=== PATIENT | male | born 1955 | race Caucasian/White ===

== ENCOUNTER 2024-06-06 16:38 | Inpatient (IN) | payer MEDICARE, OTHER, SELFPAY ==
[2024-06-06] VITALS (25 sets, daily range): BP systolic 20–159; BP diastolic 55–97; BMI 35.9
[2024-06-06] MEDS: ZOFRAN 4 MG IV (11:23)
[2024-06-06] MEDS: SUBLIMAZE 100 MCG IV (11:23)
[2024-06-06 11:34] LABS: Hemoglobin 19.4 g/dL (13.0-18.0); Mean Corpuscular Hgb 32.4 pg (27.0-31.0); Mean Platelet Volume 9.7 fL (7.4-10.4); Nucleated Red Blood Cells % 0 % (-)
--- NOTE | 2024-06-06 11:39 | ED.GENMED ---
History of Present Illness
<Neil Noe PA-C - Last Filed: 06/06/24 13:38>
General
Chief Complaint: Abdominal Pain
Time Seen by Provider: 06/06/24 11:09
History of Present Illness
History of Present Illness:
68-year-old male with history of insulin-dependent diabetes and peptic ulcer disease presents to the emergency department for evaluation of epigastric pain that began 2 days ago, states that the pain was quite minimal for the past 48 hours but
abruptly became worse this morning. On arrival the patient is moaning and noted to be mottled from the periumbilical region down to the legs. He denies any vomiting or melanotic stools. No history of intra-abdominal surgeries. No known history
of aortic vascular disease.
Past History
<Neil Noe PA-C - Last Filed: 06/06/24 13:38>
Past History
ED Past Medical History: None
ED Past Surgical History: Other (Removal of a 'intestinal cyst')
Social History
Tobacco: Smoker
Alcohol: Occasional
Drug: None
Review of Systems
<Neil Noe PA-C - Last Filed: 06/06/24 13:38>
Review of Systems
Allergies reviewed?: Yes
All Other Systems: ROS reviewed and negative except as documented in HPI and ROS
Phy Exam
<Neil Noe PA-C - Last Filed: 06/06/24 13:38>
Physical Exam
Physical Exam:
GEN: Toxic appearing, diffuse lower abdominal/lower extremity mottling
Eyes: PERRLA, EOMs intact, no scleral icterus
HENT: NCAT, oral mucosa moist,
Lungs: CTAB, no wheezes, rales, rhonchi, normal chest wall excursion
Cardiac: Tachycardic, regular
Abdomen: Firm, peritoneal
Neuro: AO x 3
MSK: No gross deformity or ecchymosis. No edema. No digital clubbing
Skin: Abdominal and lower extremity mottling, dorsalis pedis pulses 2+ bilaterally
Psych: Anxious and uncomfortable
Course
<Neil Noe PA-C - Last Filed: 06/06/24 13:38>
Orders/Labs/Results
Orders:
Orders
06/06/24 11:03
Electrocardiogram (*1) Urgent
Reason for Study: Abdominal Pain
06/06/24 11:04
EKG- Treatment ONCE
06/06/24 11:06
Complete Blood Count/With Diff Urgent
Comprehensive Metabolic Panel Urgent
Lipase Urgent
06/06/24 11:19
CT Chest/abd/pelvis Angio W/wo Stat
Comment:
Reason For Exam: Abdominal pain mottled extremis
Cardiac Monitoring- Treatment ONCE
IV Insert/Care/Rem.- Treatment PRN
Fentanyl Citrate/Pf [Sublimaze] 100 mcg .ROUTE .STK-MED ONE
Ondansetron Injectable [Zofran] 4 mg .ROUTE .STK-MED ONE
Pulse Ox/cont/shift [RESP] Stat
Quantity: 1
06/06/24 11:20
Electrocardiogram (*1) Stat
Reason for Study: Other
Other Reason for Exam: GI Bleed
EKG- Treatment ONCE
06/06/24 11:21
Fentanyl Citrate/Pf [Sublimaze] 100 mcg IV NOW STA
Ondansetron Injectable [Zofran] 4 mg IV NOW STA
06/06/24 11:24
Type+Screen Urgent
Lactic Acid Urgent
06/06/24 11:50
Blood Culture Urgent
CEDRIC Source: Blood/Venous
Specimen Description:
Blood Culture Urgent
CEDRIC Source: Blood/Venous
Specimen Description:
06/06/24 11:55
Ampicillin/Sulbactam 3 G [Unasyn] 3 gm 0.9% Sodium Chloride 100 ml [Nss] 100 ml IV NOW
06/06/24 11:57
0.9% Sodium Chloride 1000 ml [Nss] 1,000 ml IV BOLUS
HYDROmorphone [Dilaudid] 1 mg IV NOW STA
06/06/24 12:06
0.9% Sodium Chloride 1000 ml [Nss] 1,750 ml IV BOLUS
06/06/24 12:37
Pantoprazole [Protonix IV] 40 mg IV NOW STA
06/06/24 12:42
HYDROmorphone [Dilaudid] 0.25 mg IV PACU-Q5MPRN PRN
HYDROmorphone [Dilaudid] 0.5 mg IV PACU-Q5MPRN PRN
Meperidine [Demerol] 12.5 mg IV PACU-Q5MPRN PRN
Ondansetron Injectable [Zofran] 4 mg IV PACU-ONCEPRN PRN
Prochlorperazine [Compazine] 5 mg IV PACU-ONCEPRN PRN
Notify MD As Directed
Notify physician if: for SDS patients with known or suspected sleep obstructive sleep apnea, monitor in the
PACU.
Notify MD for any apneic/desaturation episodes
O2 Therapy [RESP] Urgent
Titrate/Wean O2 to maintain O2 sat greater than (%): 92
Special Instructions: -Provide supplemental oxygen to achieve O2 sat of 92% or greater.
-After 15 min, may wean O2 and discontinue if patient is able to maintain O2 sat of 92%
or greater during recovery period.
If patient is a discharge home, without oxygen therapy, notify anestheiologist if
unable to maintain O2 SAT of 92% or greater on room air for MD clearance.
06/06/24 12:45
Normosol (Mult Electrolytes) [Normosol-R] 1,000 ml IV PER PROTOCOL
06/06/24 13:00
HYDROmorphone [Dilaudid] 0.5 mg IV NOW STA
06/06/24 13:28
Bupivacaine Mpf 0.25% [Sensorcaine-Mpf 0.25% Vial] 30 ml .ROUTE .STK-MED ONE
Dexamethasone Pf [Decadron] 10 mg .ROUTE .STK-MED ONE
06/06/24 14:06
Bupivacaine Mpf 0.25% [Sensorcaine-Mpf 0.25% Vial] 30 ml .ROUTE .STK-MED ONE
Dexamethasone Sod Phosphate [Decadron] 20 mg .ROUTE .STK-MED ONE
Fentanyl Citrate/Pf [Sublimaze] 100 mcg .ROUTE .STK-MED ONE
Lidocaine HCl/Pf [Xylocaine-Mpf 1% Vial] 50 mg .ROUTE .STK-MED ONE
Ondansetron Injectable [Zofran] 4 mg .ROUTE .STK-MED ONE
Phenylephrine HCl/0.9% NaCl [Antony-Synephrine] 1,000 mcg .ROUTE .STK-MED ONE
Propofol [Diprivan] 20 ml .ROUTE .STK-MED
Rocuronium [place] [Rocuronium] 50 mg .ROUTE .STK-MED ONE
Succinylcholine Chloride [Succinylcholine] 200 mg .ROUTE .STK-MED ONE
06/06/24 14:11
Anaerobic Culture Routine
CEDRIC Source: Peritoneal Fluid
Specimen Description:
Date Specimen was Collected: 06/06/24
Time Specimen was Collected: 14:13
Wound/Abscess/Other Culture Routine
CEDRIC Source: Abdomen
Specimen Description:
Date Specimen was Collected: 06/06/24
Time Specimen was Collected: 14:13
Comment: Peritoneal fluid
06/06/24 14:46
Sugammadex Sodium [Bridion] 200 mg .ROUTE .STK-MED ONE
06/06/24 Dinner
NPO
Allow oral meds: No
Allow clear liquids: No
NPO with Ice Chips: No
06/06/24 15:08
Phenylephrine HCl/0.9% NaCl [Antony-Synephrine] 1,000 mcg .ROUTE .STK-MED ONE
06/06/24 15:14
Code Status As Directed
Resuscitation Status: Full Code
HYDROmorphone [Dilaudid] 0.5 mg IV Q3HPRN PRN
HYDROmorphone [Dilaudid] 1 mg IV Q3HPRN PRN
Activity As Directed
Activity Level: Out of Bed-Early Mobility
Anti-embolism (JEREMIAH) Hose As Directed
Type: Thigh high
Drains As Directed
Type: Piotr Tobias
Location: right abdomen
Dressing change/site care: cover with drain sponge: change daily
To suction: Yes: bulb
Gastrointestinal Tubes As Directed
Type: [place] sump
To suction?: Yes
Type of suction: Low intermittent
Directions to clamp NG tube: clamp for ambulation <30min
Irrigate tube?: Yes
Irrigant: Tap Water
Frequency: Q4H
Amount in mls: 30
Irrigation Directions: Irrigate Q4H and PRN
Intake/ Output As Directed
Frequency: Per unit guidelines
Vital Signs As Directed
Frequency: Per unit guidelines
06/06/24 15:15
0.9% Sodium Chloride 1000 ml [Nss] 1,000 ml IV 150 mls/hr
06/06/24 15:16
Catheter- Indwelling As Directed
Reason for insertion: Christina-Op Remove POD #2
06/06/24 15:17
Phenylephrine [Antony-Synephrine] 10 mg .ROUTE .STK-MED ONE
06/06/24 15:19
Ondansetron Injectable [Zofran] 4 mg IV Q6HPRN PRN
06/06/24 15:20
Pneumatic Compression Sleeves As Directed
Type: Knee high
DX Deep Vein Thrombosis Video Routine
06/06/24 15:55
Pantoprazole 80 mg/100 ml Nss [Protonix] 80 mg in 100 ml IV NOW
06/06/24 15:56
Consult Hospitalist [HOSPITALIST CONSULT] Routine
Consulting Provider: Maria Isabel Santos
Was physician already notified: Yes
Reason for consult: medical management
Consult Human Resources Admin [Human Resources Admin Consult] Routine
Consulting Provider: Nela Sims
Was physician already notified: Yes
Reason for consult: intensive care management
Consult Surgery [SURGICAL CONSULT] Stat
Consulting Provider: Jass Sanchez
Was physician already notified: Yes
Reason for consult: ED consult for perforated viscous
06/06/24 16:00
Pantoprazole 80 mg/100 ml Nss [Protonix] 80 mg in 100 ml IV Q10H
Piperacillin/Tazo 3.375 Gram [Zosyn] 3.375 gram in 50 ml IV Q6H
06/06/24 16:05
Insulin Human Regular [Novolin R] 100 units .ROUTE .STK-MED ONE
06/06/24 16:19
Dextrose 50%-Water [Dextrose 50% Syringe] 12.5 grams IV PROCEDURE-PRN PRN
Insulin Aspart [NOVOLOG vial] See Protocol SC PROCEDURE- Q2H PRN PRN
Bedside Glucose Monitoring As Directed
Frequency: Q2H
Additional Instructions:: UNTIL PATIENT LEAVES PROCEDURE AREA
06/06/24 16:27
Admit Patient As Directed
Co-Sign Provider:
Level of Care: Inpatient admission
Assign to:: ICU
Physician / Group: maria isabel santos
Diagnosis: Perforated duodenal ulcer, peritonitis
Reason for Hospitalization: Perforated duodenal ulcer, peritonitis
Expected length of stay greater than two midnights?: Yes
ELOS- Estimated Length of Stay in days: 3
I certify the patient meets the requirements for IP care: Yes
06/06/24 16:30
Change Attending Physician As Directed
Change attending physician to: Maria Isabel Santos
06/06/24 16:31
HydrALAZINE [Apresoline] 5 mg IV Q6HPRN PRN
06/06/24 20:00
Pantoprazole [Protonix IV] 40 mg IV BID
06/07/24 06:00
Basic Metabolic Panel IN AM
Complete Blood Count/No Diff IN AM
Complete Blood Count/With Diff IN AM
Comprehensive Metabolic Panel IN AM
06/07/24 08:00
Nicotine [Nicoderm Transdermal] 21 mg TRANSDERM DAILY
Prednisolone Acetate [Pred Forte 1% Eye Drops] 1 drop LEFT EYE DAILY
06/08/24 06:00
Complete Blood Count/With Diff IN AM
Comprehensive Metabolic Panel IN AM
Abnormal Lab Results
06/06/24 06/06/24 06/06/24
11:06 11:24 16:03
WBC 13.2 H 10^3/uL
(4.8-10.8)
Hgb 19.4 H g/dL
(13.0-18.0)
Hct 54.8 H %
(39.0-52.0)
MCH 32.4 H pg
(27.0-31.0)
Abs Immat Gran (auto) 0.1 H 10^3/uL
(0-0.05)
Absolute Neuts (auto) 11.3 H 10^3/uL
(1.4-6.5)
Absolute Lymphs (auto) 0.9 L 10^3/uL
(1.2-3.4)
Absolute Monos (auto) 0.9 H 10^3/uL
(0.1-0.6)
Immature Gran % 0.6 H %
(0-0.5)
Neutrophils % 85.3 H %
(42.2-75.2)
Lymphocytes % 7.1 L %
(20.5-51.1)
Carbon Dioxide 21 L mmol/L
(22-30)
BUN 25 H mg/dl
(9-20)
Glucose 294 H mg/dl
(70-99)
Lactic Acid 3.1 H mmol/L
(0.7-2.0)
ALT 54 H U/L
(0-50)
Alkaline Phosphatase 154 H U/L
(38-126)
POC Glucose 203 H mg/dl
(70-99)
06/06/24 11:06
06/06/24 11:06
Vital Signs
Initial and Last Documented VS:
Initial Vital Signs
Temp Pulse Resp BP Pulse Ox
97.7 F 102 28 146/83 98
06/06/24 11:02 06/06/24 11:02 06/06/24 11:02 06/06/24 11:02 06/06/24 11:02
Last Documented Vital Signs
Temp Pulse Resp BP Pulse Ox
98.7 F 108 16 122/68 98
06/06/24 16:00 06/06/24 16:45 06/06/24 16:45 06/06/24 16:45 06/06/24 16:45
<Aubrey Rodgers MD - Last Filed: 06/06/24 16:52>
Orders/Labs/Results
Orders:
Orders
06/06/24 11:03
Electrocardiogram (*1) Urgent
Reason for Study: Abdominal Pain
06/06/24 11:04
EKG- Treatment ONCE
06/06/24 11:06
Complete Blood Count/With Diff Urgent
Comprehensive Metabolic Panel Urgent
Lipase Urgent
06/06/24 11:19
CT Chest/abd/pelvis Angio W/wo Stat
Comment:
Reason For Exam: Abdominal pain mottled extremis
Cardiac Monitoring- Treatment ONCE
IV Insert/Care/Rem.- Treatment PRN
Fentanyl Citrate/Pf [Sublimaze] 100 mcg .ROUTE .STK-MED ONE
Ondansetron Injectable [Zofran] 4 mg .ROUTE .STK-MED ONE
Pulse Ox/cont/shift [RESP] Stat
Quantity: 1
06/06/24 11:20
Electrocardiogram (*1) Stat
Reason for Study: Other
Other Reason for Exam: GI Bleed
EKG- Treatment ONCE
06/06/24 11:21
Fentanyl Citrate/Pf [Sublimaze] 100 mcg IV NOW STA
Ondansetron Injectable [Zofran] 4 mg IV NOW STA
06/06/24 11:24
Type+Screen Urgent
Lactic Acid Urgent
06/06/24 11:50
Blood Culture Urgent
CEDRIC Source: Blood/Venous
Specimen Description:
Blood Culture Urgent
CEDRIC Source: Blood/Venous
Specimen Description:
06/06/24 11:55
Ampicillin/Sulbactam 3 G [Unasyn] 3 gm 0.9% Sodium Chloride 100 ml [Nss] 100 ml IV NOW
06/06/24 11:57
0.9% Sodium Chloride 1000 ml [Nss] 1,000 ml IV BOLUS
HYDROmorphone [Dilaudid] 1 mg IV NOW STA
06/06/24 12:06
0.9% Sodium Chloride 1000 ml [Nss] 1,750 ml IV BOLUS
06/06/24 12:37
Pantoprazole [Protonix IV] 40 mg IV NOW STA
06/06/24 12:42
HYDROmorphone [Dilaudid] 0.25 mg IV PACU-Q5MPRN PRN
HYDROmorphone [Dilaudid] 0.5 mg IV PACU-Q5MPRN PRN
Meperidine [Demerol] 12.5 mg IV PACU-Q5MPRN PRN
Ondansetron Injectable [Zofran] 4 mg IV PACU-ONCEPRN PRN
Prochlorperazine [Compazine] 5 mg IV PACU-ONCEPRN PRN
Notify MD As Directed
Notify physician if: for SDS patients with known or suspected sleep obstructive sleep apnea, monitor in the
PACU.
Notify MD for any apneic/desaturation episodes
O2 Therapy [RESP] Urgent
Titrate/Wean O2 to maintain O2 sat greater than (%): 92
Special Instructions: -Provide supplemental oxygen to achieve O2 sat of 92% or greater.
-After 15 min, may wean O2 and discontinue if patient is able to maintain O2 sat of 92%
or greater during recovery period.
If patient is a discharge home, without oxygen therapy, notify anestheiologist if
unable to maintain O2 SAT of 92% or greater on room air for MD clearance.
06/06/24 12:45
Normosol (Mult Electrolytes) [Normosol-R] 1,000 ml IV PER PROTOCOL
06/06/24 13:00
HYDROmorphone [Dilaudid] 0.5 mg IV NOW STA
06/06/24 13:28
Bupivacaine Mpf 0.25% [Sensorcaine-Mpf 0.25% Vial] 30 ml .ROUTE .STK-MED ONE
Dexamethasone Pf [Decadron] 10 mg .ROUTE .STK-MED ONE
06/06/24 14:06
Bupivacaine Mpf 0.25% [Sensorcaine-Mpf 0.25% Vial] 30 ml .ROUTE .STK-MED ONE
Dexamethasone Sod Phosphate [Decadron] 20 mg .ROUTE .STK-MED ONE
Fentanyl Citrate/Pf [Sublimaze] 100 mcg .ROUTE .STK-MED ONE
Lidocaine HCl/Pf [Xylocaine-Mpf 1% Vial] 50 mg .ROUTE .STK-MED ONE
Ondansetron Injectable [Zofran] 4 mg .ROUTE .STK-MED ONE
Phenylephrine HCl/0.9% NaCl [Antony-Synephrine] 1,000 mcg .ROUTE .STK-MED ONE
Propofol [Diprivan] 20 ml .ROUTE .STK-MED
Rocuronium [place] [Rocuronium] 50 mg .ROUTE .STK-MED ONE
Succinylcholine Chloride [Succinylcholine] 200 mg .ROUTE .STK-MED ONE
06/06/24 14:11
Anaerobic Culture Routine
CEDRIC Source: Peritoneal Fluid
Specimen Description:
Date Specimen was Collected: 06/06/24
Time Specimen was Collected: 14:13
Wound/Abscess/Other Culture Routine
CEDRIC Source: Abdomen
Specimen Description:
Date Specimen was Collected: 06/06/24
Time Specimen was Collected: 14:13
Comment: Peritoneal fluid
06/06/24 14:46
Sugammadex Sodium [Bridion] 200 mg .ROUTE .STK-MED ONE
06/06/24 Dinner
NPO
Allow oral meds: No
Allow clear liquids: No
NPO with Ice Chips: No
06/06/24 15:08
Phenylephrine HCl/0.9% NaCl [Antony-Synephrine] 1,000 mcg .ROUTE .STK-MED ONE
06/06/24 15:14
Code Status As Directed
Resuscitation Status: Full Code
HYDROmorphone [Dilaudid] 0.5 mg IV Q3HPRN PRN
HYDROmorphone [Dilaudid] 1 mg IV Q3HPRN PRN
Activity As Directed
Activity Level: Out of Bed-Early Mobility
Anti-embolism (JEREMIAH) Hose As Directed
Type: Thigh high
Drains As Directed
Type: Piotr Tobias
Location: right abdomen
Dressing change/site care: cover with drain sponge: change daily
To suction: Yes: bulb
Gastrointestinal Tubes As Directed
Type: [employer] sump
To suction?: Yes
Type of suction: Low intermittent
Directions to clamp NG tube: clamp for ambulation <30min
Irrigate tube?: Yes
Irrigant: Tap Water
Frequency: Q4H
Amount in mls: 30
Irrigation Directions: Irrigate Q4H and PRN
Intake/ Output As Directed
Frequency: Per unit guidelines
Vital Signs As Directed
Frequency: Per unit guidelines
06/06/24 15:15
0.9% Sodium Chloride 1000 ml [Nss] 1,000 ml IV 150 mls/hr
06/06/24 15:16
Catheter- Indwelling As Directed
Reason for insertion: Christina-Op Remove POD #2
06/06/24 15:17
Phenylephrine [Antony-Synephrine] 10 mg .ROUTE .STK-MED ONE
06/06/24 15:19
Ondansetron Injectable [Zofran] 4 mg IV Q6HPRN PRN
06/06/24 15:20
Pneumatic Compression Sleeves As Directed
Type: Knee high
DX Deep Vein Thrombosis Video Routine
06/06/24 15:55
Pantoprazole 80 mg/100 ml Nss [Protonix] 80 mg in 100 ml IV NOW
06/06/24 15:56
Consult Hospitalist [HOSPITALIST CONSULT] Routine
Consulting Provider: Maria Isabel Santos
Was physician already notified: Yes
Reason for consult: medical management
Consult Human Resources Admin [Human Resources Admin Consult] Routine
Consulting Provider: Nela Sims
Was physician already notified: Yes
Reason for consult: intensive care management
Consult Surgery [SURGICAL CONSULT] Stat
Consulting Provider: Jass Sanchez
Was physician already notified: Yes
Reason for consult: ED consult for perforated viscous
06/06/24 16:00
Pantoprazole 80 mg/100 ml Nss [Protonix] 80 mg in 100 ml IV Q10H
Piperacillin/Tazo 3.375 Gram [Zosyn] 3.375 gram in 50 ml IV Q6H
06/06/24 16:05
Insulin Human Regular [Novolin R] 100 units .ROUTE .STK-MED ONE
06/06/24 16:19
Dextrose 50%-Water [Dextrose 50% Syringe] 12.5 grams IV PROCEDURE-PRN PRN
Insulin Aspart [NOVOLOG vial] See Protocol SC PROCEDURE- Q2H PRN PRN
Bedside Glucose Monitoring As Directed
Frequency: Q2H
Additional Instructions:: UNTIL PATIENT LEAVES PROCEDURE AREA
06/06/24 16:27
Admit Patient As Directed
Co-Sign Provider:
Level of Care: Inpatient admission
Assign to:: ICU
Physician / Group: maria isabel santos
Diagnosis: Perforated duodenal ulcer, peritonitis
Reason for Hospitalization: Perforated duodenal ulcer, peritonitis
Expected length of stay greater than two midnights?: Yes
ELOS- Estimated Length of Stay in days: 3
I certify the patient meets the requirements for IP care: Yes
06/06/24 16:30
Change Attending Physician As Directed
Change attending physician to: Maria Isabel Santos
06/06/24 16:31
HydrALAZINE [Apresoline] 5 mg IV Q6HPRN PRN
06/06/24 20:00
Pantoprazole [Protonix IV] 40 mg IV BID
06/07/24 06:00
Basic Metabolic Panel IN AM
Complete Blood Count/No Diff IN AM
Complete Blood Count/With Diff IN AM
Comprehensive Metabolic Panel IN AM
06/07/24 08:00
Nicotine [Nicoderm Transdermal] 21 mg TRANSDERM DAILY
Prednisolone Acetate [Pred Forte 1% Eye Drops] 1 drop LEFT EYE DAILY
06/08/24 06:00
Complete Blood Count/With Diff IN AM
Comprehensive Metabolic Panel IN AM
Abnormal Lab Results
06/06/24 06/06/24 06/06/24
11:06 11:24 16:03
WBC 13.2 H 10^3/uL
(4.8-10.8)
Hgb 19.4 H g/dL
(13.0-18.0)
Hct 54.8 H %
(39.0-52.0)
MCH 32.4 H pg
(27.0-31.0)
Abs Immat Gran (auto) 0.1 H 10^3/uL
(0-0.05)
Absolute Neuts (auto) 11.3 H 10^3/uL
(1.4-6.5)
Absolute Lymphs (auto) 0.9 L 10^3/uL
(1.2-3.4)
Absolute Monos (auto) 0.9 H 10^3/uL
(0.1-0.6)
Immature Gran % 0.6 H %
(0-0.5)
Neutrophils % 85.3 H %
(42.2-75.2)
Lymphocytes % 7.1 L %
(20.5-51.1)
Carbon Dioxide 21 L mmol/L
(22-30)
BUN 25 H mg/dl
(9-20)
Glucose 294 H mg/dl
(70-99)
Lactic Acid 3.1 H mmol/L
(0.7-2.0)
ALT 54 H U/L
(0-50)
Alkaline Phosphatase 154 H U/L
(38-126)
POC Glucose 203 H mg/dl
(70-99)
06/06/24 11:06
06/06/24 11:06
Vital Signs
Initial and Last Documented VS:
Initial Vital Signs
Temp Pulse Resp BP Pulse Ox
97.7 F 102 28 146/83 98
06/06/24 11:02 06/06/24 11:02 06/06/24 11:02 06/06/24 11:02 06/06/24 11:02
Last Documented Vital Signs
Temp Pulse Resp BP Pulse Ox
98.7 F 108 16 122/68 98
06/06/24 16:00 06/06/24 16:45 06/06/24 16:45 06/06/24 16:45 06/06/24 16:45
<Neil Noe PA-C - Last Filed: 06/06/24 13:38>
MDM/Problems Addressed
MDM/Problems Addressed:
Was called to the room to assess this patient by nursing staff due to his unusual appearance of the extremity mottling. Initial diagnostic considerations for aortic vascular emergency/mesenteric ischemia, perforated viscus given his peritoneal
exam. The mottling certainly concerning but he does have symmetric although thready lower extremity pulses. After ultrasound-guided IV access was performed by myself the patient was taken emergently to CT scan for a CT angiogram to evaluate for
same, this did reveal incidental aortic however with no evidence of dissection or hemorrhage symptoms are likely due to perforation. General surgery was consulted urgently the patient be taken for urgent operative intervention. Broad-spectrum IV
antibiotics and aggressive fluid resuscitation initiated in the emergency department.
<Neil Noe PA-C - Last Filed: 06/06/24 13:38>
*Critical Care Note
Total Time (30-74mins, 75-104mins- exclusive of procedures): 60 min
comment:
Critical care time: 60 minutes
Critical care time was exclusive of: Separately billable procedures, treating other patients, and teaching time
Critical care was necessary to treat or prevent imminent or life-threatening deterioration of the following conditions: Perforated viscus/abdominal emergency
Critical care time spent personally by me on the following activities:
[x] Review of old charts
[x] Obtaining history from patient or surrogate
[x] Ordering and review of the laboratory studies
[x] Ordering and review of radiographic studies
[x] Ordering and performing treatments and interventions
[x] Patient patient's response to treatment
[x] Development of treatment plan with patient or surrogate
ED Attending Note
<Neil Noe PA-C - Last Filed: 06/06/24 13:38>
-
Portions of this chart may have been created with voice recognition software.� Occasional wrong word or��sound alike� substitutions may have occurred due to the inherent limitations of voice recognition software.
<Aubrey Rodgers MD - Last Filed: 06/06/24 16:52>
ED Attending Note
Patient seen and examined by attending physician: Yes
I performed the substantive portion of visit, reviewed & personally made and approve the management plan that is documented in note by myself or SALLY.: Yes
ED Attending Note:
68-year-old male presents with severe abdominal pain. Started 2 to 3 days ago. Became severe at 3 AM this morning. Suddenly worse. No history of same. No chest pain or shortness of breath.
Patient with a remote ulcer history. Diabetic.
On exam patient is ill-appearing. Stable blood pressure minimally tachycardic. Clearly mottled most of the abdomen down and including the legs. Femoral pulses intact. Tenderness more in the upper abdomen.
Initial issue was IV access which was obtained by physician operations assistant using ultrasound. Patient was immediately sent to CAT scan CT angio chest abdomen pelvis. Concern for vascular catastrophe or perforated viscus. Fluids labs type and screen
pain management nausea management.
Patient was assisted over to CAT scan. Initial CAT scan showed a concern for an abdominal aneurysm and possible free air. Also some inflammatory stranding. Radiology was contacted immediately. A quick review is a perforated duodenum. Patient
does have a aortic aneurysm however this is stable.
Surgery was contacted immediately made aware of his critical condition. Antibiotics ordered.
Agree with 60 minutes of critical care
Discharge Plan
Departure
Patient Disposition: Admit
Date of Disposition: 06/06/24
Time of Disposition: 12:24
Admit to: IMU
Presentation/result/management discussed w/ accepting MD/DO: GEn Surg
Discharge Problem:
Perforated duodenal ulcer
Interventions
Interventions:
*Risk Screen - Suicide Last Done: 06/06/24 11:02
*General Assessment Last Done: 06/06/24 11:02
*Neglect/Abuse Screening Last Done: 06/06/24 11:02
*ED COVID-19 Vaccine History Last Done: 06/06/24 11:02
*Nursing Disposition Last Done: 06/06/24 13:26
[facility]yjw[facility] Assessment Last Done: 06/06/24 11:17
Discharge Date and Time
Discharge Date/Time: 06/06/24 13:27
[2024-06-06 11:45] LABS: % Basophils 0.3 % (0-2); % Immature Granulocytes 0.6 % (0-0.5); % Lymphocytes 7.1 % (20.5-51.1); % Monocytes 6.7 % (1.7-9.3); % Neutrophils 85.3 % (42.2-75.2); Absolute Immature Granulocytes 0.1 10^3/uL (0-0.05); Absolute Lymphocytes 0.9 10^3/uL (1.2-3.4); Absolute Monocytes 0.9 10^3/uL (0.1-0.6); Absolute Neutrophils 11.3 10^3/uL (1.4-6.5); Hematocrit 54.8 % (39.0-52.0); Mean Corp Hgb Conc. 35.4 g/dL (33.0-37.0); Mean Corpuscular Volume 91.5 fL (80.0-94.0); Platelet Count 256 10^3/uL (130-400); Red Blood Cell Count 5.99 10^6/uL (4.70-6.10); White Blood Cell Count 13.2 10^3/uL (4.8-10.8)
[2024-06-06 11:55] LABS: ALT (SGPT) 54 U/L (0-50); AST (SGOT) 38 U/L (17-59); Albumin 4.7 g/dl (3.5-5.0); Alkaline Phosphatase 154 U/L (38-126); Blood Urea Nitrogen 25 mg/dl (9-20); Calcium 9.6 mg/dl (8.4-10.2); Carbon Dioxide 21 mmol/L (22-30); Chloride 99 mmol/L (98-107); Glucose 294 mg/dl (70-99); Lipase 107 U/L (23-300); Potassium 4.3 mmol/L (3.5-5.1); Sodium 135 mmol/L (135-145); Total Bilirubin 1.2 mg/dl (0.2-1.3); Total Protein 7.4 g/dl (6.3-8.2); eGFR > 60.00
[2024-06-06 11:56] LABS: Lactic Acid 3.1 mmol/L (0.7-2.0)
[2024-06-06] MEDS: DILAUDID 1 MG IV (12:03)
[2024-06-06] MEDS: NSS 1000 IV ×3 (12:05→23:06)
[2024-06-06] MEDS: UNASYN IV (12:18)
[2024-06-06] MEDS: NSS 1750 IV (12:19)
[2024-06-06] MEDS: PROTONIX IV 40 MG IV (13:04)
[2024-06-06] MEDS: DILAUDID 0.5 MG IV ×3 (13:04→23:07)
--- NOTE | 2024-06-06 13:04 | CON.GS ---
Consultation
-
Performing Provider: Laura
Reason for Consultation: Peritonitis
Medical History
-
Chief Complaint: Generalized abdominal pain
History of Present Illness:
Patient is a 68-year-old male presenting to the emergency department secondary to a few day history of worsening upper abdominal pain which is now diffuse.
He has a previous history of a duodenal ulcer diagnosed in 2020 when he was having black stool, weight loss and epigastric abdominal pain. He underwent upper GI endoscopy during hospitalization identifying a 8 mm cratered nonbleeding ulcer in the
duodenal bulb with diffuse duodenitis. He was transfused 2 units of hemoglobin during that hospitalization which she responded appropriately to without further bleeding. He was discharged with recommendation for PPI twice daily.
Past Medical History
Past Medical History: GERD, IDDM and Other (History of duodenal ulcer)
Past Surgical History: Other (Patient and family deny any past abdominal surgical history)
Social History
Tobacco: Smoker
Family History
Family History: Reviewed & Not Pertinent
Allergies / Home Medications
Allergy/AdvReac Type Severity Reaction Status Date / Time
No Known Allergies Allergy Unverified 01/10/21 15:59
�Medication �Instructions �Recorded �Confirmed �Type
multivitamin with folic acid 400 1 tab PO DAILY Supplement 01/10/21 06/06/24 History
mcg tablet (Tab-A-Ebenezer)
omega 2-zlh-nwc-fish oil 300 1 cap PO DAILY Supplement 01/10/21 06/06/24 History
mg-1,000 mg capsule (Fish Oil)
insulin glargine 100 unit/mL (3 20 unit SC HS 06/06/24 06/06/24 History
mL) subcutaneous pen (Basaglar
KwikPen U-100 Insulin)
lisinopril 10 mg tablet 10 mg PO DAILY 06/06/24 06/06/24 History
methylsulfonylmethane 500 mg 500 mg PO DAILY 06/06/24 06/06/24 History
capsule
prednisolone acetate 1 % eye 1 drp LEFT EYE DAILY 06/06/24 06/06/24 History
drops,suspension
Review of Systems
-
Unable to obtain full review of systems at this time due to: Acuity
History Source: Patient and Family
A 10 point review of systems was completed, and was negative except as per HPI.
Physical Exam
Vital Signs
Temp Pulse Resp BP Pulse Ox
97.7 F 100 19 158/97 98
06/06/24 11:02 06/06/24 12:00 06/06/24 12:00 06/06/24 12:00 06/06/24 12:00
06/05/24 06/06/24 06/07/24
06:59 06:59 06:59
Actual Weight 90.4 kg
Lab Results
06/06/24 11:06
06/06/24 11:06
WBC 13.2 10^3/uL (4.8-10.8) H 06/06/24 11:06
Hgb 19.4 g/dL (13.0-18.0) H 06/06/24 11:06
Hct 54.8 % (39.0-52.0) H 06/06/24 11:06
Plt Count 256 10^3/uL (130-400) 06/06/24 11:06
Abs Immat Gran (auto) 0.1 10^3/uL (0-0.05) H 06/06/24 11:06
Neutrophils % 85.3 % (42.2-75.2) H 06/06/24 11:06
Data Reviewed
-
CT Scan: Image Personally Visualized and interpreted, Report Reviewed by me, Discussed with Physician, Discussed with Patient and Discussed with Family
Labs: Labs Reviewed by me, Discussed with Physician and Discussed with Patient
Assessment / Plan
-
Assessment: 68-year-old male presenting with generalized peritonitis and CT imaging highly suggestive of perforated duodenal ulcer particularly in light of his diagnosis of a duodenal ulcer in 2021.
Reviewed with patient and his 2 sons at bedside indications for emergent surgical intervention secondary to peritonitis, exhibiting signs of sepsis and perforated viscus. Reviewed anticipated operative procedure of exploratory laparotomy, repair
presumed perforated duodenal ulcer in detail including potential operative findings and the management. Reviewed benefits of surgery, alternative treatment options, risks such as but not limited to bleeding requiring transfusion, infectious and
wound related complications, iatrogenic injury to surrounding viscera. We discussed the high risk nature of emergency surgery for perforated viscus with the need for postoperative anticipated intensive care unit monitoring and care. Patient may
remain intubated postoperatively. He will likely be having to be managed for sepsis postoperatively which would place him at risk for additional perioperative medical complications/comorbidities.
Any of the patient's or his family members concerns or questions were fully addressed and written informed consent was obtained.
Plan: Patient will be sent for the OR momentarily for surgery
PPI -bolus followed by drip
Broad-spectrum antibiotic coverage -cultures will be obtained intraoperatively
Notified hospitalist and user interface engineer of anticipated ICU admission.
--- NOTE | 2024-06-06 13:20 | CON.INTV ---
Consultation
Consultation Request
Date/Time Consultation Requested: 06/06
Date/Time Consultation Performed: 06/06
Reason for Consultation: Critical care
Medical History
-
History of Present Illness:
History obtained from patient, son at the bedside and reviewing inpatient and outpatient records. 68-year-old male with history of diabetes, upper GI bleed in 2020 with duodenitis and bulbar duodenal ulcer requiring transfusion, now presents with
acute onset abdominal pain on 06/03. He did not seek medical attention. He describes some night sweats and some mild nausea but denies any chest pain, shortness of breath, falls, syncope. Because of worsening symptoms, he brought himself into
[facility] where upon arrival afebrile, pulse 102, breathing at 28, blood pressure 146/83, 98%. Patient was found to have white count 13.2, hemoglobin 19.4, normal creatinine. CT imaging confirmed free air, perforated duodenal ulcer.
Aortic aneurysm stable. Patient was seen by surgery, plans for OR. PPI started, broad-spectrum antibiotics started. Patient was seen by myself in the ED
.
PMH: Diabetes, history of duodenal ulcer with blood loss 2020, GERD/gastritis/duodenitis, history of hepatitis A secondary to food poisoning
Past Medical History
Past Medical History: None (See above)
Past Surgical History: None (See above)
Social History
Tobacco: Smoker ([id number], continues to smoke 1 pack a day)
Alcohol: Occasional
Drug: None
Personal:
Living: With Family
Employment: Employed ([employer])
Family History
Family History: Other (Family history negative for blood clots, lung cancer. There is a family history of colon cancer)
Allergies / Home Medications
Allergies
Allergy/AdvReac Type Severity Reaction Status Date / Time
No Known Allergies Allergy Unverified 01/10/21 15:59
Home Medications
�Medication �Instructions �Recorded �Confirmed �Last Taken �Type
multivitamin with folic acid 400 1 tab PO DAILY Supplement 01/10/21 06/06/24 06/05/24 History
mcg tablet (Tab-A-Ebenezer)
omega 5-jmy-tzc-fish oil 300 1 cap PO DAILY Supplement 01/10/21 06/06/24 06/05/24 History
mg-1,000 mg capsule (Fish Oil)
insulin glargine 100 unit/mL (3 20 unit SC HS 06/06/24 06/06/24 06/05/24 History
mL) subcutaneous pen (Basaglar
KwikPen U-100 Insulin)
lisinopril 10 mg tablet 10 mg PO DAILY 06/06/24 06/06/24 06/05/24 History
methylsulfonylmethane 500 mg 500 mg PO DAILY 06/06/24 06/06/24 06/05/24 History
capsule
prednisolone acetate 1 % eye 1 drp LEFT EYE DAILY 06/06/24 06/06/24 06/05/24 History
drops,suspension
Review of Systems
-
All other systems: Negative unless noted (Patient has lost 50 pounds over the last year according to son)
Vitals / Labs / Diagnostic Testing
Vital Signs
Temp Pulse Resp BP Pulse Ox
97.7 F 100 19 158/97 98
06/06/24 11:02 06/06/24 12:00 06/06/24 12:00 06/06/24 12:00 06/06/24 12:00
Lab Data
06/06/24 11:06
06/06/24 11:06
Diagnostic Testing:
Physical Exam
-
HEENT: Normocephalic, Anicteric and Other (Large neck)
Cardiovascular: S1/S2, Regular Rhythm, Murmur (n), Rub (n), Peripheral Edema (n) and Calf Tenderness (n)
Respiratory: Wheeze (n), Rales (n), Rhonchi (n) and Non-Labored Respirations
GI: Soft, Distended and Tender
Neurology: Awake, Alert and No Motor Deficits
Skin: Other (No skin rash, extremities cool, pulses 1+)
General: Pain (Intermittent abdominal discomfort)
Assessment
-
68-year-old male with history of duodenal ulcer with gastritis requiring transfusion in 2020, presents with acute onset abdominal pain 06/03. He did not seek medical attention. Symptoms progressed, now presenting to [facility] emergency room. Found
to have perforated duodenal ulcer per imaging. Patient plan to go to the OR per surgery
Acute abdominal pain, 06/03
Perforated duodenal ulcer with free air per imaging
Leukocytosis
Polycythemia, hemoglobin 19.4
Elevated lactate
Hyperglycemia
Conditions present prior to admission
5.6 cm distal infrarenal abdominal aortic aneurysm
Hypertension
Diabetes
GERD/history of duodenal ulcer/gastritis
Hospitalized requiring transfusion 2020
History of hepatitis A
Family history of colon cancer
02-xipu-pjhi history of smoking, ongoing
Subpleural emphysema apical predominant per imaging
50 pound weight loss over the past year (per family)
Suspected sleep disordered breathing
Plan/recommendations
At this time, patient remains critically ill
Imaging confirms free air with perforated duodenal ulcer
Leukocytosis noted
History of diabetes noted
Moving forward
IV fluids
Empiric antibiotics
Plan for OR noted. Reviewed with surgery
PPI therapy
Son describes 50 pound weight loss over the last year
Ongoing smoking history
EKG without acute findings. Patient denies any prior cardiac issues
Reviewed with ED staff, primary service, surgery
Reviewed with patient and son at the bedside
We will follow
TCCT 31 min
--- NOTE | 2024-06-06 13:28 | W.SUR.PREOP ---
Pre-Operative Surgical Note
-
I have examined this patient prior to the performance of the scheduled procedure.
The patient's condition is unchanged from the time of the current History and
Physical and the patient is able to undergo the scheduled procedure.
--- NOTE | 2024-06-06 15:57 | W.IMMPOSTOP ---
Addendum entered and electronically signed by Jass Sanchez MD 06/06/24 16:14:
#[id number]
Original Note:
Surgical Immed Post Op Note
-
Primary Surgeon: Laura
Assisting Surgeon: Ashlyn Sidhu PGY 1
Pre-op Diagnosis: Perforated viscus, peritonitis, sepsis
Post-op Diagnosis: Duodenal perforated ulcer with peritonitis, sepsis
Procedure Performed: Exploratory laparotomy, primary repair perforated duodenal ulcer with omental pedicle flap.
Anesthesia Type: GETA +0.25% Marcaine
Specimen / Cultures: None/peritoneal fluid
Estimated Blood Loss: 20 mL
Complications: None immediate
Operative Findings: Large duodenal bulb ulcer with perforation, about 1.5 to 2 cm in diameter. Extensive contamination/leakage into retroperitoneal/extraperitoneal tissues overlying head of pancreas, transverse colon mesentery and Gerota's fascia.
Primary suture closure of duodenal ulcer with full-thickness simple interrupted 2-0 silk sutures along entire length. Omental pedicle flap to buttress repair also secured with 2-0 silk sutures. Extensive mobilization of hepatic flexure,
kocherization of duodenum, mobilization through transverse colon for irrigation and washout of perforation with numerous liters of sterile saline solution.
Drain: 19 Aaron drain placed into retroperitoneal/subhepatic/peripancreatic tissue space adjacent to repair of perforation
Plan: Extubated postoperatively however monitor in ICU for initial postoperative care
bolus PPI with subsequent drip
Zosyn -await intraoperative cultures
NG tube decompression to low intermittent wall suction 72 hours postop (okay to gently flush flush to maintain patency)
DAVID to bulb suction
Updated hospitalist and investigator claims postoperatively via [place] text
Family updated in surgical waiting area postoperatively and walked to the ICU waiting area
[2024-06-06 16:09] LABS: Glucose - Point of Care 203 mg/dl (70-99)
--- NOTE | 2024-06-06 16:30 | HPS.HSE ---
Family Physician
-
Family Physician: Eduardo Tellez
Chief Complaint
-
Abdominal pain
History of Present Illness
68-year-old male with past medical history of insulin-dependent diabetes mellitus, GERD, peptic ulcer, upper GI bleed, duodenitis came to the hospital with upper abdominal pain. CT scan in the ED was consistent with perforated duodenal ulcer with
free air. Patient was then taken to the OR by surgery. Patient had perforated duodenal ulcer with peritonitis. Patient was seen postop. Initially patient was intubated however was able to be extubated postoperatively. Patient at this time
denies any pain. Denies any nausea.
Medical History
Past Medical History
Past Medical History: Reports HTN, IDDM and Other (Duodenitis, peptic ulcer disease)
Past Surgical History: Reports Other (Cyst removal)
Social History
Tobacco: Smoker
Alcohol: Occasional
Family History
Family History: Not pertinent
Allergies / Home Medications
Allergies reflects when Allergies were last updated in [employer].
Home Medications with original date entered in [employer]
Allergy/Medication List:
Allergies
Allergy/AdvReac Type Severity Reaction Status Date / Time
No Known Allergies Allergy Unverified 01/10/21 15:59
Home Medications
multivitamin with folic acid 400 mcg tablet (Tab-A-Ebenezer) 1 tab PO DAILY Supplement 01/10/21
omega 5-pcm-kny-fish oil 300 mg-1,000 mg capsule (Fish Oil) 1 cap PO DAILY Supplement 01/10/21
insulin glargine 100 unit/mL (3 mL) subcutaneous pen (Basaglar KwikPen U-100 Insulin) 20 unit SC HS 06/06/24
lisinopril 10 mg tablet 10 mg PO DAILY 06/06/24
methylsulfonylmethane 500 mg capsule 500 mg PO DAILY 06/06/24
prednisolone acetate 1 % eye drops,suspension 1 drp LEFT EYE DAILY 06/06/24
Review of Systems
-
History Source: Patient
A 12 point ROS was completed and negative except as noted: Yes
Abdomen/GI: Reports Abdominal Pain
Physical Exam
Vital Signs
Vital Signs
Temp Pulse Resp BP Pulse Ox
97.7 F 99 22 159/88 97
06/06/24 11:02 06/06/24 13:15 06/06/24 13:00 06/06/24 13:00 06/06/24 13:15
Physical Exam
General: Well Nourished and No Apparent Distress
HEENT: Anicteric and Moist mucous membranes
Respiratory: Clear; No Wheezes
Cardiac: S1/S2 and Regular Rhythm
Breast: Deferred by me
GI: Soft and Other (OP incisions)
Genito-urinary: Deferred by me
Musculoskeletal: No Edema
Neuro: Awake and Alert
Psych: Calm
Laboratory Results
-
06/06/24 11:06
06/06/24 11:06
Laboratory Results
Lactic Acid 3.1 mmol/L (0.7-2.0) H 06/06/24 11:24
Total Bilirubin 1.2 mg/dl (0.2-1.3) 06/06/24 11:06
AST 38 U/L (17-59) 06/06/24 11:06
ALT 54 U/L (0-50) H 06/06/24 11:06
Alkaline Phosphatase 154 U/L (38-126) H 06/06/24 11:06
Lipase 107 U/L (23-300) 06/06/24 11:06
Data Reviewed
-
Lab Data: Labs Reviewed by me, Discussed with Nurse and Discussed with Patient
Impression/Plan
-
Severe sepsis secondary to perforated duodenal ulcer resulting peritonitis
Blood culture pending
Continue with Zosyn
Status post OR 06/06 with exploratory laparotomy, primary repair perforated duodenal ulcer
NPO per surgery, hold p.o. meds
Fluids
Continue with PPI
Monitor DAVID drain
Monitor in ICU
Pain control
Lactic acidosis
Trend
History of hypertension
Hold lisinopril
Hydralazine as needed
Diabetes mellitus
Since n.p.o., decreased glargine to 10 units, Accu-Cheks
Continue sliding scale
History of smoking
Cessation advised
Nicotine patch
Mild LFT elevation
Monitor
Fatty infiltration of liver
DVT prophylaxis
SCDs, pharmacological prophylaxis when okay with surgery
Full code
I spent a total of 78 minutes with the patient or on the floor. More than 50% of this time involved counseling and coordination of care.
[2024-06-06] MEDS: DILAUDID 0.25 MG IV ×2 (16:44→17:22)
[2024-06-06] MEDS: PROTONIX 100 IV (17:20)
[2024-06-06 18:04] LABS: Glucose - Point of Care 224 mg/dl (70-99)
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
[2024-06-06] MEDS: ZOSYN 50 IV ×2 (18:26→23:06)
[2024-06-06 19:08] LABS: Lactic Acid 1.9 mmol/L (0.7-2.0)
--- NOTE | 2024-06-06 20:00 | PTCARENOTE ---
rec'd patient. oriented x3. SR on monitor, afebrile. IVF and protonix gtt infusing. on 2L NC, denies SOB. remains NPO, NGT to LIS, DAVID drain to bulb sxn in RLQ. midline abdominal incision intact, no drainage noted. townsend in place. PRN dilaudid given
for abdominal pain, see MAR. pt splinting with pillow. family updated at bedside. call pride within reach, care ongoing.
[2024-06-06] MEDS: LANTUS 0.1 UNITS SC (23:07)
[2024-06-06 23:16] LABS: Glucose - Point of Care 253 mg/dl (70-99)
[2024-06-07] VITALS (31 sets, daily range): BP systolic 68–123; BP diastolic 47–82; BMI 34.4
--- NOTE | 2024-06-07 00:30 | PTCARENOTE ---
pt reassessed. CHG bath, townsend care done. PRN dilaudid for abdominal pain, see MAR. pt repositioning self. call pride within reach, care ongoing.
[2024-06-07] MEDS: PROTONIX 100 IV ×3 (00:34→20:19)
[2024-06-07] MEDS: DILAUDID 0.5 MG IV ×3 (03:13→12:59)
[2024-06-07 03:31] LABS: % Basophils 0.2 % (0-2); % Immature Granulocytes 0.3 % (0-0.5); % Lymphocytes 7.6 % (20.5-51.1); % Monocytes 11.7 % (1.7-9.3); % Neutrophils 80.2 % (42.2-75.2); Absolute Lymphocytes 0.8 10^3/uL (1.2-3.4); Absolute Monocytes 1.2 10^3/uL (0.1-0.6); Absolute Neutrophils 8.5 10^3/uL (1.4-6.5); Hematocrit 42.2 % (39.0-52.0); Hemoglobin 15.3 g/dL (13.0-18.0); Mean Corp Hgb Conc. 36.3 g/dL (33.0-37.0); Mean Corpuscular Volume 91.1 fL (80.0-94.0); Mean Platelet Volume 9.4 fL (7.4-10.4); Nucleated Red Blood Cells % 0 % (-); Platelet Count 187 10^3/uL (130-400); Red Blood Cell Count 4.63 10^6/uL (4.70-6.10); Red Cell Dist. Width 12.4 % (11.5-14.5); White Blood Cell Count 10.6 10^3/uL (4.8-10.8)
[2024-06-07 04:00] LABS: ALT (SGPT) 50 U/L (0-50); AST (SGOT) 41 U/L (17-59); Albumin 2.7 g/dl (3.5-5.0); Alkaline Phosphatase 77 U/L (38-126); Blood Urea Nitrogen 22 mg/dl (9-20); Calcium 7.2 mg/dl (8.4-10.2); Carbon Dioxide 19 mmol/L (22-30); Chloride 113 mmol/L (98-107); Estimated Creatinine Clearance 69 ml/min; Glucose 217 mg/dl (70-99); Potassium 4.5 mmol/L (3.5-5.1); Sodium 139 mmol/L (135-145); Total Bilirubin 1.2 mg/dl (0.2-1.3); Total Protein 5.1 g/dl (6.3-8.2); eGFR > 60.00
--- NOTE | 2024-06-07 04:30 | PTCARENOTE ---
AM labs sent. IVF and protonix gtt continue. midline incision remains C/D/I. call pride within reach, care ongoing.
[2024-06-07] MEDS: NSS 1000 IV ×5 (05:03→23:51)
[2024-06-07] MEDS: ZOSYN 50 IV ×3 (05:03→18:16)
[2024-06-07 05:56] LABS: Glucose - Point of Care 196 mg/dl (70-99)
--- NOTE | 2024-06-07 07:06 | W.PN.INTV ---
Today's Communication / Plan
Recommendations
Mechanical DVT prophylaxis
Pain control, incentive spirometry
NG tube, remains n.p.o.
Continue Zosyn therapy
Follow blood sugars
Assessment
-
68-year-old male with history of duodenal ulcer with gastritis requiring transfusion in 2020, presents with acute onset abdominal pain 06/03. He did not seek medical attention. Symptoms progressed, now presenting to [place] emergency room. Found
to have perforated duodenal ulcer per imaging. Patient plan to go to the OR per surgery
Acute abdominal pain, 06/03
Admitted 06/06
Perforated duodenal ulcer with free air per imaging
s/p exploratory laparotomy, primary repair of perforated duodenal ulcer with omental pedicle flap 06/06
Leukocytosis
Polycythemia, hemoglobin 19.4 on admission
Elevated lactate
Hyperglycemia
Conditions present prior to admission
5.6 cm distal infrarenal abdominal aortic aneurysm
Hypertension
Diabetes
GERD/history of duodenal ulcer/gastritis
Hospitalized requiring transfusion 2020
History of hepatitis A
Family history of colon cancer
20-bubp-vsoo history of smoking, ongoing
Subpleural emphysema apical predominant per imaging
50 pound weight loss over the past year (per family)
Suspected sleep disordered breathing
Plan/recommendations
At this time, patient remains critically ill but stable
Extubated postoperatively without difficulty. Pain is a major issue. Hemoglobin stable.
Postoperative EKG with poor R wave progression but no acute findings
Leukocytosis noted
History of diabetes noted
Moving forward
IV fluids
Empiric antibiotics, Zosyn continues
Reviewed postoperative report
PPI therapy will continue
Maintain n.p.o.
Son describes 50 pound weight loss over the last year
Ongoing smoking history
Postoperative EKG unchanged. Patient denies any prior cardiac issues
Patient denies any chest pain
Follow blood sugars. History of diabetes noted
Ranging from 196-253
Presently on postoperative fluids, normal saline
DVT prophylaxis: Mechanical prophylaxis for now. Start pharmacological prophylaxis when okay with surgery
GI prophylaxis: Remains on Protonix drip
Reviewed with primary service, critical care nursing
Reviewed with patient
Subjective Dataa
Subjective Data
Date of Service:
Date of Service: June 07, 2024
Subjective:
Patient is overall feeling well. Denies shortness of breath, chest pain. He does have some abdominal pain. NG tube remains in place. He appears to be in good spirits. Events overnight noted and reviewed
Objective Data
Data Reviewed
Vital Signs / I&O / Oxygen:
Vital Signs
Temp Pulse Resp BP Pulse Ox
98.4 F 88 20 100/64 96
06/07/24 03:06 06/07/24 06:00 06/07/24 06:00 06/07/24 06:00 06/07/24 06:00
Intake and Output
06/06/24 06/07/24 06/08/24
06:59 06:59 06:59
Intake Total 1760 / 1760
Output Total 1840 / 1840
Balance -80 / -80
SaO2 96
Nasal Cannula flow liters per 2
minute
Physical Exam
General: Comfortable
HEENT: Normocephalic and Anicteric
Cardiovascular: S1-S2, Regular Rhythm, Murmur (n), Rub (n) and Peripheral Edema (n)
Respiratory: Wheeze (n), Crackles (n), Rhonchi (n), Stridor (n) and Other (Mild splinting with abdominal pain)
GI: Soft, Non Distended, Tender and Other (DAVID drain)
Neurology: Awake, Alert and No Motor Deficits
Skin: Cyanosis (n), Jaundice (n) and Rash (n)
Labs/Micro/Reports
Lab Data
06/07/24 03:22
06/07/24 03:22
Microbiology
06/06/24 14:11 Abdomen Gram Stain - Preliminary
[2024-06-07] MEDS: DILAUDID 1 MG IV (08:06)
[2024-06-07] MEDS: NICODERM TRANSDERMAL 21 MG TRANSDERM (08:09)
[2024-06-07] MEDS: PRED FORTE 1% EYE DROPS 1 DROP LEFT EYE (08:10)
--- NOTE | 2024-06-07 08:14 | PTCARENOTE ---
the pt was received from previous hiv prevention specialist RN, the pt is resting in stretcher in the lowest position, side rails up x2, call pride within reach, HOB elevated, no s/s of distress, the pt is AAO, able to answer questions appropriately and able to
move all extremities, pupils 3 and brisk, the pt is afebrile, the pt is currently in NSR in the 70-80's, palpable pulses, b/l lower extremity trace edema, no c/o chest pain, b/l JEREMIAH's and SCD's in place, the pt is currently on RA Sp02 95%, RR 16,
Diminished lung sounds, no cough, no c/o SOB, the pt is currently NPO, Right Nare NGT in place to low intermittent suction, bowel sounds hypoactive in all four quadrants, no c/o N/V/D, the pt has an indwelling urinary catheter in place that is
draining clear yellow urine, the pt has a RLQ DAVID drain to bulb suction, midline incision with post operative dressing, no drainage noted, b/l lower extremities have a mottled appearance (the pt states that this is not new), PIV's have positive blood
return and are flushed, there is currently NSS running @ 150cc/hour, and Protonix gtt running at 8mg/hour, will continue to monitor the pt closely
[2024-06-07 09:33] LABS: Glycohemoglobin (HgbA1c) 7.5 % (4.0-5.6)
--- NOTE | 2024-06-07 11:36 | W.PN.GS2 ---
Today's Communication / Plan
-
`
Assessment / Plan
-
Assessment: 68-year-old male POD #1 status post ex lap primary repair perforated giant duodenal ulcer with omental pedicle flap to buttress primary closure; washout large contaminated retroperitoneal/pancreatic perforation site.
AF VSS
WBC 10.6, electrolytes stable.
DAVID with expected quantity and character of drainage
NG tube with bilious output
Operative cultures: Gram-positive cocci on Gram stain, no growth to date
Plan: Postoperative pain control
Maintain n.p.o., NG tube decompression for 72 hours postop (okay for swabs for comfort)
IV fluid hydration
Maintain DAVID
Zosyn
Start Lovenox for VTE prophylaxis
Pantoprazole drip for 72 hours postop then initiated twice daily IV dosing
Subjective Data
-
Date of Service: June 07, 2024
Patient seen and examined.
Sleeping in hospital bed in ICU but easily awoke.
Reports incisional pain and that he got behind and managing it.
Recently administered Dilaudid helping with pain
No nausea
Thirsty
Objective Data
-
Intake and Output
06/06/24 06/07/24/07/25
06:59 06:59 06:59
Intake Total 1760 / 1760 640 / 640
Output Total 1840 / 1840 450 / 450
Balance -80 / -80 190 / 190
Intake:
IV fluids (Total) 1620 / 1620 640 / 640
Normosal 500 / 500
Nss 1,000 ml @ 150 mls/hr IV . 1050 / 1050 600 / 600
[id number] [facility] Rx#:[id number]
Protonix 70 / 70 40 / 40
IV piggybacks 100 / 100
Amount instilled into GI Tube ( 40 / 40
Total)
[place] Sump 40 / 40
Output:
Drain Output (Total) 140 / 140
Right Abdomen Piotr-Tobias 140 / 140
Gastrointestinal tube output ( 100 / 100
Total)
[place] Sump 100 / 100
Urine, Bella 1600 / 1600 450 / 450
Vital Signs
Temp Pulse Resp BP Pulse Ox
98.4 F 89 17 100/66 95
06/07/24 08:03 06/07/24 10:00 06/07/24 10:00 06/07/24 10:00 06/07/24 10:00
Lab Results
06/07/24 03:22
06/07/24 03:22
Calcium 7.2 mg/dl (8.4-10.2) L D 06/07/24 03:22
Total Bilirubin 1.2 mg/dl (0.2-1.3) 06/07/24 03:22
AST 41 U/L (17-59) 06/07/24 03:22
ALT 50 U/L (0-50) 06/07/24 03:22
Alkaline Phosphatase 77 U/L (38-126) 06/07/24 03:22
Total Protein 5.1 g/dl (6.3-8.2) L D 06/07/24 03:22
Albumin 2.7 g/dl (3.5-5.0) L D 06/07/24 03:22
Physical Exam
-
NAD, AAOx3
ABD: Softly distended, incisional tenderness
NG tube with bilious contents
DAVID with dark, brackish fluid as anticipated. Does not appear to be bilious.
[2024-06-07 11:51] LABS: Glucose - Point of Care 177 mg/dl (70-99)
--- NOTE | 2024-06-07 12:02 | PTCARENOTE ---
this RN reached out to Dr. Sanchez and inquired about a new pain medication for the pt due to the pt asking for pain medication every half hour, per Dr. Sanchez an order for a PATIENT OMBUDSPERSON will be put in place
--- NOTE | 2024-06-07 12:07 | CM ---
CM following re: discharge planning.
Reviewed pt's chart, met with pt.
Pt is a 68 year old male, admitted with primary dx of POD #1 status post ex lap primary repair perforated giant duodenal ulcer with omental pedicle flap to buttress primary closure; washout large contaminated retroperitoneal/pancreatic perforation
site. Per Surgery, maintain n.p.o., NG tube decompression for 72 hours postop.
Pt reports he lives with spouse in a rancher style house, has 3 supportive children. 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 No DME, VN or SNF history.
PCP: Eduardo Tellez
Pharmacy: [facility]
D/C plan: uncertain at this time and will depend on pt's progress
[2024-06-07 12:50] LABS: Lipase 49 U/L (23-300)
--- NOTE | 2024-06-07 12:51 | W.PN.HOSP.TC ---
Today's Communication/Plan
-
Monitor vital signs and see plan
Start Lovenox for DVT prophylaxis
Continue with NG tube, pain control
Bowel rest
Monitor in ICU
Assessment / Plan
Assessment / Plan
General: Well Nourished and No Apparent Distress
HEENT: Anicteric and Moist mucous membranes
Respiratory: Clear; No Wheezes
Cardiac: S1/S2 and Regular Rhythm
GI: Soft and Other (OP incisions)
Musculoskeletal: No Edema
Neuro: Awake and Alert
Psych: Calm
Severe sepsis secondary to perforated duodenal ulcer resulting peritonitis
Blood culture NGTD
Continue with Zosyn
Wound culture with gram-positive cocci
Status post OR 06/06 with exploratory laparotomy, primary repair perforated duodenal ulcer
NPO per surgery, hold p.o. meds
Fluids
Continue with PPI
Monitor DAVID drain
Monitor in ICU
Pain control
cw NGT per surgery; awaiting bowel return
Lactic acidosis
resolved
History of hypertension
Hold lisinopril
Hydralazine as needed
Diabetes mellitus
Since n.p.o., cw glargine at lower dose, Accu-Cheks
Continue sliding scale
A1c 7.5
History of smoking
Cessation advised
Nicotine patch
Mild LFT elevation
Monitor
Fatty infiltration of liver
DVT prophylaxis
SCDs, lovenox as ok'ed by surgery
Full code
I spent a total of 52 minutes with the patient or on the floor. More than 50% of this time involved counseling and coordination of care.
Anticipated Discharge: > 48 hours
Subjective/Interval History
-
Date of Service: June 07, 2024
has pain
Objective Data
-
Labs:
Laboratory Results
06/07/24
03:22
WBC 10.6
Hgb 15.3 D
Hct 42.2
Plt Count 187 D
Sodium 139
Potassium 4.5
Chloride 113 H
Carbon Dioxide 19 L
BUN 22 H
Creatinine 1.1
Glucose 217 H
Calcium 7.2 L D
Total Bilirubin 1.2
AST 41
ALT 50
Alkaline Phosphatase 77
Vital Signs:
Vital Signs
Temp Pulse Resp BP Pulse Ox
98.5 F 88 15 105/67 94
06/07/24 12:37 06/07/24 12:37 06/07/24 12:37 06/07/24 12:37 06/07/24 12:37
I&O
06/06/24 06/07/24 06/08/24
06:59 06:59 06:59
Intake Total 1760 / 1760 960 / 960
Output Total 1840 / 1840 600 / 600
Balance -80 / -80 360 / 360
--- NOTE | 2024-06-07 13:08 | PTCARENOTE ---
the pt is resting in stretcher in the lowest position, side rails up x2, call pride within reach, HOB elevated, VS WNL, NSR in the 80's, RA Sp02 98%, no c/o chest pain, no c/o SOB, this RN is awaiting for Dilaudid PROTECTION ANALYST gtt per Dr. Sanchez's orders to
control midline incisional pain, the pts daughter in law and son are currently at the pts bedside, no change from previous assessment, will continue to monitor the pt closely
[2024-06-07] MEDS: DILAUDID PCA 30 IV (13:40)
--- NOTE | 2024-06-07 13:51 | PTCARENOTE ---
LINING SEWER pump set up for the pt, this RN explained the LINING SEWER pump to the pt and the pts and sister, son and daughter in law and explained to them that the only person who should be pushing the button on the LINING SEWER pump is the pt, will continue to monitor
the pt closely
--- NOTE | 2024-06-07 16:55 | PTCARENOTE ---
the pt was assisted x2 by this RN and ICU PCT from lying position to sitting position on the side of the bed, and then the pt was assisted x2 to a standing position and to the chair, the pt is resting in chair, VS WNL, no c/o chest pain, no c/o SOB,
the pt was given pillow to splint abdominal incision while transferring, the pts SUPERVISING APPRAISER pump button is resting in his right hand, no change from previous assessment, the pts son is currently still at the pts bedside, will continue to monitor the pt
closely
--- NOTE | 2024-06-07 17:05 | PTCARENOTE ---
this RN entered the pts room to check on the pt and noticed that the pts son reported blood tinged sputum coming from the pts NGT, the pt also has c/o nauseas and belching, this RN reached out to Dr. Gan, awaiting a response, no other complaints
offered, the pt is currently still resting in chair
[2024-06-07] MEDS: ZOFRAN 4 MG IV (17:11)
--- NOTE | 2024-06-07 17:12 | PTCARENOTE ---
this RN spoke to Dr. Sanchez and per the provider he is not concerned about blood tinged sputum from NGT, per the provider no changes, Zofran IV was administered, the pt is asking to get back in bed, this RN will assist the pt with that
--- NOTE | 2024-06-07 17:27 | PTCARENOTE ---
this RN assisted the pt back into bed with second ICU nurse Leroy, the pt is now resting in stretcher in the lowest position, side rails up x2, call pride within reach, HOB elevated, BOOM SUPERVISOR pump button resting in the pts left hand, VS WNL, DAVID drained
emptied with total of 60cc, the pts son is heading home, will continue to monitor the pt closely
[2024-06-07 17:40] LABS: Glucose - Point of Care 137 mg/dl (70-99)
[2024-06-07] MEDS: LOVENOX 40 MG SC (18:16)
--- NOTE | 2024-06-07 20:30 | PTCARENOTE ---
rec'd patient. assessment as documented. IVF/protonix gtt/dilaudid DE ICER infusing. pt re educated on use of DE ICER for pain mgmt. ice pack and pillow for splinting provided. oriented x3. SR/ST on monitor. SCDs and TEDs in place. placed on 2L NC, c/o SOB
with pain. remains NPO, swabs provided for dry mouth. NGT and RLQ DAVID in place. townsend intact. pt repositioning self. call pride within reach, care ongoing.
[2024-06-07] MEDS: LANTUS 0.12 UNITS SC (21:37)
[2024-06-07 21:38] LABS: Glucose - Point of Care 189 mg/dl (70-99)
[2024-06-07] MEDS: NSS 250 IV (23:21)
[2024-06-07 23:30] LABS: Hemoglobin 10.3 g/dL (13.0-18.0)
--- NOTE | 2024-06-07 23:30 | PTCARENOTE ---
Addendum entered by Yolande Bennett RN 06/08/24 01:19:
correction - ICU INSURANCE VERIFICATION CLERK made surgery aware, not GI.
pt taken down to CT, awaiting results.
Addendum entered by Yolande Bennett RN 06/07/24 23:45:
NGT with brown/maroon drainage, 150ml out since 1899. ICU INSURANCE VERIFICATION CLERK made GI aware. awaiting orders.
Addendum entered by Yolande Bennett RN 06/07/24 23:36:
Hgb dropped 15.3 to 10.3, ICU INSURANCE VERIFICATION CLERK aware.
Original Note:
2315- ICU INSURANCE VERIFICATION CLERK notified of pt c/o 'clamminess', pt visibly diaphoretic. SBP 70-80s, MAP 58-61. temp 97.8. SR/ST on monitor. on 4L NC. also c/o abdominal pain 05/11, reinforced education on dilaudid AIRBRUSH PAINTER. 250ml NS bolus ordered and hung. H&H sent,
awaiting results. care ongoing.
--- NOTE | 2024-06-07 23:53 | W.PN.UPDATE ---
Update Note
Progress Note Update
8932: Notify by bedside nurse that BP running soft (72/50), did a stat HH (10.3 from 15.3) and gave 250cc fluid bolus, IV fluids cont. at 150ml/hr, NGT putting out dark lesley secretions. Afebrile, HR 95 to 105 bpm. Urine output around 50cc/hr. DAVID
output stable. Dr Sanchez updated advised to give one liter of fluid bolus.
23:55 During IV bolus, PIV line infiltrated.
00:20 Increased in NGT tube output over 250cc dark lesley.. Stat a/p angio ordered. Findings: CT show blood products in the Duodenal, no active bleed noted.
[2024-06-08] VITALS (48 sets, daily range): BP systolic 74–147; BP diastolic 24–85; BMI 34.8
[2024-06-08 00:27] LABS: INR 1.88; PT 21.8 Sec (11.4-14.6)
[2024-06-08 00:28] LABS: APTT 42.4 Sec (23.4-35.0)
[2024-06-08 00:34] LABS: Hematocrit 25.9 % (39.0-52.0); Mean Corp Hgb Conc. 34.7 g/dL (33.0-37.0); Mean Corpuscular Hgb 32.8 pg (27.0-31.0); Mean Corpuscular Volume 94.5 fL (80.0-94.0); Mean Platelet Volume 10.1 fL (7.4-10.4); Platelet Count 191 10^3/uL (130-400); Red Blood Cell Count 2.74 10^6/uL (4.70-6.10); Red Cell Dist. Width 12.7 % (11.5-14.5); White Blood Cell Count 10.3 10^3/uL (4.8-10.8)
[2024-06-08] MEDS: ZOSYN 50 IV ×5 (01:09→23:22)
--- NOTE | 2024-06-08 02:10 | PTCARENOTE ---
Addendum entered by Yolande Bennett RN 06/08/24 02:54:
repeat Hgb 9.2, no new orders.
Original Note:
pt continues with soft BPs, SBP in 80s, ICU RESEARCH TEST ENGINE EVALUATOR aware, repeat H&H sent
[2024-06-08 02:11] LABS: Hematocrit 25.6 % (39.0-52.0); Hemoglobin 9.2 g/dL (13.0-18.0)
[2024-06-08 02:22] LABS: Ionized Calcium 1.02 mMOL/L (1.15-1.33)
[2024-06-08 02:26] LABS: Lactic Acid 1.2 mmol/L (0.7-2.0)
[2024-06-08 02:34] LABS: ALT (SGPT) 24 U/L (0-50); AST (SGOT) 20 U/L (17-59); Albumin 1.8 g/dl (3.5-5.0); Alkaline Phosphatase 50 U/L (38-126); Blood Urea Nitrogen 24 mg/dl (9-20); Calcium 6.5 mg/dl (8.4-10.2); Carbon Dioxide 21 mmol/L (22-30); Chloride 117 mmol/L (98-107); Estimated Creatinine Clearance 57 ml/min; Glucose 158 mg/dl (70-99); Potassium 4.2 mmol/L (3.5-5.1); Sodium 139 mmol/L (135-145); Total Bilirubin 1.2 mg/dl (0.2-1.3); Total Protein 3.7 g/dl (6.3-8.2); eGFR 59.84
[2024-06-08] MEDS: CALCIUM CHLORIDE 10% SYRINGE 60 MG IV (02:51)
[2024-06-08 05:27] LABS: % Basophils 0.5 % (0-2); % Eosinophils 0.3 % (0-6); % Immature Granulocytes 0.5 % (0-0.5); % Lymphocytes 12.2 % (20.5-51.1); % Monocytes 11.8 % (1.7-9.3); % Neutrophils 74.7 % (42.2-75.2); Absolute Basophils 0.1 10^3/uL (0-0.2); Absolute Immature Granulocytes 0.1 10^3/uL (0-0.05); Absolute Lymphocytes 1.1 10^3/uL (1.2-3.4); Absolute Monocytes 1.1 10^3/uL (0.1-0.6); Absolute Neutrophils 6.9 10^3/uL (1.4-6.5); Hematocrit 28.4 % (39.0-52.0); Hemoglobin 9.7 g/dL (13.0-18.0); Mean Corp Hgb Conc. 34.2 g/dL (33.0-37.0); Mean Corpuscular Hgb 32.3 pg (27.0-31.0); Mean Corpuscular Volume 94.7 fL (80.0-94.0); Mean Platelet Volume 9.8 fL (7.4-10.4); Nucleated Red Blood Cells % 0 % (-); Platelet Count 188 10^3/uL (130-400); Red Cell Dist. Width 12.6 % (11.5-14.5); White Blood Cell Count 9.2 10^3/uL (4.8-10.8)
--- NOTE | 2024-06-08 05:44 | PTCARENOTE ---
AM labs sent. AM Hgb 9.7. ICU MILL MANAGER aware, SBP remains 80/90s, MAP <65, no new orders. remains SR on monitor, on 4L NC. call pride within reach, reinforced use of SUPERVISOR MODERN LANGUAGES pump for pain mgmt. care ongoing.
[2024-06-08] MEDS: PROTONIX 100 IV ×2 (06:45→17:51)
--- NOTE | 2024-06-08 07:36 | W.PN.INTV ---
Today's Communication / Plan
Recommendations
Follow hemoglobin, transfuse as needed
Continue IV fluids
Replete calcium
PICC line, TPN per surgery
ID evaluation given possible need for broadening coverage, antifungal therapy
Continue Protonix drip
Nebulized therapy
Assessment
-
68-year-old male with history of duodenal ulcer with gastritis requiring transfusion in 2020, presents with acute onset abdominal pain 06/03. He did not seek medical attention. Symptoms progressed, now presenting to [facility] emergency room. Found
to have perforated duodenal ulcer per imaging. Patient plan to go to the OR per surgery
Acute abdominal pain, 06/03
Admitted 06/06
Perforated duodenal ulcer with free air per imaging
s/p exploratory laparotomy, primary repair of perforated duodenal ulcer with omental pedicle flap 06/06
Increased burgundy output overnight 06/07-06/08
Marginal blood pressure
Anemia, secondary to upper GI bleed
Leukocytosis
Polycythemia, hemoglobin 19.4 on admission
Elevated lactate
Hyperglycemia
Conditions present prior to admission
5.6 cm distal infrarenal abdominal aortic aneurysm
Hypertension
Diabetes
GERD/history of duodenal ulcer/gastritis
Hospitalized requiring transfusion 2020
History of hepatitis A
Family history of colon cancer
[id number] history of smoking, ongoing
Subpleural emphysema apical predominant per imaging
50 pound weight loss over the past year (per family)
Suspected sleep disordered breathing
Plan/recommendations
At this time, patient remains critically ill. Marginal blood pressure noted, increased bloody output noted via NG tube overnight
Repeat abdominal imaging did not reveal any evidence of active bleeding. Postsurgical changes noted
Postoperative EKG with poor R wave progression but no acute findings
Leukocytosis noted
History of diabetes noted
Moving forward
IV fluids
Empiric antibiotics, Zosyn continues
Given abdominal viscus perforation, will have infectious disease comment on expanding antibiotic coverage. May require antifungal therapy
PPI therapy will continue
Maintain n.p.o.
NG tube in place
Hypertension noted. Likely underlying sepsis
Repeat hemoglobin later p.m. Would transfuse with any drop although may be dilutional
May require pressors
Son describes 50 pound weight loss over the last year
Ongoing smoking history
Postoperative EKG unchanged. Patient denies any prior cardiac issues
Patient denies any chest pain
Follow blood sugars. History of diabetes noted
Presently on postoperative fluids, normal saline
TPN to be started per discussion with surgery. PICC line will be placed
Once started, will discontinue IV fluids
Diabetic nurse practitioner will be consulted
Incentive spirometry
Wheezing on exam noted. Patient with ongoing smoking
Will start nebulized therapy
Out of bed to chair as able
DVT prophylaxis: Mechanical prophylaxis and pharmacological prophylaxis continue
GI prophylaxis: Remains on Protonix drip
Reviewed with primary service, critical care nursing, nursing, pharmacy, respiratory care, infectious disease
Reviewed with patient
TCCT 35 min
Subjective Dataa
Subjective Data
Date of Service:
Date of Service: June 08, 2024
Subjective:
Patient continues to remain critically ill, marginal blood pressure noted. Denies shortness of breath, does appear to be uncomfortable with NG tube. Dilaudid ELECTROPHYSIOLOGY NURSE PRACTITIONER in place. Patient had episode of burgundy liquid, 800 cc removed from NG tube
overnight.
Objective Data
Data Reviewed
Vital Signs / I&O / Oxygen:
Vital Signs
Temp Pulse Resp BP Pulse Ox
98.3 F 85 21 86/53 97
06/08/24 04:02 06/08/24 06:34 06/08/24 06:34 06/08/24 06:34 06/08/24 06:34
Intake and Output
06/07/24 06/08/24 06/09/24
06:59 06:59 06:59
Intake Total 1760 / 1760 4890 / 4890
Output Total 1840 / 1840 3260 / 3260
Balance -80 / -80 1630 / 1630
SaO2 97
Nasal Cannula flow liters per 4
minute
Physical Exam
General: Comfortable
HEENT: Normocephalic and Anicteric
Cardiovascular: S1-S2, Regular Rhythm, Murmur (n), Rub (n) and Peripheral Edema (n)
Respiratory: Wheeze (Mild scattered), Crackles (n), Rhonchi (n), Stridor (n) and Other (Mild splinting with abdominal pain)
GI: Soft, Non Distended, Tender, NG Tube and Other (DAVID drain, abdominal dressing in place)
Neurology: Awake, Alert and No Motor Deficits
Skin: Cyanosis (n), Jaundice (n) and Rash (n)
Labs/Micro/Reports
Lab Data
06/08/24 05:21
06/08/24 02:04
Laboratory Results
06/08/24
00:12
PT 21.8 H
INR 1.88
APTT 42.4 H
Microbiology
06/06/24 11:50 Blood/Venous Blood Culture - Preliminary
No Growth in 24 hours- Final report to follow
06/06/24 11:50 Blood/Venous Blood Culture - Preliminary
No Growth in 24 hours- Final report to follow
06/06/24 14:11 Peritoneal Fluid Anaerobic Culture - Preliminary
Culture pending. Anaerobic cultures are examined after 3
days incubation. Additional information to follow.
06/06/24 14:11 Abdomen Wound Culture - Preliminary
No growth
06/06/24 14:11 Abdomen Gram Stain - Preliminary
[2024-06-08 07:46] LABS: Glucose - Point of Care 199 mg/dl (70-99)
[2024-06-08] MEDS: NSS 1000 IV ×3 (07:52→21:04)
[2024-06-08] MEDS: NICODERM TRANSDERMAL 21 MG TRANSDERM (07:53)
[2024-06-08] MEDS: PRED FORTE 1% EYE DROPS 1 DROP LEFT EYE (07:55)
[2024-06-08] MEDS: OFIRMEV 100 IV ×2 (07:56→16:15)
[2024-06-08] MEDS: LR 1000 IV (08:20)
[2024-06-08] MEDS: NOVOLOG FLEXPEN-LOW RESISTANCE 1 UNITS SC ×2 (09:16→17:52)
--- NOTE | 2024-06-08 09:17 | W.PN.HOSP.TC ---
Today's Communication/Plan
-
Continue IV fluids
Increase Lantus
Add incentive spirometry
Continue antibiotics
Wait for return of bowel function
TPN being started
Will need increased dose of insulin
Assessment / Plan
Assessment / Plan
CVS: S1-S2 normal
Chest: Decreased breath sounds bilaterally
Abdomen: Surgical wound, DAVID drain, very diminished bowel sounds
Extremities: No edema
RADAR AIR TRAFFIC CONTROLLER: Non focal exam
Repeat CT 06/08/2024-no contrast extravasation or active bleeding. Small amount of hyperattenuating fluid in the duodenum. Mild postop ileus. Small amount of free intraperitoneal air likely postoperative. Small bilateral pleural effusions with
bibasilar subsegmental atelectasis. Abdominal arctic aneurysm 5.7 cm. Multifocal arterial stenosis
#Severe sepsis secondary to perforated duodenal ulcer resulting peritonitis
Status post OR 06/06 with exploratory laparotomy, primary repair perforated duodenal ulcer with omental pedicle flap 06/06
H/O GERD/history of duodenal ulcer/gastritis
Blood culture NGTD
Repeat CT reviewed by me
Continue with Zosyn until cultures are back
OR with gram-positive cocci
NPO per surgery, hold p.o. meds
IV Fluids
Continue with PPI
Monitor DAVID drain
Monitor in ICU
Pain control
cw NGT per surgery; awaiting bowel return
ID consult noted
TPN being initiated
#Lactic acidosis
resolved
#Anemia- Due to acute post op blood loss-Check Iron studies
Polycythemia with hemoglobin 19.4 on admission
#History of hypertension
Hold lisinopril
Hydralazine as needed
#Diabetes mellitus
Since n.p.o., cw glargine at lower dose, Accu-Cheks
Increase Lantus to 15 U
Continue sliding scale
A1c 7.5
If patient is getting TPN we may need to increase the dose of Lantus again.
#History of smoking
Cessation advised
Nicotine patch
#Hypocalcemia-Check Vit D and replace calcium
#Abdominal aortic aneurysm, measuring 5.7 cm in greatest orthogonal dimension.
#PAD-Multifocal arterial stenoses within both common iliac, external iliac, and common femoral arteries.
HO when stable
#Mild LFT elevation-Monitor
#50 pound weight loss over the past year -Needs OP work up
#Hepatic Steatosis
#Hypoalbuminemia
#Diverticulosis
#History of hepatitis A
#2.3 mm noncalcified nodule in the anterolateral inferior right upper lobe-OP follow up
#Nutrition- TPN being started
#DVT prophylaxis-Lovenox
#Full code
D/W ICU team
Still critically ill
Time spent over 50 min
Anticipated Discharge: > 48 hours
Subjective/Interval History
-
Date of Service: June 08, 2024
Objective Data
-
Labs:
Laboratory Results
06/07/24 06/08/24 06/08/24
23:25 00:12 02:04
WBC 10.3
Hgb 10.3 L D 9.0 L 9.2 L
Hct 29.0 L 25.9 L 25.6 L
Plt Count 191
PT 21.8 H
INR 1.88
APTT 42.4 H
Sodium 139
Potassium 4.2
Chloride 117 H
Carbon Dioxide 21 L
BUN 24 H
Creatinine 1.3
Glucose 158 H
Calcium 6.5 L*
Total Bilirubin 1.2
AST 20
ALT 24
Alkaline Phosphatase 50
06/08/24 06/08/24
05:21 11:00
WBC 9.2
Hgb 9.7 L Pending
Hct 28.4 L
Plt Count 188
PT
INR
APTT
Sodium
Potassium
Chloride
Carbon Dioxide
BUN
Creatinine
Glucose
Calcium
Total Bilirubin
AST
ALT
Alkaline Phosphatase
Vital Signs:
Vital Signs
Temp Pulse Resp BP Pulse Ox
98.5 F 85 16 86/53 97
06/08/24 07:53 06/08/24 06:34 06/08/24 08:00 06/08/24 06:34 06/08/24 06:34
I&O
06/07/24 06/08/24 06/09/24
06:59 06:59 06:59
Intake Total 1760 / 1760 4890 / 4890 1610 / 1610
Output Total 1840 / 1840 3260 / 3260 155 / 155
Balance -80 / -80 1630 / 1630 1455 / 1455
--- NOTE | 2024-06-08 09:21 | W.PN.GS2 ---
Today's Communication / Plan
-
c/w NGT
Initiate TPN
Assessment / Plan
-
Assessment: 68-year-old male POD #3 status post ex lap primary repair perforated giant duodenal ulcer with omental pedicle flap to buttress primary closure; washout large contaminated retroperitoneal/pancreatic perforation site.
Afebrile. Hypotension noted: receiving fluid bolus at time of evaluation
No leukocytosis, electrolytes stable.
Acute anemia present, drop yesterday pm but now stabilized; hemodilution contributing as patient was dehydrated on presentation and now s/p volume resuscitation. Equilibrating post op. Minimal old blood from NGT.
CT imaging with blood products in duodenum, otherwise no acute concerning findings. No abscess noted. AAA stable.
DAVID with expected quantity and character of drainage
NG tube with bilious/blood tinged output
Operative cultures: Gram-positive cocci on Gram stain, no growth to date
Plan: Postoperative pain control with PERFORMANCE SPECIALIST/Ofirmev
Maintain n.p.o., continue NG tube decompression (okay for swabs for comfort), await bowel recovery
IV fluid hydration
Maintain DAVID
Continue Zosyn
Start Lovenox for VTE prophylaxis
Will continue Pantoprazole drip, will change to twice daily IV dosing once h/h stable post op
Anticipate prolonged NPO. Would benefit from TPN, will consult scrum project manager for recommendations
check nutritional labs
trend h/h, transfuse as needed. Check CTA if rapid decline in h/h
VTE ppx with SCD's, hold chemical ppx given GIB
Subjective Data
-
Date of Service: June 08, 2024
Patient seen and examined at bedside with Dr. Kelley. Denies n/v. Pain persists but no worse, better control with PERFORMANCE SPECIALIST. C/O dry mouth. Missing his morning coffee.
Objective Data
-
Intake and Output
06/07/24 06/08/24 06/09/24
06:59 06:59 06:59
Intake Total 1760 / 1760 4890 / 4890 1610 / 1610
Output Total 1840 / 1840 3260 / 3260 155 / 155
Balance -80 / -80 1630 / 1630 1455 / 1455
Intake:
IV fluids (Total) 1620 / 1620 3840 / 3840 1480 / 1480
LR 1000 / 1000
Normosal 500 / 500
Nss 1,000 ml @ 150 mls/hr IV . 1050 / 1050 3600 / 3600 450 / 450
[id number] [facility] Rx#:[id number]
Protonix 70 / 70 240 / 240 30 / 30
IV piggybacks 100 / 100 1050 / 1050 100 / 100
Amount instilled into GI Tube ( 40 / 40 30 / 30
Total)
[place] 40 / 40 30 / 30
Output:
Drain Output (Total) 140 / 140 160 / 160 30 / 30
Right Abdomen Piotr-Tobias 140 / 140 160 / 160 30 / 30
Gastrointestinal tube output ( 100 / 100 950 / 950
Total)
[place] 100 / 100 950 / 950
Urine, Bella 1600 / 1600 2150 / 2150 125 / 125
Vital Signs
Temp Pulse Resp BP Pulse Ox
98.5 F 85 16 86/53 97
06/08/24 07:53 06/08/24 06:34 06/08/24 08:00 06/08/24 06:34 06/08/24 06:34
Lab Results
06/08/24 02:04
Calcium 6.5 mg/dl (8.4-10.2) L* 06/08/24 02:04
Total Bilirubin 1.2 mg/dl (0.2-1.3) 06/08/24 02:04
AST 20 U/L (17-59) 06/08/24 02:04
ALT 24 U/L (0-50) 06/08/24 02:04
Alkaline Phosphatase 50 U/L (38-126) 06/08/24 02:04
Total Protein 3.7 g/dl (6.3-8.2) L D 06/08/24 02:04
Albumin 1.8 g/dl (3.5-5.0) L 06/08/24 02:04
Physical Exam
-
NAD, AAOx3
ABD: Softly distended, generalized tenderness
NG tube with bilious, blood tinged contents
Incision with clean staple line, no erythema.
DAVID with SSF, nonbilious.
[2024-06-08 09:26] LABS: Glucose - Point of Care 157 mg/dl (70-99)
--- NOTE | 2024-06-08 09:48 | CON.ID ---
Consultation
-
Date/Time Consultation Requested: June 08, [id number]
Date/Time Consultation Performed: June 08, 2024 0950
Requesting Provider: Dr. Nela Sims
Performing Provider: Dr. Mary Batista
Reason for Consultation: perforated viscus
Chief Complaint / Past History
Chief Complaint
Abdominal pain
History of Present Illness
60-year-old male with history diabetes mellitus, upper GI bleed in 2020 from duodenal ulcer who presented to the hospital on June 06 complaining of severe abdominal pain. Initially the pain was located on the upper abdomen for few days then and
traveled to the rest of the abdomen. No fevers. No diarrhea. In the ER CAT scan showed perforated duodenum. He was taken to the OR emergently s/p exploratory laparotomy, primary repair perforated giant duodenal ulcer with omental pedicle flap;
peritonitis noted. Postop he had hypotension. Repeat CAT scan showed no contrast extravasation. Today he feels very tired. Pain is controlled.
Past History
Additional Past Medical History:
Duodenal ulcer
DM
HTN
GERD
Abdominal aortic aneurysm 5.7 cm
Allergy History:
No Known Allergies Allergy (Unverified 01/10/21 15:59)
Medications Reviewed: Yes
Current Antibiotics:
Zosyn d3
Social History
Tobacco: Smoker
Alcohol: Occasional
Drug: None
Family History
Family History: Not Pertinent
Review of Systems
Vital Signs
Temp Pulse Resp BP Pulse Ox
98.5 F 85 16 86/53 97
06/08/24 07:53 06/08/24 06:34 06/08/24 08:00 06/08/24 06:34 06/08/24 06:34
Physical Exam
Physical Exam
Constitutional: Acutely Ill
Eyes: No Conjunctival Hemorrhage and Sclera Anicteric
Cardiovascular: Regular Rate and S1/S2
Pulmonary: Clear (anteriorly)
Gastrointestinal: Soft, Decreased Bowel Sounds and Other (DAVID drain with small amt dark blood. )
Genito-Urinary: Bella and Clear Urine
Extremities: Negative Edema
Lab / Diagnostic Study Results
06/08/24 02:04
Abs Immat Gran (auto) 0.1 10^3/uL (0-0.05) H 06/08/24 05:21
Absolute Neuts (auto) 6.9 10^3/uL (1.4-6.5) H 06/08/24 05:21
Absolute Lymphs (auto) 1.1 10^3/uL (1.2-3.4) L 06/08/24 05:21
Absolute Monos (auto) 1.1 10^3/uL (0.1-0.6) H 06/08/24 05:21
Absolute Basos (auto) 0.1 10^3/uL (0-0.2) 06/08/24 05:21
Immature Gran % 0.5 % (0-0.5) 06/08/24 05:21
Neutrophils % 74.7 % (42.2-75.2) 06/08/24 05:21
Lymphocytes % 12.2 % (20.5-51.1) L 06/08/24 05:21
Monocytes % 11.8 % (1.7-9.3) H 06/08/24 05:21
Eosinophils % 0.3 % (0-6) 06/08/24 05:21
Basophils % 0.5 % (0-2) 06/08/24 05:21
PT 21.8 Sec (11.4-14.6) H 06/08/24 00:12
INR 1.88 06/08/24 00:12
Lactic Acid 1.2 mmol/L (0.7-2.0) 06/08/24 02:04
Microbiology Results
Micro:
06/06/24 14:11 Wound Culture - Preliminary
Abdomen No growth
Gram Stain - Preliminary
06/06/24 11:50 Blood Culture - Preliminary
Blood/Venous No Growth in 24 hours- Final report to follow
06/06/24 11:50 Blood Culture - Preliminary
Blood/Venous No Growth in 24 hours- Final report to follow
06/06/24 14:11 Anaerobic Culture - Preliminary
Peritoneal Fluid Culture pending. Anaerobic cultures are examined after 3
days incubation. Additional information to follow.
06/08/24 CT a/p: 1. No foci of contrast extravasation to suggest active gastrointestinal hemorrhage at the time of imaging.
2.Small amount of hyperattenuating fluid within the duodenum, which may represent blood products.
3. Suggestion of mild postoperative ileus.
4. Small amount of free intraperitoneal air, likely postoperative.
5. Small bilateral pleural effusions, with likely bibasilar subsegmental atelectasis.
6. Abdominal aortic aneurysm, measuring 5.7 cm in greatest orthogonal dimension.
7. Multifocal arterial stenoses within both common iliac, external iliac, and common femoral arteries. If there is clinical suspicion of significant peripheral arterial disease, consider ankle-brachial indices.
06/06/24 CTA C/A/P: Diffuse duodenitis. Duodenal perforation. No focal collection or abscess. Discussed with Dr. Rodgers at 11:48 AM on 06/06/2024, and reviewed with Dr. Sanchez. Mid to distal infrarenal abdominal aortic fusiform aneurysm without
secondary complications. No evidence to suggest impending rupture. No dissection.
Assessment / Plan
# Perforated fiant duodenal ulcer with peritonitis
- 06/06 s/p ex-lap, primary repair, perforated duodenal ulcer with omental pedicle flap.
- OR gram stain: moderate GPC, cx neg to date; Anerobic cx pending
- Continue Zosyn (d3)
# Post-op ileus
# Tobacco use disorder
# DM
# AAA
--- NOTE | 2024-06-08 10:07 | PTCARENOTE ---
after repositioning pt he had a Low BP, spoke to cocoa milling machine operator and LR bolus was given. BP improved post LR bolus.
[2024-06-08 10:28] LABS: Iron < 20 ug/dl (49-181); Total Iron Binding Capacity 159 ug/dl (261-462)
[2024-06-08 10:39] LABS: Prealbumin (Transthyretin) 6.5 mg/dl (17.6-36.0)
[2024-06-08 10:40] LABS: Magnesium 1.9 mg/dl (1.6-2.3); Phosphorus 3.4 mg/dl (2.5-4.5); Triglycerides 116 mg/dl (10-149)
[2024-06-08 11:24] LABS: Vitamin B12 861 pg/ml (239-931)
[2024-06-08] MEDS: NOVOLOG FLEXPEN-LOW RESISTANCE SC (11:56)
[2024-06-08 11:59] LABS: Glucose - Point of Care 135 mg/dl (70-99)
--- NOTE | 2024-06-08 12:19 | PTCARENOTE ---
systems reviewed. Right PICC placement confirmed. Pain managed on regimen. called given update via telephone. IS provided pt encouraged to use hourly. NGT irrigated per order and output decreased. Otherwise see chart.
--- NOTE | 2024-06-08 15:32 | CM ---
CM following re: discharge planning.
Reviewed pt's chart, met with pt.
Pt is a POD #3 status post ex lap primary repair perforated giant duodenal ulcer with omental pedicle flap to buttress primary closure. Per Rounds meeting, Maintain n.p.o., continue NG tube decompression, maintain DAVID, continue supportive care.
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
D/C plan: home with anticipated no needs. Family to transport at discharge.
CM will follow with discharge plan updates as hospitalization progresses
--- NOTE | 2024-06-08 16:30 | PTCARENOTE ---
systems reviewed, PRBC completed, no changes
[2024-06-08] MEDS: DUONEB 3 ML INH ×2 (17:02→20:37)
[2024-06-08 17:36] LABS: Glucose - Point of Care 155 mg/dl (70-99)
[2024-06-08] MEDS: LOVENOX 40 MG SC (17:49)
--- NOTE | 2024-06-08 18:32 | PTCARENOTE ---
pt assisted out of bed, assistance mostly needed for lines tolerated getting OOB to chair well.
--- NOTE | 2024-06-08 21:00 | PTCARENOTE ---
rec'd patient. assessment as documented. pt assisted out of chair back to bed with x2 nurse assist, used urinal at bedside. oriented x3, SR on monitor. IVF and protonix gtts continue. SCDs and TEDs on. reinforced education on EXTRACT MIXER pump for pain mgmt.
on 4L NC, dyspnea with exertion noted. NGT and DAVID drain in place. TPN initiated through R PICC. pt repositioning self. call pride within reach, care ongoing.
[2024-06-08] MEDS: Parenteral Nutrition, Central 1030 IV (21:04)
[2024-06-08] MEDS: LANTUS SC (21:04)
[2024-06-08] MEDS: LANTUS 0.15 UNITS SC (22:04)
[2024-06-08 22:47] LABS: Glucose - Point of Care 203 mg/dl (70-99)
[2024-06-08] MEDS: NOVOLOG FLEXPEN-MODERATE RESISTANCE 3 UNITS SC (23:24)
[2024-06-09] VITALS (28 sets, daily range): BP systolic 66–151; BP diastolic 48–100; BMI 35.5
--- NOTE | 2024-06-09 00:50 | PTCARENOTE ---
pt with multiple episodes of incontinence/urgency episodes. brief placed. all linens replaced. pt educated to use call pride with urge to urinate, urinal at bedside. otherwise assessment unchanged. care ongoing.
[2024-06-09] MEDS: PROTONIX 100 IV ×3 (03:15→23:33)
[2024-06-09 03:29] LABS: Mean Corpuscular Hgb 32.7 pg (27.0-31.0); Mean Corpuscular Volume 93.4 fL (80.0-94.0); Platelet Count 163 10^3/uL (130-400); Red Blood Cell Count 2.11 10^6/uL (4.70-6.10); Red Cell Dist. Width 13.2 % (11.5-14.5); White Blood Cell Count 7.3 10^3/uL (4.8-10.8)
[2024-06-09 03:49] LABS: Hematocrit 19.7 % (39.0-52.0); Hemoglobin 6.9 g/dL (13.0-18.0)
[2024-06-09 04:08] LABS: ALT (SGPT) 19 U/L (0-50); AST (SGOT) 20 U/L (17-59); Albumin 1.8 g/dl (3.5-5.0); Alkaline Phosphatase 51 U/L (38-126); Blood Urea Nitrogen 29 mg/dl (9-20); Calcium 7.3 mg/dl (8.4-10.2); Carbon Dioxide 22 mmol/L (22-30); Chloride 120 mmol/L (98-107); Estimated Creatinine Clearance 83 ml/min; Glucose 175 mg/dl (70-99); Phosphorus 1.4 mg/dl (2.5-4.5); Sodium 142 mmol/L (135-145); Total Bilirubin 0.5 mg/dl (0.2-1.3); Total Protein 3.6 g/dl (6.3-8.2); eGFR > 60.00
--- NOTE | 2024-06-09 04:09 | PTCARENOTE ---
AM labs sent. Hgb 6.9, ICU LIBRARY CLERK aware, 1u PRBC ordered. pt repositioning self. reinforced DIGITIZER pump. call pride within reach, care ongoing.
[2024-06-09] MEDS: CALCIUM GLUCONATE 130 MG IV (04:29)
[2024-06-09] MEDS: NOVOLOG FLEXPEN-MODERATE RESISTANCE 3 UNITS SC ×2 (06:04→13:31)
[2024-06-09] MEDS: ZOSYN 50 IV (06:05)
[2024-06-09] MEDS: POTASSIUM PHOSPHATE 259.0909 MEQ IV ×2 (06:05→20:41)
[2024-06-09 06:08] LABS: Glucose - Point of Care 203 mg/dl (70-99)
--- NOTE | 2024-06-09 06:40 | PTCARENOTE ---
1u PRBC transfused through R PICC, documented on pink sheet, copy placed in chart
--- NOTE | 2024-06-09 07:08 | W.PN.INTV ---
Addendum entered and electronically signed by Edith Winter DO 06/09/24 13:23:
Transfer to IMU placed, we will sign off upon transfer
Please call with questions
Original Note:
Today's Communication / Plan
Recommendations
Doing well, not on pressors/hemodynamically stable last 72 hours
Continue further postop care per surgery, NPO/NGT continued
PT/OT
Abx per ID
Pain control
Can likely transfer to IMU if ok with care team
Assessment
-
68-year-old male with history of duodenal ulcer with gastritis requiring transfusion in 2020, presents with acute onset abdominal pain 06/03. He did not seek medical attention. Symptoms progressed, now presenting to [place] emergency room. Found
to have perforated duodenal ulcer per imaging. Patient plan to go to the OR per surgery
Acute abdominal pain, 06/03
Admitted 06/06
Perforated duodenal ulcer with free air per imaging
s/p exploratory laparotomy, primary repair of perforated duodenal ulcer with omental pedicle flap 06/06
Increased burgundy output overnight 06/07-06/08
Marginal blood pressure
Anemia, secondary to upper GI bleed
Leukocytosis
Polycythemia, hemoglobin 19.4 on admission
Elevated lactate
Hyperglycemia
Conditions present prior to admission
5.6 cm distal infrarenal abdominal aortic aneurysm
Hypertension
Diabetes
GERD/history of duodenal ulcer/gastritis
Hospitalized requiring transfusion 2020
History of hepatitis A
Family history of colon cancer
[id number] history of smoking, ongoing
Subpleural emphysema apical predominant per imaging
50 pound weight loss over the past year (per family)
Suspected sleep disordered breathing
Plan
At this time, patient remains stable off pressors
Repeat abdominal imaging did not reveal any evidence of active bleeding. Postsurgical changes noted
Postoperative EKG with poor R wave progression but no acute findings
Leukocytosis noted
History of diabetes noted
Moving forward
IV fluids
Empiric antibiotics, Zosyn continues
PPI therapy will continue
Maintain n.p.o.
NG tube in place
Surgery following
Hypertension noted. Likely underlying sepsis
Repeat hemoglobin as indicated
Son describes 50 pound weight loss over the last year
Ongoing smoking history
Postoperative EKG unchanged. Patient denies any prior cardiac issues
Patient denies any chest pain
Follow blood sugars. History of diabetes noted
Presently on postoperative fluids, normal saline
TPN to be started per discussion with surgery. PICC line will be placed
Once started, will discontinue IV fluids
Diabetic nurse practitioner will be consulted
Incentive spirometry
Wheezing on exam noted. Patient with ongoing smoking
Will start nebulized therapy
Out of bed to chair as able
DVT prophylaxis: Mechanical prophylaxis and pharmacological prophylaxis continue
GI prophylaxis: Remains on Protonix drip
Reviewed with primary service, critical care nursing, nursing, pharmacy, respiratory care, infectious disease
Reviewed with patient
Diagnostic Data
CXR 06/08/24- Satisfactory right PICC. Small bilateral pleural effusions with associated bibasilar probable atelectasis.
CT AP 06/08/24- 1. No foci of contrast extravasation to suggest active gastrointestinal hemorrhage at the time of imaging.
2. Small amount of hyperattenuating fluid within the duodenum, which may represent blood products.
3. Suggestion of mild postoperative ileus.
4. Small amount of free intraperitoneal air, likely postoperative.
5. Small bilateral pleural effusions, with likely bibasilar subsegmental atelectasis.
6. Abdominal aortic aneurysm, measuring 5.7 cm in greatest orthogonal dimension.
7. Multifocal arterial stenoses within both common iliac, external iliac, and common femoral arteries. If there is clinical suspicion of significant peripheral arterial disease, consider ankle-brachial indices.
CT CAP 06/06/24- Diffuse duodenitis. Duodenal perforation. No focal collection or abscess. Discussed with Dr. Rodgers at 11:48 AM on 06/06/2024, and reviewed with Dr. Sanchez.
Mid to distal infrarenal abdominal aortic fusiform aneurysm without secondary complications. No evidence to suggest impending rupture. No dissection.
Fatty infiltration of liver. Bilateral renal cysts. No obstructive uropathy.
Mild diverticulosis without acute diverticulitis. Esophageal wall thickening. Correlate clinically with symptoms of esophagitis.
Mild emphysema. Calcified granuloma in the right lower lobe.
2.3 mm noncalcified nodule in the anterolateral inferior right upper lobe. Consider follow-up in one year if the patient is at increased risk.
-----
Critical Care time 31 mins -- The patient is admitted for acute critical illness for the treatment of vital organ failure and/or prevention of further life-threatening conditions. Total care includes time spent in review of history, physical exam,
medications, hemodynamic/ventilator parameters, laboratory data, imaging and discussion with house staff, pharmacy, respiratory therapy, plastics patternmaker, and nursing.
Subjective Dataa
Subjective Data
Date of Service:
Date of Service: June 09, 2024
Chief Complaint: Director Career Follow Up
Subjective:
no events ON, remains NPO wtih NGT
has pain in back, leg spasm complaints
remains hemo stable off pressors
Objective Data
Data Reviewed
Vital Signs / I&O / Oxygen:
Vital Signs
Temp Pulse Resp BP Pulse Ox
98.0 F 81 18 139/61 94
06/09/24 03:39 06/09/24 07:00 06/09/24 07:00 06/09/24 07:00 06/09/24 05:30
Intake and Output
06/08/24 06/09/24 06/10/24
06:59 06:59 06:59
Intake Total 4890 / 4890 6127 / 6127
Output Total 3260 / 3260 4200 / 4200
Balance 1630 / 1630 1927 / 1927
SaO2 94
Nasal Cannula flow liters per 4
minute
Physical Exam
General: Comfortable
HEENT: Normocephalic, Anicteric and Moist Mucous Membranes
Cardiovascular: S1-S2, Regular Rhythm, Murmur (n), Rub (n) and Peripheral Edema (n)
Respiratory: Wheeze (Mild scattered), Crackles (n), Rhonchi (n), Stridor (n) and Other (Mild splinting with abdominal pain)
GI: Soft, Non Distended, Tender, NG Tube and Other (DAVID drain, abdominal dressing in place)
Neurology: Awake, Alert, Oriented, AO x 3 and No Motor Deficits
Skin: Cyanosis (n), Jaundice (n) and Rash (n)
Labs/Micro/Reports
Lab Data
06/09/24 03:21
06/09/24 03:21
Microbiology
06/06/24 11:50 Blood/Venous Blood Culture - Preliminary
No Growth in 48 hours- Final report to follow
06/06/24 11:50 Blood/Venous Blood Culture - Preliminary
No Growth in 48 hours- Final report to follow
06/06/24 14:11 Abdomen Wound Culture - Preliminary
No growth
06/06/24 14:11 Abdomen Gram Stain - Preliminary
06/06/24 14:11 Peritoneal Fluid Anaerobic Culture - Preliminary
Culture pending. Anaerobic cultures are examined after 3
days incubation. Additional information to follow.
--- NOTE | 2024-06-09 07:26 | W.PN.GS2 ---
Today's Communication / Plan
-
`
Assessment / Plan
-
Assessment: 68-year-old male POD #3 status post ex lap primary repair perforated giant duodenal ulcer with omental pedicle flap to buttress primary closure; washout large contaminated retroperitoneal/pancreatic perforation site.
AFVSS
Acute anemia present, drop; hemodilution is most significant contributer as patient was dehydrated on presentation and now s/p volume resuscitation - no clinical signs of active blood loss
- 1 unit 06/08; 1 unit 06/09 early AM
-NGT non bloody gastric contents
-DAVID SSF without significant blood either with expected quantity and character of drainage
-CT angio 06/08 negative for bleed
Operative cultures: Gram-positive cocci on Gram stain, no growth to date
Plan: Postoperative pain control with DRIVER LICENSE TECHNICIAN/Ofirmev
transfuse an additional unit this AM (for total now of 3 units post op)
Maintain n.p.o., continue NG tube decompression (okay for ice chips today slowly), await bowel recovery
Renewed TPN without changes + 1/2 NSS at 40mL for DRIVER LICENSE TECHNICIAN
Maintain DAVID
Continue Zosyn
Lovenox for VTE prophylaxis
Pantoprazole drip x 72 hr post op, will change to twice daily IV dosing 7/10 AM
Subjective Data
-
Date of Service: June 09, 2024
pt seen and examined
states using DRIVER LICENSE TECHNICIAN less often
post op pain present but controlled, mainly in incision and RUQ
no nausea
thirst
no flatus/BMs
voiding since townsend out
Objective Data
-
Intake and Output
06/08/24 06/09/24 06/10/24
06:59 06:59 06:59
Intake Total 4890 / 4890 6127 / 6127
Output Total 3260 / 3260 4200 / 4200
Balance 1630 / 1630 192 / 1927
Intake:
IV fluids (Total) 3840 / 3840 4680 / 4680
LR 1000 / 1000
Nss 1,000 ml @ 150 mls/hr IV . 3600 / 3600 3450 / 3450
[id number] [facility] Rx#:[id number]
Protonix 240 / 240 230 / 230
IV piggybacks 1050 / 1050 630 / 630
TPN/PPN 387 / 387
Amount instilled into GI Tube ( 180 / 180
Total)
Fenton Sump 180 / 180
Blood Product Amount Infused ( 250 / 250
mL)
Packed Rbc Leukoreduced Unit 250 / 250
[id number]
Output:
Drain Output (Total) 160 / 160 175 / 175
Right Abdomen Piotr-Tobias 160 / 160 175 / 175
Gastrointestinal tube output ( 950 / 950 100 / 100
Total)
Fenton Sump 950 / 950 100 / 100
Urine, Townsend 2150 / 2150 1625 / 1625
Urine, Voided 2300 / 2300
Other:
How many times incontinent 1
MODERATE amount urine
Vital Signs
Temp Pulse Resp BP Pulse Ox
98.0 F 81 18 139/61 94
06/09/24 03:39 06/09/24 07:00 06/09/24 07:00 06/09/24 07:00 06/09/24 05:30
Lab Results
06/09/24 03:21
06/09/24 03:21
Calcium 7.3 mg/dl (8.4-10.2) L 06/09/24 03:21
Phosphorus 1.4 mg/dl (2.5-4.5) L 06/09/24 03:21
Magnesium 2.0 mg/dl (1.6-2.3) 06/09/24 03:21
Total Bilirubin 0.5 mg/dl (0.2-1.3) 06/09/24 03:21
AST 20 U/L (17-59) 06/09/24 03:21
ALT 19 U/L (0-50) 06/09/24 03:21
Alkaline Phosphatase 51 U/L (38-126) 06/09/24 03:21
Total Protein 3.6 g/dl (6.3-8.2) L 06/09/24 03:21
Albumin 1.8 g/dl (3.5-5.0) L 06/09/24 03:21
Physical Exam
-
NAD AAOx3
ABD: soft, TTP with voluntary guarding localized to incision and RUQ
NGT with gastric contents - not bloody
DAVID with lightening SSF - not bloody, not bilious
midline incision with clips, no erythema, no drainage, no open wounds
[2024-06-09] MEDS: 0.45%NACL 1000 IV (07:35)
[2024-06-09] MEDS: NICODERM TRANSDERMAL 21 MG TRANSDERM (07:36)
[2024-06-09] MEDS: OFIRMEV 100 IV (07:37)
[2024-06-09] MEDS: DUONEB 3 ML INH ×2 (07:54→12:14)
--- NOTE | 2024-06-09 11:22 | W.PN.ID1 ---
Date of Service
Date of Service: June 09, 2024
Today's Communication
Narrow Zosyn to Unasyn
Assessment / Plan
# Perforated giant duodenal ulcer with peritonitis
- 7 s/p ex-lap, primary repair, perforated duodenal ulcer with omental pedicle flap.
- OR gram stain: moderate GPC, cx neg to date; Anaerobic cx pending
- Narrow Zosyn to Unasyn (d4 abx)
# Post-op ileus
# Tobacco use disorder
# DM
# AAA
#Additional Past Medical History:
Duodenal ulcer
DM
HTN
GERD
Abdominal aortic aneurysm 5.7 cm
Chief Complaint
-: Other (Perforated viscus)
Subjective / Review of Systems
Abdominal pain better controlled.
Vital Signs / Physical Exam
Vital Signs
Vital Signs
Temp Pulse Resp BP Pulse Ox
99.1 F 90 21 109/60 91
06/09/24 07:52 06/09/24 08:00 06/09/24 08:00 06/09/24 08:00 06/09/24 08:50
Physical Exam
Constitutional: No Acute Distress
Cardiovascular: Regular Rate and S1/S2
Pulmonary: Other (decreased BS at bases)
Gastrointestinal: Soft, Distended and Decreased Bowel Sounds
Extremities: Edema
Neurological: Other (drowsy)
Lines: PICC
Objective Data
Lab Data
Lab Results
06/09/24 03:21
06/09/24 03:21
PT 21.8 Sec (11.4-14.6) H 06/08/24 00:12
INR 1.88 06/08/24 00:12
APTT 42.4 Sec (23.4-35.0) H 06/08/24 00:12
Estimated Creat Clear 83 ml/min 06/09/24 03:21
Lactic Acid 1.2 mmol/L (0.7-2.0) 06/08/24 02:04
Total Bilirubin 0.5 mg/dl (0.2-1.3) 06/09/24 03:21
AST 20 U/L (17-59) 06/09/24 03:21
ALT 19 U/L (0-50) 06/09/24 03:21
Alkaline Phosphatase 51 U/L (38-126) 06/09/24 03:21
Most recent labs reviewed.
Micro Results:
06/06/24 14:11 Wound Culture - Preliminary
Abdomen No growth
Gram Stain - Preliminary
06/06/24 11:50 Blood Culture - Preliminary
Blood/Venous No Growth in 48 hours- Final report to follow
06/06/24 11:50 Blood Culture - Preliminary
Blood/Venous No Growth in 48 hours- Final report to follow
06/06/24 14:11 Anaerobic Culture - Preliminary
Peritoneal Fluid Culture pending. Anaerobic cultures are examined after 3
days incubation. Additional information to follow.
06/08/24 CT a/p: 1. No foci of contrast extravasation to suggest active gastrointestinal hemorrhage at the time of imaging.
2.Small amount of hyperattenuating fluid within the duodenum, which may represent blood products.
3. Suggestion of mild postoperative ileus.
4. Small amount of free intraperitoneal air, likely postoperative.
5. Small bilateral pleural effusions, with likely bibasilar subsegmental atelectasis.
6. Abdominal aortic aneurysm, measuring 5.7 cm in greatest orthogonal dimension.
7. Multifocal arterial stenoses within both common iliac, external iliac, and common femoral arteries. If there is clinical suspicion of significant peripheral arterial disease, consider ankle-brachial indices.
06/06/24 CTA C/A/P: Diffuse duodenitis. Duodenal perforation. No focal collection or abscess. Discussed with Dr. Rodgers at 11:48 AM on 06/06/2024, and reviewed with Dr. Sanchez. Mid to distal infrarenal abdominal aortic fusiform aneurysm without
secondary complications. No evidence to suggest impending rupture. No dissection.
[2024-06-09] MEDS: UNASYN IV ×2 (11:32→17:36)
[2024-06-09 11:49] LABS: Glucose - Point of Care 231 mg/dl (70-99)
--- NOTE | 2024-06-09 12:02 | PTCARENOTE ---
systems reviewed. Pt with less wheezing since oob this am, has been voiding t/o shift clear yellow urine. NGT output now lt green bilious. Pt had small loose burgundy colored stool, hypoactive bs. Denies nausea. Tolerating ice chips and mouth
swabs. Needs encouragement to stay out of bed, but pt agreeable. TPN continues, tabulating machine mechanic continues pt reports pain 4/10 prior to using tabulating machine mechanic. Appears in nad. Otherwise please see flowsheet.
--- NOTE | 2024-06-09 12:13 | PTCARENOTE ---
prbc infusing as ordered.
--- NOTE | 2024-06-09 12:42 | W.PN.HOSP.TC ---
Today's Communication/Plan
-
Monitor vital signs see plan
Transfuse PRBC
TPN per surgery
On SUPERVISORY CIVIL ENGINEER pump
Increase Lantus
Monitor electrolytes
Assessment / Plan
Assessment / Plan
CVS: S1-S2 normal
Chest: Decreased breath sounds bilaterally
Abdomen: Surgical wound, DAVID drain, very diminished bowel sounds
Extremities: No edema
MEDIA PRODUCER: Non focal exam
Repeat CT 06/08/2024-no contrast extravasation or active bleeding. Small amount of hyperattenuating fluid in the duodenum. Mild postop ileus. Small amount of free intraperitoneal air likely postoperative. Small bilateral pleural effusions with
bibasilar subsegmental atelectasis. Abdominal arctic aneurysm 5.7 cm. Multifocal arterial stenosis
#Severe sepsis secondary to perforated duodenal ulcer resulting peritonitis
Status post OR 06/06 with exploratory laparotomy, primary repair perforated duodenal ulcer with omental pedicle flap 06/06
H/O GERD/history of duodenal ulcer/gastritis
Blood culture NGTD
CT angio 06/08 negative for bleed
ID following, antibiotics changed to Unasyn. Continue to monitor culture
OR with gram-positive cocci
NPO per surgery, hold p.o. meds
Continue with PPI
Monitor DAVID drain
Monitor in ICU
Pain control
cw NGT per surgery; awaiting bowel return
TPN being initiated by surgery, currently on SUPERVISORY CIVIL ENGINEER pump managed by surgery
#Lactic acidosis
resolved
#Anemia- Due to acute post op blood loss
2 unit PRBC 06/09, hemoglobin 6.9 today
Continue to monitor hemoglobin
#History of hypertension
Hold lisinopril
Hydralazine as needed
#Diabetes mellitus
Since n.p.o., cw glargine at lower dose, Accu-Cheks
Increase Lantus to 18 U
Continue sliding scale
A1c 7.5
Hypophosphatemia
Replete
#History of smoking
Cessation advised
Nicotine patch
#Hypocalcemia-Check Vit D and replace calcium
#Abdominal aortic aneurysm, measuring 5.7 cm in greatest orthogonal dimension.
#PAD-Multifocal arterial stenoses within both common iliac, external iliac, and common femoral arteries.
HO when stable
#Mild LFT elevation-Monitor
#50 pound weight loss over the past year -Needs OP work up
#Hepatic Steatosis
#Hypoalbuminemia
#Diverticulosis
#History of hepatitis A
#2.3 mm noncalcified nodule in the anterolateral inferior right upper lobe-OP follow up
#Nutrition- TPN being started
#DVT prophylaxis-Lovenox
#Full code
I spent a total of 53 minutes with the patient or on the floor. More than 50% of this time involved counseling and coordination of care.
Anticipated Discharge: > 48 hours
Subjective/Interval History
-
Date of Service: June 09, 2024
Has some pain
Objective Data
-
Labs:
Laboratory Results
06/09/24
03:21
WBC 7.3
Hgb 6.9 L*
Hct 19.7 L*
Plt Count 163
Sodium 142
Potassium 4.0
Chloride 120 H
Carbon Dioxide 22
BUN 29 H
Creatinine 0.9
Glucose 175 H
Calcium 7.3 L
Total Bilirubin 0.5
AST 20
ALT 19
Alkaline Phosphatase 51
Vital Signs:
Vital Signs
Temp Pulse Resp BP Pulse Ox
98.2 F 87 16 133/67 91
06/09/24 12:14 06/09/24 12:30 06/09/24 12:30 06/09/24 12:30 06/09/24 10:00
I&O
06/08/24 06/09/24 06/10/24
06:59 06:59 06:59
Intake Total 4890 / 4890 6127 / 6220 639 / 639
Output Total 3260 / 3260 4200 / 4475 575 / 575
Balance 1630 / 1630 1927 / 1745 64 / 64
[2024-06-09] MEDS: NOVOLOG FLEXPEN 3 UNITS SC ×3 (13:31→23:36)
[2024-06-09] MEDS: PRED FORTE 1% EYE DROPS 1 DROP LEFT EYE (13:32)
[2024-06-09] MEDS: DILAUDID PCA 30 IV (15:13)
--- NOTE | 2024-06-09 16:20 | CM ---
Chart reviewed will follow with patient progress.
Plan; To follow with patient progress
[2024-06-09 17:09] LABS: Glucose - Point of Care 170 mg/dl (70-99)
[2024-06-09] MEDS: LOVENOX 40 MG SC (17:35)
[2024-06-09] MEDS: NOVOLOG FLEXPEN-MODERATE RESISTANCE 1 UNITS SC (17:35)
--- NOTE | 2024-06-09 18:40 | PTCARENOTE ---
pt called for bedpan, passed moderate amount burgundy gelatinous stool. Jass DOWELL made aware, VSS, repeat labs drawn and sent.
[2024-06-09 18:42] LABS: Hemoglobin 9.8 g/dL (13.0-18.0)
[2024-06-09 18:56] LABS: Blood Urea Nitrogen 23 mg/dl (9-20); Calcium 8.1 mg/dl (8.4-10.2); Carbon Dioxide 21 mmol/L (22-30); Chloride 119 mmol/L (98-107); Estimated Creatinine Clearance 95 ml/min; Glucose 172 mg/dl (70-99); Magnesium 1.9 mg/dl (1.6-2.3); Potassium 3.7 mmol/L (3.5-5.1); Sodium 145 mmol/L (135-145); eGFR > 60.00
--- NOTE | 2024-06-09 20:00 | PTCARENOTE ---
rec`d pt at 1900. AAOx3, can be anxious at times. ST on monitor. CREDIT SPECIALIST pump. RT PICC flushed and patent w/ TPN. left FA and Left hand Ivs. frequent pvcs. k phos ordered and repleted. scds and teds in place. inspir wheeze and coarse lung sounds. non
productive cough. 6L NC POX 92%. pt uses bedpan. gelatinous, burgundy BM at change of shift, small amount. rt nare NGT to LIWS draining brown. pt uses urinal, clear yellow urine. frequent urination. midline abdomen incision w/ robi, open to air.
rt DAVID draining minimal sersang. pt eats ice chips. call pride in reach. safe environment maintained.
[2024-06-09] MEDS: Parenteral Nutrition, Central 1050 IV (20:17)
[2024-06-09 21:57] LABS: Glucose - Point of Care 247 mg/dl (70-99)
[2024-06-09] MEDS: LANTUS 0.2 UNITS SC (22:06)
[2024-06-09 23:27] LABS: Glucose - Point of Care 276 mg/dl (70-99)
[2024-06-09] MEDS: NOVOLOG FLEXPEN-MODERATE RESISTANCE 5 UNITS SC (23:36)
--- NOTE | 2024-06-09 23:42 | W.PN.UPDATE ---
Update Note
Progress Note Update
Reported by the nursing staff, that the patient had bloody liquid stool, by reviewing the chart patient had total 3 bowel movements with burgundy color and gelatinous since noon. Patient now is hypotensive with bp 92/54, hr 108, SPO2 93% on 6 L of
O2. Bowel sound hypoactive on abdominal exam.
-New orders of stat h&h, one time bolus of 500 cc NSS, one unit of blood ordered.
-Hgb level dropped down from 9.8 to 7.6. will add h&h q 6hrs
- Dr. Loera/ surgical concaver contacted and updated, no new recommendation at this time.
-Case reviewed with the attending physician and will transfer the patient to ICU level.
[2024-06-09 23:43] LABS: Hemoglobin 7.6 g/dL (13.0-18.0)
[2024-06-10] VITALS (82 sets, daily range): BP systolic 71–150; BP diastolic 39–128; BMI 35.2
[2024-06-10] MEDS: NSS 500 IV (01:06)
[2024-06-10] MEDS: UNASYN IV ×4 (01:06→18:18)
--- NOTE | 2024-06-10 01:21 | PTCARENOTE ---
pt had 2 very large BMs. burgundy liquid stool. rectal trumpet placed. hgb and BP drop. Brody DOWELL aware. DR. Loera aware. no recommendations from him. pt transferred from IMU to ICU status. NS bolus given and awaiting type and screen to begin
blood transfusion per Brody DOWELL. condom cath placed for frequent urination.
--- NOTE | 2024-06-10 04:21 | W.PN.UPDATE ---
Addendum entered and electronically signed by DELMER Sellers 06/10/24 05:39:
Patient continue drop in HGB to 6.8. Maintain ICU status. Ordering two units of blood.
Original Note:
Update Note
Progress Note Update
Patient responded appropriately to fluid bolus and blood. Transferring patient back to IMU status.
[2024-06-10 05:24] LABS: % Basophils 0.4 % (0-2); % Eosinophils 0.7 % (0-6); % Immature Granulocytes 3.7 % (0-0.5); % Lymphocytes 11.5 % (20.5-51.1); % Monocytes 6.5 % (1.7-9.3); % Neutrophils 77.2 % (42.2-75.2); Absolute Eosinophils 0.1 10^3/uL (0-0.7); Absolute Immature Granulocytes 0.4 10^3/uL (0-0.05); Absolute Lymphocytes 1.3 10^3/uL (1.2-3.4); Absolute Monocytes 0.7 10^3/uL (0.1-0.6); Absolute Neutrophils 8.4 10^3/uL (1.4-6.5); Mean Corp Hgb Conc. 35.3 g/dL (33.0-37.0); Mean Corpuscular Hgb 32.2 pg (27.0-31.0); Mean Corpuscular Volume 91.2 fL (80.0-94.0); Mean Platelet Volume 10.2 fL (7.4-10.4); Nucleated Red Blood Cells % 0.3 % (-); Platelet Count 186 10^3/uL (130-400); Red Blood Cell Count 2.05 10^6/uL (4.70-6.10); White Blood Cell Count 10.9 10^3/uL (4.8-10.8)
[2024-06-10 05:34] LABS: Hematocrit 18.7 % (39.0-52.0); Hemoglobin 6.6 g/dL (13.0-18.0)
[2024-06-10 05:43] LABS: ALT (SGPT) 24 U/L (0-50); AST (SGOT) 40 U/L (17-59); Albumin 1.5 g/dl (3.5-5.0); Alkaline Phosphatase 117 U/L (38-126); Blood Urea Nitrogen 28 mg/dl (9-20); Calcium 7.3 mg/dl (8.4-10.2); Carbon Dioxide 21 mmol/L (22-30); Chloride 117 mmol/L (98-107); Estimated Creatinine Clearance 84 ml/min; Glucose 435 mg/dl (70-99); Phosphorus 4.7 mg/dl (2.5-4.5); Potassium 5.7 mmol/L (3.5-5.1); Sodium 141 mmol/L (135-145); Total Bilirubin 0.6 mg/dl (0.2-1.3); eGFR > 60.00
--- NOTE | 2024-06-10 06:01 | W.PN.UPDATE ---
Update Note
Progress Note Update
Repeating morning BMP, Glucose read 435 but finger stick was 280.
[2024-06-10 06:09] LABS: Glucose - Point of Care 280 mg/dl (70-99)
[2024-06-10] MEDS: NOVOLOG FLEXPEN 3 UNITS SC (06:18)
[2024-06-10] MEDS: NOVOLOG FLEXPEN-MODERATE RESISTANCE 5 UNITS SC (06:18)
--- NOTE | 2024-06-10 06:26 | PTCARENOTE ---
hgb dropped to 6.6. 2 more units ordered. labs redone to recheck. RADIO TELEVISION TECHNICAL DIRECTOR aware.
[2024-06-10 06:33] LABS: Hematocrit 18.2 % (39.0-52.0); Hemoglobin 6.6 g/dL (13.0-18.0)
[2024-06-10] MEDS: CALCIUM GLUCONATE 130 MG IV (06:41)
[2024-06-10 06:45] LABS: Blood Urea Nitrogen 29 mg/dl (9-20); Calcium 7.2 mg/dl (8.4-10.2); Carbon Dioxide 22 mmol/L (22-30); Chloride 120 mmol/L (98-107); Estimated Creatinine Clearance 94 ml/min; Glucose 222 mg/dl (70-99); Potassium 4.4 mmol/L (3.5-5.1); Sodium 143 mmol/L (135-145); eGFR > 60.00
--- NOTE | 2024-06-10 07:14 | W.PN.INTV ---
Today's Communication / Plan
Recommendations
Bleed noted overnight, readmitted to ICU
Now receiving transfusions, follow serial H&Hs
CT AP with no overt signs of bleeding, can continue observation, surgery following
BS elevated due to advancement of TPN, will add insulin gtt
Check proBNP, may need lasix if ongoing transfusions are required
Assessment
-
68-year-old male with history of duodenal ulcer with gastritis requiring transfusion in 2020, presents with acute onset abdominal pain 06/03. He did not seek medical attention. Symptoms progressed, now presenting to [place] emergency room. Found
to have perforated duodenal ulcer per imaging. Patient plan to go to the OR per surgery
Acute abdominal pain, 06/03
Admitted 06/06
Perforated duodenal ulcer with free air per imaging
s/p exploratory laparotomy, primary repair of perforated duodenal ulcer with omental pedicle flap 06/06
Acute blood loss anemia from GIB unclear cause
BRBPR
Marginal blood pressure
Leukocytosis
Polycythemia, hemoglobin 19.4 on admission
Elevated lactate
Hyperglycemia
Conditions present prior to admission
5.6 cm distal infrarenal abdominal aortic aneurysm
Hypertension
Diabetes
GERD/history of duodenal ulcer/gastritis
Hospitalized requiring transfusion 2020
History of hepatitis A
Family history of colon cancer
[id number] history of smoking, ongoing
Subpleural emphysema apical predominant per imaging
50 pound weight loss over the past year (per family)
Suspected sleep disordered breathing
Plan
At this time, patient remains stable off pressors
Hb drop noted, receiving transfusions/H&H serially followed
Repeat abdominal imaging did not reveal any evidence of active bleeding --> CT AP today showing no bleed
Postsurgical changes noted
Postoperative EKG with poor R wave progression but no acute findings
Leukocytosis noted
History of diabetes noted
Moving forward
IV fluids
Empiric antibiotics, Zosyn continues
PPI therapy will continue
Maintain n.p.o.
NG tube in place
Surgery following
Hypertension noted. Likely underlying sepsis
Recheck proBNP
May need lasix if elevated from blood products
Postoperative EKG unchanged. Patient denies any prior cardiac issues
Patient denies any chest pain
Son describes 50 pound weight loss over the last year
Ongoing smoking history
No known lung disease
Incentive spirometry
PRN nebs
Out of bed to chair as able
Follow blood sugars. History of diabetes noted
Presently on postoperative fluids, normal saline
TPN to be started per discussion with surgery. PICC line will be placed
BS are still elevated with advancement of TPN
Will start insulin protocol
DVT prophylaxis: Mechanical prophylaxis and pharmacological prophylaxis continue
GI prophylaxis: Remains on Protonix drip
Reviewed with primary service, critical care nursing, nursing, pharmacy, respiratory care, infectious disease
Reviewed with patient
Diagnostic Data
CXR 06/08/24- Satisfactory right PICC. Small bilateral pleural effusions with associated bibasilar probable atelectasis.
CT AP 06/08/24- 1. No foci of contrast extravasation to suggest active gastrointestinal hemorrhage at the time of imaging.
2. Small amount of hyperattenuating fluid within the duodenum, which may represent blood products.
3. Suggestion of mild postoperative ileus.
4. Small amount of free intraperitoneal air, likely postoperative.
5. Small bilateral pleural effusions, with likely bibasilar subsegmental atelectasis.
6. Abdominal aortic aneurysm, measuring 5.7 cm in greatest orthogonal dimension.
7. Multifocal arterial stenoses within both common iliac, external iliac, and common femoral arteries. If there is clinical suspicion of significant peripheral arterial disease, consider ankle-brachial indices.
CT CAP 06/06/24- Diffuse duodenitis. Duodenal perforation. No focal collection or abscess. Discussed with Dr. Rodgers at 11:48 AM on 06/06/2024, and reviewed with Dr. Sanchez.
Mid to distal infrarenal abdominal aortic fusiform aneurysm without secondary complications. No evidence to suggest impending rupture. No dissection.
Fatty infiltration of liver. Bilateral renal cysts. No obstructive uropathy.
Mild diverticulosis without acute diverticulitis. Esophageal wall thickening. Correlate clinically with symptoms of esophagitis.
Mild emphysema. Calcified granuloma in the right lower lobe.
2.3 mm noncalcified nodule in the anterolateral inferior right upper lobe. Consider follow-up in one year if the patient is at increased risk.
-----
Critical Care time 35 mins -- The patient is admitted for acute critical illness for the treatment of vital organ failure and/or prevention of further life-threatening conditions. Total care includes time spent in review of history, physical exam,
medications, hemodynamic/ventilator parameters, laboratory data, imaging and discussion with house staff, pharmacy, respiratory therapy, drapery operator, and nursing.
Subjective Dataa
Subjective Data
Date of Service:
Date of Service: June 10, 2024
Chief Complaint: Turfgrass Technician Follow Up
Subjective:
Bleeding noted overnight, transfused
Re-admitted back to ICU
Hemodynamically stable, not on pressors
Objective Data
Data Reviewed
Vital Signs / I&O / Oxygen:
Vital Signs
Temp Pulse Resp BP Pulse Ox
97.8 F 103 18 92/71 97
06/10/24 06:29 06/10/24 06:29 06/10/24 06:29 06/10/24 06:29 06/10/24 06:29
Intake and Output
06/09/24 06/10/24 06/11/24
06:59 06:59 06:59
Intake Total 6127 / 6220 3863 / 3957 94 / 94
Output Total 4200 / 4475 3110 / 3950 840 / 840
Balance 1926 753 / 7 -746 / -746
SaO2 97
Nasal Cannula flow liters per 4
minute
Physical Exam
General: Comfortable
HEENT: Normocephalic, Anicteric and Moist Mucous Membranes
Cardiovascular: S1-S2, Regular Rhythm, Murmur (n), Rub (n) and Peripheral Edema (n)
Respiratory: Wheeze (Mild scattered), Crackles (n), Rhonchi (n), Stridor (n) and Other (Mild splinting with abdominal pain)
GI: Soft, Non Distended, Tender, NG Tube and Other (DAVID drain, abdominal dressing in place)
Neurology: Awake, Alert, Oriented, AO x 3 and No Motor Deficits
Skin: Cyanosis (n), Jaundice (n) and Rash (n)
Labs/Micro/Reports
Lab Data
06/10/24 06:08
06/10/24 06:08
Microbiology
06/06/24 14:11 Peritoneal Fluid Anaerobic Culture - Preliminary
NO ANAEROBES ISOLATED
06/06/24 11:50 Blood/Venous Blood Culture - Preliminary
No Growth in 72 hours- Final report to follow
06/06/24 11:50 Blood/Venous Blood Culture - Preliminary
No Growth in 72 hours- Final report to follow
06/06/24 14:11 Abdomen Wound Culture - Preliminary
No growth
06/06/24 14:11 Abdomen Gram Stain - Preliminary
--- NOTE | 2024-06-10 07:41 | W.PN.GS2 ---
Today's Communication / Plan
-
`
Assessment / Plan
-
Assessment: 68-year-old male POD #4 status post ex lap primary repair perforated giant duodenal ulcer with omental pedicle flap to buttress primary closure; washout large contaminated retroperitoneal/pancreatic perforation site.
AFVSS
Acute blood loss anemia
-maroon/bloody stools started yesterday PM and has continued
- hgb drop 9.8 to 6.6 this AM
- NGT bilious and non-bloody outputs
- DAVID with light SSF
- rectal tube appearance of blood more c/w lower GI source potentially - possible mucosal/sloughing from colon in setting of prior post op hypotension/mobilization hepatic flexure during surgery leading to transient colonic ischemia - no
peritonitis on exam, AF
Operative cultures: Gram-positive cocci on Gram stain, no growth to date
Plan: obtain CT a/p angio - GI bleed protocol
discontinued PROCESS STEWARD as not utilizing regularly
transfuse 2 units this AM (for total now of 3 units post op)
Maintain n.p.o., continue NG tube decompression (okay for ice chips today slowly), await bowel recovery
Renewed TPN
Maintain DAVID
Continue Zosyn
Lovenox for VTE prophylaxis
Pantoprazole drip x 72 hr post op, will change to twice daily IV dosing if CT angio negative for UGI source
Subjective Data
-
Date of Service: June 10, 2024
pt seen and examined
d/w nursing
pt upset about overnight events/incontinent bloody stools
thirsty
abdominal pains improving from initially post op
Objective Data
-
Intake and Output
06/09/24 06/10/24 06/11/24
06:59 06:59 06:59
Intake Total 9372 / 6220 3863 / 7287 94 / 94
Output Total 4200 / 4475 3110 / 3950 840 / 840
Balance 1927 / 1745 753 / 7 -746 / -746
Intake:
IV fluids (Total) 4680 / 4730 1160 / 1210 50 / 50
0.45%NaCl 1,000 ml @ 40 mls/hr 880 / 920 40 / 40
IV .Q24H ENRIQUE Rx#:[id number]
LR 1000 / 1000
Nss 1,000 ml @ 150 mls/hr IV . 3450 / 3490 40 / 40
Q6H40M ENRIQUE Rx#:[id number]
Protonix 230 / 240 240 / 250 10 / 10
IV piggybacks 630 / 630 1080 / 1080
TPN/PPN 387 / 430 1043 / 1087 44 / 44
Amount instilled into GI Tube ( 180 / 180 80 / 80
Total)
Christine Sump 180 / 180 80 / 80
Blood Product Amount Infused ( 250 / 250 500 / 500
mL)
Packed Rbc Leukoreduced Unit 0 / 0
[id number]
Packed Rbc Leukoreduced Unit 250 / 250
[id number]
Packed Rbc Leukoreduced Unit 250 / 250
[id number]
Packed Rbc Leukoreduced Unit 250 / 250
[id number]
Output:
Drain Output (Total) 175 / 175 85 / 125 40 / 40
Right Abdomen Piotr-Tobias 175 / 175 85 / 125 40 / 40
Gastrointestinal tube output ( 100 / 100 350 / 350
Total)
Christine Sump 100 / 100 350 / 350
Urine, Bella 1625 / 1625
Urine, Voided 2300 / 2575 2675 / 3475 800 / 800
Other:
How many times incontinent 1
MODERATE amount urine
Number of unmeasured liquid
stools
Rectum 2
Vital Signs
Temp Pulse Resp BP Pulse Ox
97.7 F 103 18 92/71 97
0710/24 07:32 06/10/24 06:29 06/10/24 06:29 06/10/24 06:29 06/10/24 06:29
Lab Results
06/10/24 06:08
06/10/24 06:08
Calcium 7.2 mg/dl (8.4-10.2) L 06/10/24 06:08
Phosphorus 4.7 mg/dl (2.5-4.5) H 06/10/24 05:01
Magnesium 2.0 mg/dl (1.6-2.3) 06/10/24 05:01
Total Bilirubin 0.6 mg/dl (0.2-1.3) 06/10/24 05:01
AST 40 U/L (17-59) 06/10/24 05:01
ALT 24 U/L (0-50) 06/10/24 05:01
Alkaline Phosphatase 117 U/L (38-126) 06/10/24 05:01
Total Protein 3.0 g/dl (6.3-8.2) L 06/10/24 05:01
Albumin 1.5 g/dl (3.5-5.0) L 06/10/24 05:01
Physical Exam
-
NAD AAOx3
ABD: softly distended. TTP mainly in RUQ and incisional; no guarding
DAVID light SSF
NGT bilious - nonbloody
[2024-06-10] MEDS: PRED FORTE 1% EYE DROPS 1 DROP LEFT EYE (09:15)
[2024-06-10] MEDS: NICODERM TRANSDERMAL 21 MG TRANSDERM (09:15)
--- NOTE | 2024-06-10 09:27 | W.PN.ID1 ---
Date of Service
Date of Service: June 10, 2024
Today's Communication
Continue antibiotics per
Assessment / Plan
# Perforated giant duodenal ulcer with peritonitis
- 7/6 s/p ex-lap, primary repair, perforated duodenal ulcer with omental pedicle flap.
- OR gram stain: moderate GPC, cx neg to date; Anaerobic cx pending
- Continue with Unasyn (d#5 abx)
# Post-op ileus
# Anemia (acute blood loss) with maroon/bloody stools.
# Tobacco use disorder
# DM
# AAA
#Additional Past Medical History:
Duodenal ulcer
DM
HTN
GERD
Abdominal aortic aneurysm 5.7 cm
Chief Complaint
-: Other (Perforated viscus)
Subjective / Review of Systems
Patient seen and examined.
Review of Systems: No Fever and No Chills
Vital Signs / Physical Exam
Vital Signs
Vital Signs
Temp Pulse Resp BP Pulse Ox
98.4 F 102 22 106/61 95
06/10/24 08:09 06/10/24 08:30 06/10/24 08:30 06/10/24 08:15 06/10/24 08:31
Physical Exam
Constitutional: No Acute Distress
Head: Other
Cardiovascular: Regular Rate and S1/S2; Negative S3/S4
Pulmonary: Other (decreased BS at bases)
Gastrointestinal: Soft, Distended and Decreased Bowel Sounds
Extremities: Edema
Neurological: Other (drowsy)
Lines: PICC
Objective Data
Lab Data
Lab Results
06/10/24 06:08
06/10/24 06:08
PT 21.8 Sec (11.4-14.6) H 06/08/24 00:12
INR 1.88 06/08/24 00:12
APTT 42.4 Sec (23.4-35.0) H 06/08/24 00:12
Estimated Creat Clear 94 ml/min 06/10/24 06:08
Lactic Acid 1.2 mmol/L (0.7-2.0) 06/08/24 02:04
Total Bilirubin 0.6 mg/dl (0.2-1.3) 06/10/24 05:01
AST 40 U/L (17-59) 06/10/24 05:01
ALT 24 U/L (0-50) 06/10/24 05:01
Alkaline Phosphatase 117 U/L (38-126) 06/10/24 05:01
Most recent labs reviewed.
Micro Results:
06/06/24 14:11 Anaerobic Culture - Preliminary
Peritoneal Fluid NO ANAEROBES ISOLATED
06/06/24 11:50 Blood Culture - Preliminary
Blood/Venous No Growth in 72 hours- Final report to follow
06/06/24 11:50 Blood Culture - Preliminary
Blood/Venous No Growth in 72 hours- Final report to follow
06/06/24 14:11 Wound Culture - Preliminary
Abdomen No growth
Gram Stain - Preliminary
06/08/24 CT a/p: 1. No foci of contrast extravasation to suggest active gastrointestinal hemorrhage at the time of imaging.
2.Small amount of hyperattenuating fluid within the duodenum, which may represent blood products.
3. Suggestion of mild postoperative ileus.
4. Small amount of free intraperitoneal air, likely postoperative.
5. Small bilateral pleural effusions, with likely bibasilar subsegmental atelectasis.
6. Abdominal aortic aneurysm, measuring 5.7 cm in greatest orthogonal dimension.
7. Multifocal arterial stenoses within both common iliac, external iliac, and common femoral arteries. If there is clinical suspicion of significant peripheral arterial disease, consider ankle-brachial indices.
06/06/24 CTA C/A/P: Diffuse duodenitis. Duodenal perforation. No focal collection or abscess. Discussed with Dr. Rodgers at 11:48 AM on 06/06/2024, and reviewed with Dr. Sanchez. Mid to distal infrarenal abdominal aortic fusiform aneurysm without
secondary complications. No evidence to suggest impending rupture. No dissection.
--- NOTE | 2024-06-10 10:06 | PN.CDI ---
CDI
- -
CDI:
Physician Documentation Request
Admit Date: 06/06/24 16:38
Dear Doctor Tom,
Patient admitted for sepsis.
06/09 Hospitalist PN: 'Severe sepsis secondary to perforated duodenal ulcer resulting peritonitis'
The purpose of this query is not to question medical judgement, but to ensure the accuracy of the conditions reported for your patient.
In your note, please clarify the patient's infectious status:
Sepsis
- Systemic manifestations of infection, with 2 or more SIRS criteria which include:
- Fever >100.4 degrees F or hypothermia < 96.8 degrees F
- Leukocytosis - WBC > 12,000 or leukopenia - WBC < 4,000 or > 10% bands
- Tachycardia > 90 beats per minute
- Tachypnea - RR > 20 breaths per minute or PaCO2 , 32mmHg
Source: Merck Manual 2013
- Indicate the known or suspected organism
- Indicate the known or suspected underlying infection, such as UTI, pneumonia or cellulitis
- Indicate if a suspected bacterial infection of unknown source
- Indicate if associated with an implanted device such as a F/C, PICC line, orthopedic hardware, etc.
Severe Sepsis
- Sepsis with associated acute organ dysfunction, such as renal or respiratory failure
- Documentation should indicate the association between the sepsis and the organ dysfunction
Other
Use of terms such as suspected, likely, concern for, or probable (associated with a specific diagnosis that is being evaluated, monitored, or treated as if it exists) are acceptable and can be coded in the inpatient setting, when documented at the
time of discharge.
Thank you,
Angela Carreno RN, BSN
CDI Specialist
Available via [employer] text
Please use your independent medical judgment in providing your response.
[2024-06-10] MEDS: 0.45%NACL IV (11:05)
[2024-06-10 11:11] LABS: NT-proBNP 462 pg/ml
[2024-06-10] MEDS: NOVOLIN R INSULIN INFUSION 100 IV (11:28)
[2024-06-10] MEDS: NOVOLIN R 4 UNITS IV (11:29)
[2024-06-10 11:31] LABS: Glucose - Point of Care 220 mg/dl (70-99)
[2024-06-10] MEDS: DILAUDID 0.5 MG IV ×3 (11:42→21:44)
[2024-06-10] MEDS: PROTONIX 100 IV ×2 (11:44→21:10)
--- NOTE | 2024-06-10 11:57 | PTCARENOTE ---
Unit of PRBC infusing. Pt sleeping on and off throughout day. INPATIENT AUDITOR dilaudid d/c'd this am. Has only received 1 prn dose of Dilaudid in last 4 hrs. Insulin gtt started per order. TPN and protonix gtt continue. Good urine output per condom cath.
Little to no output via rectal trumpet since pt received at 0700. NGT draining clear brown. All other assessments unchanged.
[2024-06-10 12:53] LABS: Glucose - Point of Care 135 mg/dl (70-99)
--- NOTE | 2024-06-10 13:31 | PN.DE.MGMTRT ---
Insulin Management
- -
06/10/2024 Diabetes Management Consult
Patient admitted 06/06 with abdominal pain, perforated viscus, perforated duod. ulcer. PMH type 2 diabetes, peptic ulcer. Prior to admission was taking basaglar 20 units hs, no other diabetes medications. A1C 7.5%cr .8 eGFR >60. Patient normally
sees Kevin Laws PA-C and Dr. Desai for diabetes management.
POD 4 s/p exploratory lap and repair of perforated ulcer/viscus.
Patient is awake, alert and oriented in bed, family at bedside. He currently is NPO has an NG tube and is receiving TPN. He was placed on glycemic protocol ~ 10AM. Will follow for readiness to transition to subcutaneous insulin.
Patient has barbara CGM.
I spoke with patients nurse regarding diabetes management.
Diabetes History
- -
Type of Diabetes: 2 requiring insulin
Pre-Admission Diabetes Regimen
06/09/24 06/10/24 06/10/24
18:36 05:01 06:08
Creatinine 0.8 0.9 0.8
Lab Results
Hemoglobin A1c 7.5 % (4.0-5.6) H 06/07/24 03:22
Insulin Pump Settings
IP Diabetes Regimen
06/09/24 06/09/24 06/09/24
16:58 18:36 21:46
Glucose 172 H
POC Glucose 170 H 247 H
06/09/24 06/10/24 06/10/24
23:15 05:01 05:58
Glucose 435 H
POC Glucose 276 H 280 H
06/10/24 06/10/24 06/10/24
06:08 11:10 12:42
Glucose 222 H
POC Glucose 220 H 135 H
Patient Education
--- NOTE | 2024-06-10 14:18 | W.PN.HOSP.TC ---
Today's Communication/Plan
-
Monitor vital signs and see plan
CT without any acute bleeding
Continue to monitor with blood transfusion
TPN per surgery
Repeat hemoglobin later today
Assessment / Plan
Assessment / Plan
CVS: S1-S2 normal
Chest: Decreased breath sounds bilaterally
Abdomen: Surgical wound, DAVID drain, very diminished bowel sounds
Rectal tube with BRBPR
Extremities: No edema
MARINE SURVEYOR: Non focal exam
Repeat CT 06/08/2024-no contrast extravasation or active bleeding. Small amount of hyperattenuating fluid in the duodenum. Mild postop ileus. Small amount of free intraperitoneal air likely postoperative. Small bilateral pleural effusions with
bibasilar subsegmental atelectasis. Abdominal arctic aneurysm 5.7 cm. Multifocal arterial stenosis
#Sepsis secondary to perforated duodenal ulcer resulting peritonitis
Status post OR 06/06 with exploratory laparotomy, primary repair perforated duodenal ulcer with omental pedicle flap 06/06
H/O GERD/history of duodenal ulcer/gastritis
Blood culture NGTD
CT angio 06/08 negative for bleed
ID following, antibiotics changed to Unasyn. Continue to monitor culture
OR with gram-positive cocci
NPO per surgery, hold p.o. meds
Continue with PPI
Monitor DAVID drain
Monitor in ICU
Pain control
cw NGT per surgery; awaiting bowel return
TPN being initiated by surgery, currently on THEATER TEACHER pump managed by surgery; DC THEATER TEACHER, and control with IV pushes given hypotension
#Lactic acidosis
resolved
#Anemia- Due to acute blood loss anemia
Bright red blood per rectum overnight 06/10
2 unit PRBC 06/09, 3 units 06/10; hemoglobin 6.6 today; monitor. CTA 06/10 without any acute GI bleeding
Continue to monitor hemoglobin with blood transfusion
#History of hypertension
Hold lisinopril
Hydralazine as needed
#Diabetes mellitus
Since n.p.o., cw glargine at lower dose, Accu-Cheks
Now on insulin drip
Diabetes SEO STRATEGIST following
Continue sliding scale
A1c 7.5
Hypophosphatemia
Replete
#History of smoking
Cessation advised
Nicotine patch
#Hypocalcemia-Check Vit D and replace calcium
#Abdominal aortic aneurysm, measuring 5.7 cm in greatest orthogonal dimension.
#PAD-Multifocal arterial stenoses within both common iliac, external iliac, and common femoral arteries.
HO when stable
#Mild LFT elevation-Monitor
#50 pound weight loss over the past year -Needs OP work up
#Hepatic Steatosis
#Hypoalbuminemia
#Diverticulosis
#History of hepatitis A
#2.3 mm noncalcified nodule in the anterolateral inferior right upper lobe-OP follow up
#Nutrition- TPN being started
#DVT prophylaxis-Lovenox
#Full code
I spent a total of 54 minutes with the patient or on the floor. More than 50% of this time involved counseling and coordination of care.
Anticipated Discharge: > 48 hours
Subjective/Interval History
-
Date of Service: June 10, 2024
hgb low again today
Objective Data
-
Labs:
Laboratory Results
06/10/24 06/10/24
05:01 06:08
WBC 10.9 H
Hgb 6.6 L* 6.6 L*
Hct 18.7 L* 18.2 L*
Plt Count 186
Sodium 141 143
Potassium 5.7 H D 4.4
Chloride 117 H 120 H
Carbon Dioxide 21 L 22
BUN 28 H 29 H
Creatinine 0.9 0.8
Glucose 435 H 222 H
Calcium 7.3 L 7.2 L
Total Bilirubin 0.6
AST 40
ALT 24
Alkaline Phosphatase 117
Vital Signs:
Vital Signs
Temp Pulse Resp BP Pulse Ox
98.6 F 86 15 116/72 93
06/10/24 12:57 06/10/24 12:57 06/10/24 12:57 06/10/24 12:57 06/10/24 12:53
I&O
06/09/24 06/10/24 06/11/24
06:59 06:59 06:59
Intake Total 6127 / 6220 3863 / 3957 1384 / 1384
Output Total 4200 / 4475 3110 / 3950 1800 / 1800
Balance 1927 / 1745 753 / 7 -416 / -416
[2024-06-10 14:31] LABS: Glucose - Point of Care 140 mg/dl (70-99)
--- NOTE | 2024-06-10 14:39 | CM ---
CM following re: discharge planning.
Reviewed pt's chart, met with pt.
Pt is a POD #4 status post ex lap primary repair perforated giant duodenal ulcer with omental pedicle flap to buttress primary closure. Per Rounds meeting, Maintain n.p.o., continue NG tube decompression, maintain DAVID, Renewed TPN , continue
supportive care.
Pt lives with spouse in a rancher style house, has 3 supportive children and independent in all areas [place].
D/C plan: home with anticipated no needs. Family to transport at discharge.
CM will follow with discharge plan updates as hospitalization progresses
[2024-06-10 14:50] LABS: Hematocrit 25.1 % (39.0-52.0); Hemoglobin 9.1 g/dL (13.0-18.0)
[2024-06-10 15:35] LABS: Glucose - Point of Care 161 mg/dl (70-99)
--- NOTE | 2024-06-10 17:11 | PTCARENOTE ---
Medium burgundy stool x1 this shift. RT d/c'd.
Pt sleeping on and off throughout the day. Fidgeting frequently in bed. Reports general malaise. Refused to get OOB today.
PRN Dilaudid given x2 this shift for reported abdominal pain along the incision.
DAVID output 20ml serosanguineous drainage.
Moist cough. Lungs diminished.
All other assessments unchanged.
[2024-06-10 17:35] LABS: Glucose - Point of Care 155 mg/dl (70-99)
[2024-06-10 19:51] LABS: Glucose - Point of Care 179 mg/dl (70-99)
--- NOTE | 2024-06-10 20:00 | PTCARENOTE ---
rec`d pt at 1900. AAOx3, can be anxious at times. SR on monitor. RT PICC flushed and patent w/ TPN and insulin gtt. left FA Iv. scds. inspir wheeze and coarse lung sounds. productive cough. 2L NC POX 94%. rt nare NGT to LIWS draining clear green.
condom cath. midline abdomen incision w/ robi, open to air. pt applies ice pack for discomfort. rt DAVID draining minimal sersang. pt eats ice chips. call pride in reach. safe environment maintained.
[2024-06-10 20:47] LABS: Glucose - Point of Care 153 mg/dl (70-99)
[2024-06-10] MEDS: Parenteral Nutrition, Central 1050 IV (20:51)
[2024-06-10 22:26] LABS: Glucose - Point of Care 113 mg/dl (70-99)
[2024-06-10 23:28] LABS: Glucose - Point of Care 140 mg/dl (70-99)
[2024-06-11] VITALS (31 sets, daily range): BP systolic 91–135; BP diastolic 43–80; PULSE 90–91; O2SAT 93; BMI 34.7
--- NOTE | 2024-06-11 | PTCARENOTE ---
pt reassessed. no changes in pt assessment. glycemic protocol continued.
[2024-06-11] MEDS: DILAUDID 1 MG IV (00:02)
[2024-06-11 00:30] LABS: Glucose - Point of Care 141 mg/dl (70-99)
[2024-06-11] MEDS: UNASYN IV ×4 (00:42→18:45)
[2024-06-11 02:15] LABS: Glucose - Point of Care 136 mg/dl (70-99)
[2024-06-11] MEDS: NOVOLIN R INSULIN INFUSION 100 IV (03:54)
[2024-06-11 04:41] LABS: Glucose - Point of Care 140 mg/dl (70-99)
[2024-06-11 04:47] LABS: % Basophils 0.5 % (0-2); % Eosinophils 2.5 % (0-6); % Immature Granulocytes 5.7 % (0-0.5); % Lymphocytes 14.2 % (20.5-51.1); % Monocytes 7.7 % (1.7-9.3); % Neutrophils 69.4 % (42.2-75.2); Absolute Basophils 0.1 10^3/uL (0-0.2); Absolute Eosinophils 0.3 10^3/uL (0-0.7); Absolute Immature Granulocytes 0.8 10^3/uL (0-0.05); Absolute Lymphocytes 1.9 10^3/uL (1.2-3.4); Absolute Neutrophils 9.1 10^3/uL (1.4-6.5); Hematocrit 23.3 % (39.0-52.0); Hemoglobin 8.3 g/dL (13.0-18.0); Mean Corp Hgb Conc. 35.6 g/dL (33.0-37.0); Mean Corpuscular Hgb 31.2 pg (27.0-31.0); Mean Corpuscular Volume 87.6 fL (80.0-94.0); Mean Platelet Volume 10.3 fL (7.4-10.4); Nucleated Red Blood Cells % 0.7 % (-); Platelet Count 201 10^3/uL (130-400); Red Blood Cell Count 2.66 10^6/uL (4.70-6.10); Red Cell Dist. Width 15.2 % (11.5-14.5); White Blood Cell Count 13.1 10^3/uL (4.8-10.8)
[2024-06-11] MEDS: DILAUDID 0.5 MG IV ×5 (05:20→21:45)
[2024-06-11 05:27] LABS: ALT (SGPT) 38 U/L (0-50); AST (SGOT) 53 U/L (17-59); Alkaline Phosphatase 135 U/L (38-126); Blood Urea Nitrogen 26 mg/dl (9-20); Calcium 8.2 mg/dl (8.4-10.2); Carbon Dioxide 27 mmol/L (22-30); Chloride 119 mmol/L (98-107); Estimated Creatinine Clearance 84 ml/min; Glucose 113 mg/dl (70-99); Phosphorus 3.5 mg/dl (2.5-4.5); Sodium 146 mmol/L (135-145); Total Bilirubin 0.3 mg/dl (0.2-1.3); Total Protein 3.9 g/dl (6.3-8.2); eGFR > 60.00
[2024-06-11] MEDS: PROTONIX 100 IV (05:30)
--- NOTE | 2024-06-11 05:30 | PTCARENOTE ---
pt kicked condom cath off. bed saturated 2x w/ urine. full bedbath given.
[2024-06-11 05:50] LABS: Glucose - Point of Care 104 mg/dl (70-99)
[2024-06-11 06:48] LABS: Glucose - Point of Care 122 mg/dl (70-99)
--- NOTE | 2024-06-11 07:14 | W.PN.INTV ---
Today's Communication / Plan
Recommendations
Advance diet per surgery, can hopefully stop TPN if tolerating
Will be able to wean insulin gtt following discontinuation
Continue to monitor BMs, H&Hs
Abx for complete course
PT/OT, pain control
Can likely transfer back to IMU when off insulin gtt
Assessment
-
68-year-old male with history of duodenal ulcer with gastritis requiring transfusion in 2020, presents with acute onset abdominal pain 06/03. He did not seek medical attention. Symptoms progressed, now presenting to [facility] emergency room. Found
to have perforated duodenal ulcer per imaging. Patient plan to go to the OR per surgery
Acute abdominal pain, 06/03
Admitted 06/06
Perforated duodenal ulcer with free air per imaging
s/p exploratory laparotomy, primary repair of perforated duodenal ulcer with omental pedicle flap 06/06
Acute blood loss anemia from GIB unclear cause
BRBPR
Marginal blood pressure
Leukocytosis
Polycythemia, hemoglobin 19.4 on admission
Elevated lactate
Hyperglycemia
Conditions present prior to admission
5.6 cm distal infrarenal abdominal aortic aneurysm
Hypertension
Diabetes
GERD/history of duodenal ulcer/gastritis
Hospitalized requiring transfusion 2020
History of hepatitis A
Family history of colon cancer
[id number] history of smoking, ongoing
Subpleural emphysema apical predominant per imaging
50 pound weight loss over the past year (per family)
Suspected sleep disordered breathing
Plan
At this time, patient remains stable off pressors
Hb drop noted, receiving transfusions/H&H serially followed
Repeat abdominal imaging did not reveal any evidence of active bleeding --> CT AP today showing no bleed
Postsurgical changes noted
Postoperative EKG with poor R wave progression but no acute findings
Leukocytosis noted
History of diabetes noted
Empiric antibiotics, Zosyn continues
PPI therapy will continue
Maintain n.p.o.--diet advancement per team
Can likely stop TPN
Stop NG tube
Surgery following
Hypertension noted. Likely underlying sepsis
proBNP 462
May need lasix if elevated from blood products
Postoperative EKG unchanged. Patient denies any prior cardiac issues
Patient denies any chest pain
1-2 PPD smoker for >50 years
No known lung disease in past, does have emphysema noted in record
Add nebs PRN
Repeat CXR as he was wheezing this AM
Incentive spirometry
PRN nebs
Out of bed to chair as able
Follow blood sugars. History of diabetes noted
Presently on postoperative fluids, normal saline
TPN to be started per discussion with surgery. PICC line will be placed
BS are still elevated with advancement of TPN
Will start insulin protocol--wean today when off TPN
DVT prophylaxis: Mechanical prophylaxis and pharmacological prophylaxis continue
GI prophylaxis: Remains on Protonix drip
Reviewed with primary service, critical care nursing, nursing, pharmacy, respiratory care, infectious disease
Reviewed with patient
Diagnostic Data
CXR 06/08/24- Satisfactory right PICC. Small bilateral pleural effusions with associated bibasilar probable atelectasis.
CT AP 06/08/24- 1. No foci of contrast extravasation to suggest active gastrointestinal hemorrhage at the time of imaging.
2. Small amount of hyperattenuating fluid within the duodenum, which may represent blood products.
3. Suggestion of mild postoperative ileus.
4. Small amount of free intraperitoneal air, likely postoperative.
5. Small bilateral pleural effusions, with likely bibasilar subsegmental atelectasis.
6. Abdominal aortic aneurysm, measuring 5.7 cm in greatest orthogonal dimension.
7. Multifocal arterial stenoses within both common iliac, external iliac, and common femoral arteries. If there is clinical suspicion of significant peripheral arterial disease, consider ankle-brachial indices.
CT CAP 06/06/24- Diffuse duodenitis. Duodenal perforation. No focal collection or abscess. Discussed with Dr. Rodgers at 11:48 AM on 06/06/2024, and reviewed with Dr. Sanchez.
Mid to distal infrarenal abdominal aortic fusiform aneurysm without secondary complications. No evidence to suggest impending rupture. No dissection.
Fatty infiltration of liver. Bilateral renal cysts. No obstructive uropathy.
Mild diverticulosis without acute diverticulitis. Esophageal wall thickening. Correlate clinically with symptoms of esophagitis.
Mild emphysema. Calcified granuloma in the right lower lobe.
2.3 mm noncalcified nodule in the anterolateral inferior right upper lobe. Consider follow-up in one year if the patient is at increased risk.
-----
Critical Care time 35 mins -- The patient is admitted for acute critical illness for the treatment of vital organ failure and/or prevention of further life-threatening conditions. Total care includes time spent in review of history, physical exam,
medications, hemodynamic/ventilator parameters, laboratory data, imaging and discussion with house staff, pharmacy, respiratory therapy, public health specialist, and nursing.
Subjective Dataa
Subjective Data
Date of Service:
Date of Service: June 11, 2024
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
Subjective:
no acute events ON, remains on insulin gtt
bloody BMs ongoing, but improving in amount
Objective Data
Data Reviewed
Vital Signs / I&O / Oxygen:
Vital Signs
Temp Pulse Resp BP Pulse Ox
99.1 F 90 20 110/56 96
06/11/24 04:00 06/11/24 05:04 06/11/24 05:04 06/11/24 05:04 06/11/24 05:04
Intake and Output
06/10/24 06/11/24 06/12/24
06:59 06:59 06:59
Intake Total 3863 / 3957 2712.4 / 2712.4
Output Total 3110 / 3950 3680 / 3680
Balance 753 / 7 -967.6 / -967.6
SaO2 96
Nasal Cannula flow liters per 2
minute
Physical Exam
General: Comfortable
HEENT: Normocephalic, Anicteric and Moist Mucous Membranes
Cardiovascular: S1-S2, Regular Rhythm, Murmur (n), Rub (n) and Peripheral Edema (n)
Respiratory: Wheeze (Mild scattered), Crackles (n), Rhonchi (n), Stridor (n) and Other (Mild splinting with abdominal pain)
GI: Soft, Non Distended, Tender, NG Tube and Other (DAVID drain, abdominal dressing in place)
Neurology: Awake, Alert, Oriented, AO x 3 and No Motor Deficits
Skin: Cyanosis (n), Jaundice (n) and Rash (n)
Labs/Micro/Reports
Lab Data
06/11/24 04:19
Microbiology
06/06/24 11:50 Blood/Venous Blood Culture - Preliminary
No Growth in 4 days- Final report to follow
06/06/24 11:50 Blood/Venous Blood Culture - Preliminary
No Growth in 4 days- Final report to follow
06/06/24 14:11 Peritoneal Fluid Anaerobic Culture - Preliminary
NO ANAEROBES ISOLATED
06/06/24 14:11 Abdomen Wound Culture - Preliminary
No growth
06/06/24 14:11 Abdomen Gram Stain - Preliminary
[2024-06-11 07:43] LABS: Glucose - Point of Care 120 mg/dl (70-99)
[2024-06-11] MEDS: NICODERM TRANSDERMAL 21 MG TRANSDERM (07:48)
[2024-06-11] MEDS: PRED FORTE 1% EYE DROPS 1 DROP LEFT EYE (07:48)
--- NOTE | 2024-06-11 08:06 | PTCARENOTE ---
report received, assessments per worklist. patient drowsy, lethargic. limited willingness to participate in plan of care. monitor nsr, sinus tach. right picc patent, glycemic per work list. lungs with coarse breath sounds, expiratory wheezing. moist
non productive cough. encouraged use of acapella, I/S. patient with hypersensitivity to touch and stimuli. abdomen soft, hyperactive bowel sounds. ngt irrigated per orders. condom cath in place. yellow urine. generalized anasarca. call pride in reach
[2024-06-11 08:45] LABS: Glucose - Point of Care 120 mg/dl (70-99)
--- NOTE | 2024-06-11 08:51 | PN.DE.MGMTRT ---
Insulin Management
- -
06/11/2024 Diabetes Management Consult Follow up
Patient admitted 06/06 with abdominal pain, perforated viscus, perforated duod. ulcer. PMH type 2 diabetes, peptic ulcer. Prior to admission was taking basaglar 20 units hs, no other diabetes medications. A1C 7.5% cr .8 eGFR >60. Patient normally
sees Kevin Laws PA-C and Dr. Desai for diabetes management.
POD 5 s/p exploratory lap and repair of perforated ulcer/viscus.
Patient is awake, alert and oriented in bed. He currently is NPO has an NG tube and is receiving TPN. He was placed on glycemic protocol 06/10, glucose range 113 to 155 requiring up to 5 units of insulin per hour. Discussed with ICU team TPN to be
stopped when this bag completed and diet to be started. Will start HS lantus 20 units @ 8PM tonight, drip off at 10pm. 06/12 lantus 20 units @ HS. Moderate corrective insulin to start AC tomorrow.
Patient has barbara CGM.
I spoke with patients nurse regarding diabetes management.
Diabetes History
- -
Type of Diabetes: 2 requiring insulin
Pre-Admission Diabetes Regimen
06/11/24
04:19
Creatinine 0.9
Lab Results
Hemoglobin A1c 7.5 % (4.0-5.6) H 06/07/24 03:22
Insulin Pump Settings
IP Diabetes Regimen
06/10/24 06/10/24 06/10/24
11:10 12:42 14:20
Glucose
POC Glucose 220 H 135 H 140 H
06/10/24 06/10/24 06/10/24
15:23 17:24 19:38
Glucose
POC Glucose 161 H 155 H 179 H
06/10/24 06/10/24 06/10/24
20:35 22:15 23:17
Glucose
POC Glucose 153 H 113 H 140 H
06/11/24 06/11/24 06/11/24
00:18 02:03 04:19
Glucose 113 H
POC Glucose 141 H 136 H
06/11/24 06/11/24 06/11/24
04:29 05:39 06:36
Glucose
POC Glucose 140 H 104 H 122 H
06/11/24 06/11/24
07:32 08:34
Glucose
POC Glucose 120 H 120 H
Patient Education
--- NOTE | 2024-06-11 08:57 | PTCARENOTE ---
patient had very large loose burgundy stool. c/o incisional pain, anxious. see MAR
--- NOTE | 2024-06-11 10:21 | W.PN.GS2 ---
Today's Communication / Plan
-
`
Assessment / Plan
-
Assessment: 68-year-old male POD #5 status post ex lap primary repair perforated giant duodenal ulcer with omental pedicle flap to buttress primary closure; washout large contaminated retroperitoneal/pancreatic perforation site.
AFVSS
Acute blood loss anemia
- maroon/bloody stools improving
- hgb drop 9.8 to 6.6 -> 2 units yesterday up to 9.1, now 8,3
- NGT bilious and non-bloody outputs
- DAVID with light SSF
followup CT angio 06/10 again negative for localizing source of GIB - ? upper from ulcer/repair site
Operative cultures: Gram-positive cocci on Gram stain, no growth; blood cx negative
Plan: d/c NGT okay for clear liquid diet
stop TPN as starting PO intake and difficulty controlling glucose with TPN
follow H&H and transfuse as needed
Maintain DAVID
ABx: unasyn - ID following
Lovenox for VTE prophylaxis -> on hold d/t GIB
PPI BID - okay to stop gtt
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
Subjective Data
-
Date of Service: June 11, 2024
pt seen and examined
denies significant abdominal pain
BMs now black not burgundy or bright red blood
Objective Data
-
Intake and Output
06/10/24 06/11/24 06/12/24
06:59 06:59 06:59
Intake Total 3863 / 3957 2712.4 / 2771.4 207 / 207
Output Total 3110 / 3950 3680 / 3680 900 / 900
Balance 753 / 7 -967.6 / -908.6 -693 / -693
Intake:
IV fluids (Total) 1160 / 1210 340.4 / 355.4 45 / 45
0.45%NaCl 1,000 ml @ 40 mls/hr 880 / 920 80 / 80
IV .Q24H ENRIQUE Rx#:[id number]
Insulin 60.4 / 65.4 15 / 15
Nss 1,000 ml @ 150 mls/hr IV . 40 / 40
Q6H40M ENRIQUE Rx#:[id number]
Protonix 240 / 250 200 / 210 30 / 30
IV piggybacks 1080 / 1080 250 / 250
TPN/PPN 1043 / 1087 1092 / 1136 132 / 132
Amount instilled into GI Tube ( 80 / 80 530 / 530 30 / 30
Total)
Maiden Sump 80 / 80 530 / 530 30 / 30
Blood Product Amount Infused ( 500 / 500 500 / 500
mL)
Packed Rbc Leukoreduced Unit 0 / 0 250 / 250
[id number]
Packed Rbc Leukoreduced Unit 250 / 250
[id number]
Packed Rbc Leukoreduced Unit 250 / 250
[id number]
Packed Rbc Leukoreduced Unit 250 / 250
[id number]
Output:
Liquid stool amount 150 / 150
Rectum 150 / 150
Drain Output (Total) 85 / 125 80 / 80
Right Abdomen Piotr-Tobias 85 / 125 80 / 80
Gastrointestinal tube output ( 350 / 350 400 / 400
Total)
Maiden Sump 350 / 350 400 / 400
Urine, Voided 2675 / 3475 3200 / 3200 750 / 750
Other:
How many times incontinent 2
SATURATED amount urine
Number of unmeasured liquid
stools
Rectum 2
Vital Signs
Temp Pulse Resp BP Pulse Ox
98.4 F 94 28 132/66 93
06/11/24 08:13 06/11/24 09:00 06/11/24 09:00 06/11/24 09:00 06/11/24 09:00
Lab Results
06/11/24 04:19
Calcium 8.2 mg/dl (8.4-10.2) L 06/11/24 04:19
Phosphorus 3.5 mg/dl (2.5-4.5) 06/11/24 04:19
Magnesium 2.0 mg/dl (1.6-2.3) 06/11/24 04:19
Total Bilirubin 0.3 mg/dl (0.2-1.3) 06/11/24 04:19
AST 53 U/L (17-59) 06/11/24 04:19
ALT 38 U/L (0-50) 06/11/24 04:19
Alkaline Phosphatase 135 U/L (38-126) H 06/11/24 04:19
Total Protein 3.9 g/dl (6.3-8.2) L D 06/11/24 04:19
Albumin 2.0 g/dl (3.5-5.0) L 06/11/24 04:19
Physical Exam
-
NAD AAOx3
ABD: soft, ND, nontender
incision with glue dressing
DAVID with light SSF, nonpurulent, non bilious
[2024-06-11 10:43] LABS: Glucose - Point of Care 103 mg/dl (70-99)
--- NOTE | 2024-06-11 10:53 | PTCARENOTE ---
patient had another large dark burgundy liquid stool. 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 protonix gtt d/c. ngt removed by Dr Sanchez. cxr taken. oob to chair with assist of PT/OT. call pride in reach
[2024-06-11] MEDS: NOVOLOG FLEXPEN 4 UNITS SC ×2 (11:17→17:39)
[2024-06-11] MEDS: NSS (PRESERVATIVE FREE) 10 ML IV ×2 (11:23→20:30)
[2024-06-11] MEDS: PROTONIX IV 40 MG IV ×2 (11:23→20:29)
--- NOTE | 2024-06-11 11:54 | PTCARENOTE ---
reassessed. no changes. tolerated clear liquid lunch. medicated with dilaudid per prn order. remains oob, call pride in reach
[2024-06-11] MEDS: DUONEB 3 ML INH ×2 (12:12→23:45)
--- NOTE | 2024-06-11 12:14 | W.PN.HOSP.TC ---
Today's Communication/Plan
-
monitor vitals
see plan
weam o2 as tolerated
CXR
cw abx per ID
Monitor leukocytosis
TPN per surgery; if able to be started on PO then can stop TPN but will defer to surgery
monitor sodium
monitor hgb
Assessment / Plan
Assessment / Plan
General: NGT; no acute distress
Chest: Decreased breath sounds bilaterally
Abdomen: Surgical wound, DAVID drain, very diminished bowel sounds
Extremities: No edema
ASSURANCE ASSISTANT: Non focal exam
Psych: Calm
Repeat CT 06/08/2024-no contrast extravasation or active bleeding. Small amount of hyperattenuating fluid in the duodenum. Mild postop ileus. Small amount of free intraperitoneal air likely postoperative. Small bilateral pleural effusions with
bibasilar subsegmental atelectasis. Abdominal arctic aneurysm 5.7 cm. Multifocal arterial stenosis
#Sepsis secondary to perforated duodenal ulcer resulting peritonitis
Status post OR 06/06 with exploratory laparotomy, primary repair perforated duodenal ulcer with omental pedicle flap 06/06
H/O GERD/history of duodenal ulcer/gastritis
Blood culture NGTD
CT angio 06/08 negative for bleed
ID following, antibiotics changed to Unasyn. Continue to monitor culture
OR with gram-positive cocci
NPO per surgery, hold p.o. meds
Continue with PPI
Monitor DAVID drain
NG tube with bilious send on bloody, on TPN per surgery.if started on PO then can stop TPN especially since requiring insulin gtt for his sugars.
In ICU
Pain control
NGT per surgery
#Lactic acidosis
resolved
Acute hypoxic respiratory insufficiency
Chest x-ray pending
Monitor
#Anemia- Due to acute blood loss anemia
Bright red blood per rectum overnight 06/10
2 unit PRBC 06/09, 3 units 06/10; hemoglobin 6.6 7/10; monitor. CTA 06/10 without any acute GI bleeding. now no more bleeding episodes; hemoglobin 8.3. Continue to monitor
Continue to monitor hemoglobin with blood transfusion
Mild hyponatremia
Monitor, should be able to improve once started on p.o.
#History of hypertension
Hold lisinopril
Hydralazine as needed
#Diabetes mellitus
Since n.p.o., cw glargine at lower dose, Accu-Cheks
Now on insulin drip
Diabetes HOSPITAL CLEANER following
Continue sliding scale
A1c 7.5
Hypophosphatemia
Replete
#History of smoking
Cessation advised
Nicotine patch
#Hypocalcemia-Check Vit D and replace calcium
#Abdominal aortic aneurysm, measuring 5.7 cm in greatest orthogonal dimension.
#PAD-Multifocal arterial stenoses within both common iliac, external iliac, and common femoral arteries.
HO when stable
#Mild LFT elevation-Monitor
#50 pound weight loss over the past year -Needs OP work up
#Hepatic Steatosis
#Hypoalbuminemia
#Diverticulosis
#History of hepatitis A
#2.3 mm noncalcified nodule in the anterolateral inferior right upper lobe-OP follow up
#Nutrition- TPN being started
#DVT prophylaxis-Lovenox
#Full code
I spent a total of 52 minutes with the patient or on the floor. More than 50% of this time involved counseling and coordination of care.
Anticipated Discharge: > 48 hours
Subjective/Interval History
-
Date of Service: June 11, 2024
has some pain
Objective Data
-
Labs:
Laboratory Results
06/11/24
04:19
WBC 13.1 H
Hgb 8.3 L
Hct 23.3 L
Plt Count 201
Sodium 146 H
Potassium 4.0
Chloride 119 H
Carbon Dioxide 27
BUN 26 H
Creatinine 0.9
Glucose 113 H
Calcium 8.2 L
Total Bilirubin 0.3
AST 53
ALT 38
Alkaline Phosphatase 135 H
Vital Signs:
Vital Signs
Temp Pulse Resp BP Pulse Ox
98.4 F 92 20 108/63 93
06/11/24 08:13 06/11/24 11:00 06/11/24 11:00 06/11/24 11:00 06/11/24 11:52
I&O
06/10/24 06/11/24 06/12/24
06:59 06:59 06:59
Intake Total 3863 / 3957 2712.4 / 2771.4 1132.4 / 1132.4
Output Total 3110 / 3950 3680 / 3680 1150 / 1150
Balance 753 / 7 -967.6 / -908.6 -17.6 / -17.6
[2024-06-11 12:48] LABS: Glucose - Point of Care 134 mg/dl (70-99)
[2024-06-11 13:03] LABS: Hematocrit 22.1 % (39.0-52.0); Hemoglobin 7.7 g/dL (13.0-18.0)
--- NOTE | 2024-06-11 13:20 | PTCARENOTE ---
Took over care of pt from NANNETTE Ribera. Pt OOB in chair with TPN and Insulin gtt infusing. One small burgundy stool on bedpan.
--- NOTE | 2024-06-11 13:36 | W.PN.ID1 ---
Date of Service
Date of Service: June 11, 2024
Today's Communication
Continue antibiotics. Trend white count.
Assessment / Plan
# Perforated giant duodenal ulcer with peritonitis
- 06/06 s/p ex-lap, primary repair, perforated duodenal ulcer with omental pedicle flap.
- OR gram stain: moderate GPC, cx neg to date; Anaerobic cx - NG
- Continue with Unasyn (d#6 abx)
# leukosytosis
- trending up past 48h
- May require further imaging if trend persists.
# Post-op ileus
- NG removed. Diet being advanced.
# Anemia (acute blood loss) with maroon/bloody stools.
# Tobacco use disorder
# DM
# AAA
#Additional Past Medical History:
Duodenal ulcer
DM
HTN
GERD
Abdominal aortic aneurysm 5.7 cm
Chief Complaint
-: Other (Perforated viscus)
Subjective / Review of Systems
Patient seen and examined. NG tube has been removed. Diet advancing. Denies pain
Review of Systems: No Fever and No Chills
Vital Signs / Physical Exam
Vital Signs
Vital Signs
Temp Pulse Resp BP Pulse Ox
97.4 F 99 18 112/58 93
06/11/24 12:19 06/11/24 13:00 06/11/24 13:00 06/11/24 13:00 06/11/24 13:00
Physical Exam
Constitutional: No Acute Distress, Comfortable, Non-toxic and Other (Sitting up in chair.)
Head: Other
Eyes: Sclera Anicteric
Cardiovascular: Regular Rate and S1/S2; Negative S3/S4
Pulmonary: Other (decreased BS at bases)
Gastrointestinal: Soft, Distended and Decreased Bowel Sounds
Extremities: Edema
Neurological: Awake, Alert, Oriented and Other (drowsy)
Psychological: Calm
Lines: PICC
Objective Data
Lab Data
Lab Results
06/11/24 12:46
06/11/24 04:19
PT 21.8 Sec (11.4-14.6) H 06/08/24 00:12
INR 1.88 06/08/24 00:12
APTT 42.4 Sec (23.4-35.0) H 06/08/24 00:12
Estimated Creat Clear 84 ml/min 06/11/24 04:19
Lactic Acid 1.2 mmol/L (0.7-2.0) 06/08/24 02:04
Total Bilirubin 0.3 mg/dl (0.2-1.3) 06/11/24 04:19
AST 53 U/L (17-59) 06/11/24 04:19
ALT 38 U/L (0-50) 06/11/24 04:19
Alkaline Phosphatase 135 U/L (38-126) H 06/11/24 04:19
Most recent labs reviewed.
Micro Results:
06/06/24 11:50 Blood Culture - Final
Blood/Venous No Growth - Final Report
06/06/24 11:50 Blood Culture - Final
Blood/Venous No Growth - Final Report
06/06/24 14:11 Wound Culture - Final
Abdomen No growth
Gram Stain - Final
06/06/24 14:11 Anaerobic Culture - Final
Peritoneal Fluid NO ANAEROBES ISOLATED
06/08/24 CT a/p: 1. No foci of contrast extravasation to suggest active gastrointestinal hemorrhage at the time of imaging.
2.Small amount of hyperattenuating fluid within the duodenum, which may represent blood products.
3. Suggestion of mild postoperative ileus.
4. Small amount of free intraperitoneal air, likely postoperative.
5. Small bilateral pleural effusions, with likely bibasilar subsegmental atelectasis.
6. Abdominal aortic aneurysm, measuring 5.7 cm in greatest orthogonal dimension.
7. Multifocal arterial stenoses within both common iliac, external iliac, and common femoral arteries. If there is clinical suspicion of significant peripheral arterial disease, consider ankle-brachial indices.
06/06/24 CTA C/A/P: Diffuse duodenitis. Duodenal perforation. No focal collection or abscess. Discussed with Dr. Rodgers at 11:48 AM on 06/06/2024, and reviewed with Dr. Sanchez. Mid to distal infrarenal abdominal aortic fusiform aneurysm without
secondary complications. No evidence to suggest impending rupture. No dissection.
[2024-06-11 14:41] LABS: Glucose - Point of Care 113 mg/dl (70-99)
--- NOTE | 2024-06-11 15:12 | CM ---
CM following re: discharge planning.
Reviewed pt's chart, met with pt.
Pt is a POD #5 status post ex lap primary repair perforated giant duodenal ulcer with omental pedicle flap to buttress primary closure. Per Rounds meeting, Maintain n.p.o., continue NG tube decompression, maintain DAVID, Renewed TPN , continue
supportive care.
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
PT and OT evaluations noted - SNF vs home PT recommended. CM discussed it with the pt and pt preferred home PT and [facility] is chosen.
A referral to [facility] made.
D/C plan: home with [facility] and family support. Family to transport at discharge.
CM will follow with discharge plan updates as hospitalization progresses
[2024-06-11 17:01] LABS: Glucose - Point of Care 108 mg/dl (70-99)
[2024-06-11 18:58] LABS: Glucose - Point of Care 190 mg/dl (70-99)
--- NOTE | 2024-06-11 19:14 | PTCARENOTE ---
two medium to large burgundy stools. Pt ambulates to bathroom with 1 assist and walker.
[2024-06-11 20:17] LABS: Hematocrit 19.9 % (39.0-52.0); Hemoglobin 6.9 g/dL (13.0-18.0)
[2024-06-11 20:22] LABS: Glucose - Point of Care 148 mg/dl (70-99)
[2024-06-11 20:28] LABS: Blood Urea Nitrogen 26 mg/dl (9-20); Calcium 8.1 mg/dl (8.4-10.2); Carbon Dioxide 24 mmol/L (22-30); Chloride 113 mmol/L (98-107); Estimated Creatinine Clearance 75 ml/min; Glucose 121 mg/dl (70-99); Potassium 3.6 mmol/L (3.5-5.1); Sodium 143 mmol/L (135-145); eGFR > 60.00
[2024-06-11] MEDS: LANTUS 0.2 UNITS SC (20:29)
--- NOTE | 2024-06-11 20:30 | PTCARENOTE ---
rec`d pt at 1900. AAOx3, drowsy and anxious at times. ST w/ several PVCs on monitor. labs checked. hgb low. 1 unit ordered. RT PICC flushed and patent w/ TPN and insulin gtt. left FA Iv. scds. coarse lung sounds. productive cough. 2L NC POX 94%. pt
uses urinal-frequently. midline abdomen incision w/ robi, open to air. c/d/i. no redness. round, obese belly. soft. pt applies ice pack for discomfort. rt DAVID draining minimal sersang. pt advanced to clears. starting to have appetite. call
pride in reach. safe environment maintained.
--- NOTE | 2024-06-11 22:29 | PTCARENOTE ---
insulin gtt and tpn off per MD order. 1 unit of blood transfusing. pt back to SR on monitor.
[2024-06-12] VITALS (17 sets, daily range): BP systolic 96–148; BP diastolic 49–96; PULSE 84–85; O2SAT 95–96; BMI 34.8
[2024-06-12] MEDS: UNASYN IV ×4 (01:00→17:38)
[2024-06-12 04:00] LABS: % Basophils 0.5 % (0-2); % Eosinophils 1.8 % (0-6); % Immature Granulocytes 8.1 % (0-0.5); % Lymphocytes 15.7 % (20.5-51.1); % Monocytes 10.7 % (1.7-9.3); % Neutrophils 63.2 % (42.2-75.2); Absolute Basophils 0.1 10^3/uL (0-0.2); Absolute Eosinophils 0.2 10^3/uL (0-0.7); Absolute Immature Granulocytes 0.9 10^3/uL (0-0.05); Absolute Lymphocytes 1.8 10^3/uL (1.2-3.4); Absolute Monocytes 1.2 10^3/uL (0.1-0.6); Hematocrit 22.3 % (39.0-52.0); Hemoglobin 7.7 g/dL (13.0-18.0); Mean Corp Hgb Conc. 34.5 g/dL (33.0-37.0); Mean Corpuscular Hgb 31.2 pg (27.0-31.0); Mean Corpuscular Volume 90.3 fL (80.0-94.0); Mean Platelet Volume 10.4 fL (7.4-10.4); Nucleated Red Blood Cells % 0.4 % (-); Platelet Count 185 10^3/uL (130-400); Red Blood Cell Count 2.47 10^6/uL (4.70-6.10); White Blood Cell Count 11.1 10^3/uL (4.8-10.8)
--- NOTE | 2024-06-12 04:00 | PTCARENOTE ---
rectal trumpet placed for liquid stool.
[2024-06-12 04:12] LABS: INR 1.26; PT 15.9 Sec (11.4-14.6)
[2024-06-12 04:13] LABS: APTT 33.8 Sec (23.4-35.0)
[2024-06-12 04:15] LABS: ALT (SGPT) 49 U/L (0-50); AST (SGOT) 69 U/L (17-59); Albumin 2.1 g/dl (3.5-5.0); Alkaline Phosphatase 246 U/L (38-126); Blood Urea Nitrogen 22 mg/dl (9-20); Calcium 7.7 mg/dl (8.4-10.2); Carbon Dioxide 25 mmol/L (22-30); Chloride 113 mmol/L (98-107); Estimated Creatinine Clearance 83 ml/min; Glucose 158 mg/dl (70-99); Potassium 3.6 mmol/L (3.5-5.1); Sodium 142 mmol/L (135-145); Total Bilirubin 0.6 mg/dl (0.2-1.3); Total Protein 4.1 g/dl (6.3-8.2); eGFR > 60.00
[2024-06-12] MEDS: DILAUDID 0.5 MG IV (05:14)
--- NOTE | 2024-06-12 07:16 | W.PN.INTV ---
Today's Communication / Plan
Recommendations
Doing well, tolerating diet advancement
Off TPN
Abx continued
Nebs PRN, encourage PT/OT
Can transfer to tele, we will sign off upon transfer
Assessment
-
68-year-old male with history of duodenal ulcer with gastritis requiring transfusion in 2020, presents with acute onset abdominal pain 06/03. He did not seek medical attention. Symptoms progressed, now presenting to [facility] emergency room. Found
to have perforated duodenal ulcer per imaging. Patient plan to go to the OR per surgery
Acute abdominal pain, 06/03
Admitted 06/06
Perforated duodenal ulcer with free air per imaging
s/p exploratory laparotomy, primary repair of perforated duodenal ulcer with omental pedicle flap 06/06
Acute blood loss anemia from GIB unclear cause
BRBPR
Marginal blood pressure
Leukocytosis
Polycythemia, hemoglobin 19.4 on admission
Elevated lactate
Hyperglycemia
Conditions present prior to admission
5.6 cm distal infrarenal abdominal aortic aneurysm
Hypertension
Diabetes
GERD/history of duodenal ulcer/gastritis
Hospitalized requiring transfusion 2020
History of hepatitis A
Family history of colon cancer
[id number] history of smoking, ongoing
Subpleural emphysema apical predominant per imaging
50 pound weight loss over the past year (per family)
Suspected sleep disordered breathing
Plan
At this time, patient remains stable off pressors
Hb drop noted, receiving transfusions/H&H serially followed--resolved
Repeat abdominal imaging did not reveal any evidence of active bleeding --> CT AP showing no bleed
BMs are normalizing
Follow H&H as needed
Postsurgical changes noted
Postoperative EKG with poor R wave progression but no acute findings
Leukocytosis noted
History of diabetes noted
Empiric antibiotics, Zosyn continues
PPI therapy will continue
Diet advancement, on clears
Off TPN
Hypertension noted. Likely underlying sepsis
proBNP 462
May need lasix if elevated from blood products
Postoperative EKG unchanged. Patient denies any prior cardiac issues
Patient denies any chest pain
1-2 PPD smoker for >50 years
No known lung disease in past, does have emphysema noted in record
Continue nebs PRN
Repeat CXR as he was wheezing this AM--diffuse interstitial pattern likely representing volume
Can trial diuresis if needed, UO slows
Incentive spirometry
Out of bed to chair as able
Follow blood sugars. History of diabetes noted
Presently on postoperative fluids, normal saline
TPN to be started per discussion with surgery. PICC line will be placed
BS are still elevated with advancement of TPN
Will start insulin protocol--wean today when off TPN
DVT prophylaxis: Mechanical prophylaxis and pharmacological prophylaxis continue
GI prophylaxis: Remains on Protonix drip
Reviewed with primary service, critical care nursing, nursing, pharmacy, respiratory care, infectious disease
Reviewed with patient
Diagnostic Data
CXR 06/08/24- Satisfactory right PICC. Small bilateral pleural effusions with associated bibasilar probable atelectasis.
CT AP 06/08/24- 1. No foci of contrast extravasation to suggest active gastrointestinal hemorrhage at the time of imaging.
2. Small amount of hyperattenuating fluid within the duodenum, which may represent blood products.
3. Suggestion of mild postoperative ileus.
4. Small amount of free intraperitoneal air, likely postoperative.
5. Small bilateral pleural effusions, with likely bibasilar subsegmental atelectasis.
6. Abdominal aortic aneurysm, measuring 5.7 cm in greatest orthogonal dimension.
7. Multifocal arterial stenoses within both common iliac, external iliac, and common femoral arteries. If there is clinical suspicion of significant peripheral arterial disease, consider ankle-brachial indices.
CT CAP 06/06/24- Diffuse duodenitis. Duodenal perforation. No focal collection or abscess. Discussed with Dr. Rodgers at 11:48 AM on 06/06/2024, and reviewed with Dr. Sanchez.
Mid to distal infrarenal abdominal aortic fusiform aneurysm without secondary complications. No evidence to suggest impending rupture. No dissection.
Fatty infiltration of liver. Bilateral renal cysts. No obstructive uropathy.
Mild diverticulosis without acute diverticulitis. Esophageal wall thickening. Correlate clinically with symptoms of esophagitis.
Mild emphysema. Calcified granuloma in the right lower lobe.
2.3 mm noncalcified nodule in the anterolateral inferior right upper lobe. Consider follow-up in one year if the patient is at increased risk.
-----
Critical Care time 35 mins -- The patient is admitted for acute critical illness for the treatment of vital organ failure and/or prevention of further life-threatening conditions. Total care includes time spent in review of history, physical exam,
medications, hemodynamic/ventilator parameters, laboratory data, imaging and discussion with house staff, pharmacy, respiratory therapy, head screen worker, and nursing.
Subjective Dataa
Subjective Data
Date of Service:
Date of Service: June 12, 2024
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
Subjective:
no acute events ON, remains off pressors
bleeding has improved, hb stable
BMs are normalizing
on clear diet
Objective Data
Data Reviewed
Vital Signs / I&O / Oxygen:
Vital Signs
Temp Pulse Resp BP Pulse Ox
99.3 F 85 22 109/66 94
06/12/24 03:03 06/12/24 05:00 06/12/24 05:00 06/12/24 05:00 06/12/24 05:00
Intake and Output
06/11/24 06/12/24 06/13/24
06:59 06:59 06:59
Intake Total 2712.4 / 2771.4 2432.8 / 2432.8
Output Total 3680 / 3680 2485 / 2485
Balance -967.6 / -908.6 -52.2 / -52.2
SaO2 94
Nasal Cannula flow liters per 2
minute
Physical Exam
General: Comfortable
HEENT: Normocephalic, Anicteric and Moist Mucous Membranes
Cardiovascular: S1-S2, Regular Rhythm, Murmur (n), Rub (n) and Peripheral Edema (n)
Respiratory: Wheeze (Mild scattered), Crackles (n), Rhonchi (n), Stridor (n) and Other (Mild splinting with abdominal pain)
GI: Soft, Non Distended, Tender and Other (abdominal dressing in place)
Neurology: Awake, Alert, Oriented, AO x 3 and No Motor Deficits
Skin: Cyanosis (n), Jaundice (n) and Rash (n)
Labs/Micro/Reports
Lab Data
06/12/24 03:46
06/12/24 03:46
Laboratory Results
06/12/24
03:46
PT 15.9 H
INR 1.26
APTT 33.8
Microbiology
06/06/24 11:50 Blood/Venous Blood Culture - Final
No Growth - Final Report
06/06/24 11:50 Blood/Venous Blood Culture - Final
No Growth - Final Report
06/06/24 14:11 Abdomen Wound Culture - Final
No growth
06/06/24 14:11 Abdomen Gram Stain - Final
06/06/24 14:11 Peritoneal Fluid Anaerobic Culture - Final
NO ANAEROBES ISOLATED
[2024-06-12] MEDS: NOVOLOG FLEXPEN-MODERATE RESISTANCE 1 UNITS SC ×2 (07:48→11:39)
[2024-06-12] MEDS: NOVOLOG FLEXPEN SC ×2 (07:48→11:39)
--- NOTE | 2024-06-12 08:00 | PN.DE.MGMTRT ---
Insulin Management
- -
06/12/2024: Diabetes Management Follow up
Patient admitted 06/06 with abdominal pain, perforated viscus, perforated duodenal ulcer-->exploratory lap and repair of perforated ulcer/viscus.
PMH: PUD, T2DM, was taking Basaglar 20 units hs only INSPECTOR GLASS OR MIRROR, no other diabetes medications. A1C 7.5% Cr 0.8 eGFR >60. Patient normally sees Kevin Laws PA-C and Dr. Desai for diabetes management and uses a CGM- [place] for glucose monitoring at home.
Patient is awake, alert and oriented, resting in bed, offers no complaints, able to discuss diabetes management
POD# 6 s/p exploratory lap and repair of perforated ulcer/viscus.
Transitioned off glycemic protocol to HS Lantus yesterday. He is now on clear liquid diet and off TPN.
Glucose stable without Excursions, fasting 158 this AM
Will start low dose Glucotrol 2.5mg BID, discussed with pt and he was agreeable.
Cont Lantus 20 units @ HS and low corrective with meals
Pt uses a CGM- [place] for glucose monitoring at home.
Diabetes History
- -
Type of Diabetes: 2 requiring insulin
Pre-Admission Diabetes Regimen
06/11/24 06/12/24
20:01 03:46
Creatinine 1.0 0.9
Lab Results
Hemoglobin A1c 7.5 % (4.0-5.6) H 06/07/24 03:22
Insulin Pump Settings
IP Diabetes Regimen
06/11/24 06/11/24 06/11/24
08:34 10:33 12:37
Glucose
POC Glucose 120 H 103 H 134 H
06/11/24 06/11/24 06/11/24
14:30 16:50 18:46
Glucose
POC Glucose 113 H 108 H 190 H
07/11/24 07/11/24 07/12/24
20:01 20:09 03:46
Glucose 121 H 158 H
POC Glucose 148 H
Patient Education
[2024-06-12 08:02] LABS: Glucose - Point of Care 166 mg/dl (70-99)
[2024-06-12] MEDS: NSS (PRESERVATIVE FREE) 10 ML IV ×2 (08:48→19:49)
[2024-06-12] MEDS: GLUCOTROL 2.5 MG PO ×2 (08:48→17:38)
[2024-06-12] MEDS: PROTONIX IV 40 MG IV ×2 (08:48→19:49)
[2024-06-12] MEDS: NICODERM TRANSDERMAL 21 MG TRANSDERM (08:48)
[2024-06-12] MEDS: PRED FORTE 1% EYE DROPS 1 DROP LEFT EYE (08:49)
--- NOTE | 2024-06-12 09:45 | W.PN.GS2 ---
Addendum entered and electronically signed by Benson Talavera MD 06/12/24 11:09:
Patient seen and examined.
No major complaints. Denies worsening abdominal pain. No nausea or vomiting. Difficult to discern if having any dizziness or lightheadedness. No bright red bloody bowel movements.
Gen: NAD
Abd: soft, mild distension, NT, incision c/d/i - no erythema, ecchymosis or drainage, robi with well approximated skin, DAVID with light SSF, nonpurulent, non bilious
Rectal: tube with melanotic liquid stools
Patient is a 68-year-old male POD #6 status post ex lap primary repair perforated giant duodenal ulcer with omental pedicle flap to buttress primary closure; washout large contaminated retroperitoneal/pancreatic perforation site.
AFVSS
Acute blood loss anemia
Hgb dropped to 6.9 yesterday pm now 7.7 s/p one unit of pRBC's (7 total this hospitalization)
Clinically stable. Drifts in Hb either equilibration or continued mild ooze. Followup CT angio 06/10 again negative for localizing source of GIB - ? upper from ulcer/repair site. Continue medical management, trial TXA.
- Tolerating CLD
- Trial of 1 g TXA
- Continue DAVID
- ID onboard, continue Unasyn
- Can consider bleeding scan if continued issues over the weekend
Original Note:
Today's Communication / Plan
-
follow h/h
clear liquids
Assessment / Plan
-
Assessment: 68-year-old male POD #6 status post ex lap primary repair perforated giant duodenal ulcer with omental pedicle flap to buttress primary closure; washout large contaminated retroperitoneal/pancreatic perforation site.
AFVSS
Acute blood loss anemia
- rectal tube in place with dark/coffee ground color to stools
- hgb dropped to 6.9 yesterday pm now 7.7 s/p one unit of pRBC's (7 total this hospitalization)
- tolerating CLD
- DAVID with light SSF
followup CT angio 06/10 again negative for localizing source of GIB - ? upper from ulcer/repair site
Operative cultures: Gram-positive cocci on Gram stain, no growth; blood cx negative
Plan: Continue clear liquids as tolerated
tentatively to continue TPN, discussed glucose control with hospitalist
follow H&H and transfuse as needed
Maintain DAVID
ABx: unasyn - ID following
Lovenox for VTE prophylaxis -> on hold d/t GIB
PPI BID - okay to stop gtt
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
Subjective Data
-
Date of Service: June 12, 2024
Patient seen and examined at bedside with Dr. Talavera. Denies n/v. Tolerating clears. Liquid stools prompting placement of rectal tube. Notes he is quite eager to be out of the hospital.
Objective Data
-
Intake and Output
06/11/24 06/12/24 06/13/24
06:59 06:59 06:59
Intake Total 2712.4 / 2771.4 2432.8 / 2432.8
Output Total 3680 / 3680 2485 / 2485
Balance -967.6 / -908.6 -52.2 / -52.2
Intake:
Oral fluids 1340 / 1340
IV fluids (Total) 340.4 / 355.4 96.8 / 96.8
0.45%NaCl 1,000 ml @ 40 mls/hr 80 / 80
IV .Q24H ENRIQUE Rx#:[id number]
Insulin 60.4 / 65.4 56.8 / 56.8
Protonix 200 / 210 40 / 40
IV piggybacks 250 / 250 100 / 100
TPN/PPN 1092 / 1136 616 / 616
Amount instilled into GI Tube ( 530 / 530 30 / 30
Total)
Ashe Sump 530 / 530 30 / 30
Blood Product Amount Infused ( 500 / 500 250 / 250
mL)
Packed Rbc Leukoreduced Unit 250 / 250
[id number]
Packed Rbc Leukoreduced Unit 250 / 250
[id number]
Packed Rbc Leukoreduced Unit 250 / 250
[id number]
Output:
Liquid stool amount 150 / 150
Rectum 150 / 150
Drain Output (Total) 80 / 80 35 / 35
Right Abdomen Piotr-Tobias 80 / 80 35 / 35
Gastrointestinal tube output ( 400 / 400
Total)
Ashe Sump 400 / 400
Urine, Voided 3200 / 3200 2300 / 2300
Other:
Number of approximated MODERATE 1
amounts of urine
How many times incontinent 2
SATURATED amount urine
Number of unmeasured liquid
stools
Rectum 2
Vital Signs
Temp Pulse Resp BP Pulse Ox
98.4 F 81 28 124/66 92
06/12/24 07:27 06/12/24 08:00 06/12/24 08:00 06/12/24 08:00 06/12/24 08:16
Lab Results
06/12/24 03:46
06/12/24 03:46
Calcium 7.7 mg/dl (8.4-10.2) L 06/12/24 03:46
Phosphorus 3.5 mg/dl (2.5-4.5) 06/11/24 04:19
Magnesium 2.0 mg/dl (1.6-2.3) 06/11/24 04:19
Total Bilirubin 0.6 mg/dl (0.2-1.3) 06/12/24 03:46
AST 69 U/L (17-59) H 06/12/24 03:46
ALT 49 U/L (0-50) 06/12/24 03:46
Alkaline Phosphatase 246 U/L (38-126) H 06/12/24 03:46
Total Protein 4.1 g/dl (6.3-8.2) L 06/12/24 03:46
Albumin 2.1 g/dl (3.5-5.0) L 06/12/24 03:46
Physical Exam
-
NAD AAOx3
ABD: soft, obese, mild distention, nontender
incision with intact staple line
DAVID with light SSF, nonpurulent, non bilious
[2024-06-12 11:49] LABS: Glucose - Point of Care 173 mg/dl (70-99)
--- NOTE | 2024-06-12 11:54 | W.PN.ID1 ---
Date of Service
Date of Service: June 12, 2024
Today's Communication
Continue Unasyn for now
Assessment / Plan
# Perforated giant duodenal ulcer with peritonitis
- 7/6 s/p ex-lap, primary repair, perforated duodenal ulcer with omental pedicle flap.
- OR gram stain: moderate GPC, cx neg to date; Anaerobic cx - NG
- Continue with Unasyn (d#7 abx)
# leukocytosis
- trending down
# Post-op ileus
- Diet being advanced.
# Anemia (acute blood loss) with maroon/bloody stools.
# Tobacco use disorder
# DM
# AAA
#Additional Past Medical History:
Duodenal ulcer
DM
HTN
GERD
Abdominal aortic aneurysm 5.7 cm
Chief Complaint
-: Other (Perforated viscus)
Subjective / Review of Systems
Tolerated liquid diet.
Vital Signs / Physical Exam
Vital Signs
Vital Signs
Temp Pulse Resp BP Pulse Ox
98.4 F 86 22 122/49 92
06/12/24 07:27 06/12/24 10:00 06/12/24 10:00 06/12/24 10:00 06/12/24 08:16
Physical Exam
Constitutional: No Acute Distress
Cardiovascular: Regular Rate and S1/S2
Pulmonary: Clear (anteriorly)
Gastrointestinal: Soft, Non Tender, Decreased Bowel Sounds and Other (DAVID drain serous output. FMS: dark brown loose stool)
Neurological: AO x 3
Objective Data
Lab Data
Lab Results
06/12/24 03:46
06/12/24 03:46
PT 15.9 Sec (11.4-14.6) H 06/12/24 03:46
INR 1.26 06/12/24 03:46
APTT 33.8 Sec (23.4-35.0) 06/12/24 03:46
Estimated Creat Clear 83 ml/min 06/12/24 03:46
Lactic Acid 1.2 mmol/L (0.7-2.0) 06/08/24 02:04
Total Bilirubin 0.6 mg/dl (0.2-1.3) 06/12/24 03:46
AST 69 U/L (17-59) H 06/12/24 03:46
ALT 49 U/L (0-50) 06/12/24 03:46
Alkaline Phosphatase 246 U/L (38-126) H 06/12/24 03:46
Most recent labs reviewed.
Micro Results:
06/06/24 11:50 Blood Culture - Final
Blood/Venous No Growth - Final Report
06/06/24 11:50 Blood Culture - Final
Blood/Venous No Growth - Final Report
06/06/24 14:11 Wound Culture - Final
Abdomen No growth
Gram Stain - Final
06/06/24 14:11 Anaerobic Culture - Final
Peritoneal Fluid NO ANAEROBES ISOLATED
06/10/24 CT a/P: No findings to suggest active colonic bleeding.
Small bilateral simple renal cysts as well as additional subcentimeter low-attenuation renal lesions too small to characterize. Single 1.2 cm slightly high attenuation left renal cyst without postcontrast enhancement, likely representing a
hyperdense cyst.
Dilation of the intestinal tract limited without oral contrast without gross findings to suggest accompanying inflammatory changes.
06/08/24 CT a/p: 1. No foci of contrast extravasation to suggest active gastrointestinal hemorrhage at the time of imaging.
2.Small amount of hyperattenuating fluid within the duodenum, which may represent blood products.
3. Suggestion of mild postoperative ileus.
4. Small amount of free intraperitoneal air, likely postoperative.
5. Small bilateral pleural effusions, with likely bibasilar subsegmental atelectasis.
6. Abdominal aortic aneurysm, measuring 5.7 cm in greatest orthogonal dimension.
7. Multifocal arterial stenoses within both common iliac, external iliac, and common femoral arteries. If there is clinical suspicion of significant peripheral arterial disease, consider ankle-brachial indices.
06/06/24 CTA C/A/P: Diffuse duodenitis. Duodenal perforation. No focal collection or abscess. Discussed with Dr. Rodgers at 11:48 AM on 06/06/2024, and reviewed with Dr. Sanchez. Mid to distal infrarenal abdominal aortic fusiform aneurysm without
secondary complications. No evidence to suggest impending rupture. No dissection.
Care Review
Plan reviewed with: Physician (Dr. Fernandez)
[2024-06-12] MEDS: TRANEXAMIC ACID 100 IV (12:06)
[2024-06-12] MEDS: TYLENOL 650 MG PO ×2 (12:09→19:55)
--- NOTE | 2024-06-12 13:34 | CM ---
CM following re: discharge planning.
Reviewed pt's chart, met with pt.
Pt is a POD #6 status post ex lap primary repair perforated giant duodenal ulcer with omental pedicle flap to buttress primary closure. Per Surgery, pt clinically stable, continue supportive care.
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 PT and OT recommends SNF vs home PT and pt preferred home PT
A referral to [facility] made yesterday.
D/C plan: home with [facility] and family support. Family to transport at discharge.
CM will follow with discharge plan updates as hospitalization progresses
--- NOTE | 2024-06-12 15:41 | W.PN.HOSP.TC ---
Today's Communication/Plan
-
Antibiotics per
Clear liquid diet
Monitor hemoglobin.
Increase activity.
IV PPI.
Adjust insulin/oral hypoglycemic regimen.
Transfer out of ICU
Assessment / Plan
Assessment / Plan
Impression:
Presented with severe abdominal pain.
Perforated duodenal ulcer with pneumoperitoneum
� Status post exploratory laparotomy, primary repair of perforated duodenal ulcer with omental pedicle flap 06/06.
Acute blood loss anemia from gastrointestinal bleed/bright red blood per rectum
Sepsis
Shock, likely combination of sepsis and secondary to acute blood loss anemia.
Lactic acidosis
Hyperglycemia
Conditions prior to admission:
PAD/abdominal aortic aneurysm 5.6 cm
Essential hypertension
Insulin requiring diabetes
GERD.
[id number] tobacco smoking.
Emphysema.
Plan
#Sepsis secondary to perforated duodenal ulcer resulting peritonitis
Status post OR 06/06 with exploratory laparotomy, primary repair perforated duodenal ulcer with omental pedicle flap 06/06
H/O GERD/history of duodenal ulcer/gastritis
Blood culture NGTD
CT angio 06/08 negative for bleed
ID following, antibiotics changed to Unasyn. Continue to monitor culture
OR with gram-positive cocci
Diet has been advanced to clear liquids
Continue with PPI changed from drip to twice daily
Monitor DAVID drain output
#Lactic acidosis
resolved
Acute hypoxic respiratory insufficiency
Suspect secondary to atelectasis
Chest x-ray with no acute infiltrates.
Monitor.
Increase activity
#Anemia- Due to acute blood loss anemia
Bright red blood per rectum overnight 06/10
2 unit PRBC 06/09, 3 units 06/10; hemoglobin 6.6 06/10; monitor. CTA 06/10 without any acute GI bleeding. now no more bleeding episodes; hemoglobin 8.3. Continue to monitor
TXA surgery
Continue to monitor hemoglobin with blood transfusion
#History of hypertension
Hold lisinopril
Hydralazine as needed
#Diabetes mellitus
A1c 7.5
With diet advanced, transition off insulin drip to subcutaneous Lantus with addition of glyburide.
Hyponatremia improved
Hypophosphatemia
Replete
#History of smoking
Cessation advised
Nicotine patch
#Hypocalcemia-Check Vit D and replace calcium
#Abdominal aortic aneurysm, measuring 5.7 cm in greatest orthogonal dimension.
#PAD-Multifocal arterial stenoses within both common iliac, external iliac, and common femoral arteries.
HO when stable
#50 pound weight loss over the past year -Needs OP work up
#Hepatic Steatosis
#Hypoalbuminemia
#Diverticulosis
#History of hepatitis A
#2.3 mm noncalcified nodule in the anterolateral inferior right upper lobe-OP follow up
#Nutrition- TPN being started
#DVT prophylaxis-Lovenox
#Full code
Anticipated Discharge: > 48 hours
Subjective/Interval History
-
Date of Service: June 12, 2024
Objective Data
-
Labs:
Laboratory Results
06/12/24
03:46
WBC 11.1 H
Hgb 7.7 L
Hct 22.3 L
Plt Count 185
PT 15.9 H
INR 1.26
APTT 33.8
Sodium 142
Potassium 3.6
Chloride 113 H
Carbon Dioxide 25
BUN 22 H
Creatinine 0.9
Glucose 158 H
Calcium 7.7 L
Total Bilirubin 0.6
AST 69 H
ALT 49
Alkaline Phosphatase 246 H
Vital Signs:
Vital Signs
Temp Pulse Resp BP Pulse Ox
98.5 F 85 27 125/66 93
06/12/24 11:58 06/12/24 12:29 07/12/24 12:29 06/12/24 12:49 06/12/24 12:12
I&O
06/11/24 06/12/24 06/13/24
06:59 06:59 06:59
Intake Total 2712.4 / 2771.4 2432.8 / 2432.8 500 / 500
Output Total 3680 / 3680 2485 / 2485 800 / 800
Balance -967.6 / -908.6 -52.2 / -52.2 -300 / -300
Physical Exam
-
General: Well Developed and No Apparent Distress
HEENT: Normocephalic, Atraumatic and Moist Mucous Membranes
Respiratory: Clear to Auscultation
Cardiac: Regular Rhythm and S1/S2; Negative Murmur, Rub or Gallop
GI: Soft, Nontender, Nondistended, Normal Bowel Sounds and Other (DAVID drain in place with serosanguineous fluid); Negative Organomegaly
Rectal: Deferred by Provider
Musculoskeletal: No Clubbing, No Cyanosis and No Edema
Skin: Negative Rash
Neuro: Awake, Alert, Oriented and Nonfocal/Grossly Intact
[2024-06-12] MEDS: NOVOLOG FLEXPEN-MODERATE RESISTANCE 5 UNITS SC (17:38)
[2024-06-12 17:39] LABS: Glucose - Point of Care 275 mg/dl (70-99)
--- NOTE | 2024-06-12 18:36 | PTCARENOTE ---
Transferring to 2S. Pt AAOx3. Last BM small loose brown. Ate 100% of clear tray for breakfast lunch and dinner today.
--- NOTE | 2024-06-12 19:07 | PTCARENOTE ---
[facility] to chair; Right abdomen DAVID drain intact, draining serosanguineous fluid, dressing C/D/I; Midline abdominal incision open to air with robi present, no drainage; Patient denies pain at this
time; Patient denies nausea/vomiting; Call pride within reach; Assessment ongoing
[2024-06-12 21:40] LABS: Glucose - Point of Care 260 mg/dl (70-99)
[2024-06-12] MEDS: LANTUS 0.2 UNITS SC (21:50)
[2024-06-13] MEDS: UNASYN IV ×3 (00:06→12:33)
[2024-06-13] MEDS: TYLENOL 650 MG PO ×2 (05:53→20:49)
[2024-06-13 06:00] VITALS: BMI 34.1
[2024-06-13 07:12] VITALS: BP 107/60
[2024-06-13 07:13] LABS: Glucose - Point of Care 142 mg/dl (70-99)
[2024-06-13] MEDS: NOVOLOG FLEXPEN-MODERATE RESISTANCE SC (07:29)
[2024-06-13] MEDS: NSS (PRESERVATIVE FREE) 10 ML IV ×2 (08:07→20:12)
[2024-06-13] MEDS: NICODERM TRANSDERMAL 21 MG TRANSDERM (08:07)
[2024-06-13] MEDS: PROTONIX IV 40 MG IV ×2 (08:08→20:11)
[2024-06-13] MEDS: PRED FORTE 1% EYE DROPS 1 DROP LEFT EYE (08:08)
[2024-06-13] MEDS: GLUCOTROL 2.5 MG PO ×2 (08:08→16:12)
--- NOTE | 2024-06-13 09:43 | W.PN.ID1 ---
Date of Service
Date of Service: June 13, 2024
Today's Communication
Transition to Augmentin
Assessment / Plan
# Perforated giant duodenal ulcer with peritonitis
- 06/06 s/p ex-lap, primary repair, perforated duodenal ulcer with omental pedicle flap.
- OR gram stain: moderate GPC, cx neg to date; Anaerobic cx - NG
- Transition Unasyn (d#8 abx) to Augmentin 875mg po bid through 06/19
# leukocytosis
- resolved
# Post-op ileus
- Diet being advanced.
# Anemia (acute blood loss) with maroon/bloody stools.
# Tobacco use disorder
# DM
# AAA
#Additional Past Medical History:
Duodenal ulcer
DM
HTN
GERD
Abdominal aortic aneurysm 5.7 cm
Chief Complaint
-: Other (Perforated viscus)
Subjective / Review of Systems
Getting stronger.
Vital Signs / Physical Exam
Vital Signs
Vital Signs
Temp Pulse Resp BP Pulse Ox
98.4 F 87 16 107/60 94
06/13/24 07:12 06/13/24 07:12 06/13/24 07:12 06/13/24 07:12 06/13/24 07:12
Physical Exam
Constitutional: No Acute Distress
Pulmonary: Clear
Gastrointestinal: Soft, Non Tender, Distended and Other (DAVID drain: serous )
Neurological: AO x 3
Objective Data
Lab Data
PT 15.9 Sec (11.4-14.6) H 06/12/24 03:46
INR 1.26 06/12/24 03:46
APTT 33.8 Sec (23.4-35.0) 06/12/24 03:46
Estimated Creat Clear 83 ml/min 06/12/24 03:46
Lactic Acid 1.2 mmol/L (0.7-2.0) 06/08/24 02:04
Total Bilirubin 0.6 mg/dl (0.2-1.3) 06/12/24 03:46
AST 69 U/L (17-59) H 06/12/24 03:46
ALT 49 U/L (0-50) 06/12/24 03:46
Alkaline Phosphatase 246 U/L (38-126) H 06/12/24 03:46
Most recent labs reviewed.
Micro Results:
06/06/24 11:50 Blood Culture - Final
Blood/Venous No Growth - Final Report
06/06/24 11:50 Blood Culture - Final
Blood/Venous No Growth - Final Report
06/06/24 14:11 Wound Culture - Final
Abdomen No growth
Gram Stain - Final
06/06/24 14:11 Anaerobic Culture - Final
Peritoneal Fluid NO ANAEROBES ISOLATED
06/10/24 CT a/P: No findings to suggest active colonic bleeding.
Small bilateral simple renal cysts as well as additional subcentimeter low-attenuation renal lesions too small to characterize. Single 1.2 cm slightly high attenuation left renal cyst without postcontrast enhancement, likely representing a
hyperdense cyst.
Dilation of the intestinal tract limited without oral contrast without gross findings to suggest accompanying inflammatory changes.
06/08/24 CT a/p: 1. No foci of contrast extravasation to suggest active gastrointestinal hemorrhage at the time of imaging.
2.Small amount of hyperattenuating fluid within the duodenum, which may represent blood products.
3. Suggestion of mild postoperative ileus.
4. Small amount of free intraperitoneal air, likely postoperative.
5. Small bilateral pleural effusions, with likely bibasilar subsegmental atelectasis.
6. Abdominal aortic aneurysm, measuring 5.7 cm in greatest orthogonal dimension.
7. Multifocal arterial stenoses within both common iliac, external iliac, and common femoral arteries. If there is clinical suspicion of significant peripheral arterial disease, consider ankle-brachial indices.
06/06/24 CTA C/A/P: Diffuse duodenitis. Duodenal perforation. No focal collection or abscess. Discussed with Dr. Rodgers at 11:48 AM on 06/06/2024, and reviewed with Dr. Sanchez. Mid to distal infrarenal abdominal aortic fusiform aneurysm without
secondary complications. No evidence to suggest impending rupture. No dissection.
[2024-06-13 09:48] LABS: Hematocrit 23.9 % (39.0-52.0); Hemoglobin 8.1 g/dL (13.0-18.0); Mean Corp Hgb Conc. 33.9 g/dL (33.0-37.0); Mean Corpuscular Hgb 31.4 pg (27.0-31.0); Mean Corpuscular Volume 92.6 fL (80.0-94.0); Mean Platelet Volume 10.2 fL (7.4-10.4); Platelet Count 242 10^3/uL (130-400); Red Blood Cell Count 2.58 10^6/uL (4.70-6.10); Red Cell Dist. Width 17.2 % (11.5-14.5); White Blood Cell Count 9.3 10^3/uL (4.8-10.8)
[2024-06-13 10:09] LABS: Blood Urea Nitrogen 11 mg/dl (9-20); Calcium 7.6 mg/dl (8.4-10.2); Carbon Dioxide 24 mmol/L (22-30); Chloride 109 mmol/L (98-107); Estimated Creatinine Clearance 82 ml/min; Glucose 238 mg/dl (70-99); Potassium 3.5 mmol/L (3.5-5.1); Sodium 137 mmol/L (135-145); eGFR > 60.00
[2024-06-13 12:07] LABS: Glucose - Point of Care 174 mg/dl (70-99)
[2024-06-13] MEDS: NOVOLOG FLEXPEN-MODERATE RESISTANCE 1 UNITS SC (12:32)
--- NOTE | 2024-06-13 14:21 | W.PN.HOSP.TC ---
Today's Communication/Plan
-
Hemoglobin stable
Diet has been advanced
Antibiotics changed to p.o.
Physical therapy assessment.
Assessment / Plan
Assessment / Plan
Impression:
Presented with severe abdominal pain.
Perforated duodenal ulcer with pneumoperitoneum
� Status post exploratory laparotomy, primary repair of perforated duodenal ulcer with omental pedicle flap 06/06.
Acute blood loss anemia from gastrointestinal bleed/bright red blood per rectum
Sepsis
Shock, likely combination of sepsis and secondary to acute blood loss anemia.
Lactic acidosis
Hyperglycemia
Conditions prior to admission:
PAD/abdominal aortic aneurysm 5.6 cm
Essential hypertension
Insulin requiring diabetes
GERD.
36-edos-wxas tobacco smoking.
Emphysema.
Plan
#Sepsis secondary to perforated duodenal ulcer resulting peritonitis
Status post OR 06/06 with exploratory laparotomy, primary repair perforated duodenal ulcer with omental pedicle flap 06/06
H/O GERD/history of duodenal ulcer/gastritis
Blood culture NGTD
CT angio 06/08 negative for bleed
ID following, antibiotics changed to Unasyn and to Augmentin on 06/13
OR with gram-positive cocci
Diet has been advanced to low residue on 06/13
Continue with PPI changed from drip to twice daily, eventually transition to p.o.
Monitor DAVID drain output
#Lactic acidosis
resolved
Acute hypoxic respiratory insufficiency
Suspect secondary to atelectasis
Chest x-ray with no acute infiltrates.
Monitor.
Increase activity
#Anemia- Due to acute blood loss anemia
Bright red blood per rectum overnight 06/10
2 unit PRBC 06/09, 3 units 06/10; hemoglobin 6.6 06/10; monitor. CTA 06/10 without any acute GI bleeding. now no more bleeding episodes; hemoglobin 8.3. Continue to monitor
TXA surgery
Continue to monitor hemoglobin with blood transfusion
#History of hypertension
Hold lisinopril
Hydralazine as needed
#Diabetes mellitus
A1c 7.5
With diet advanced, transition off insulin drip to subcutaneous Lantus with addition of glyburide.
Hyponatremia improved
Hypophosphatemia
Replete
#History of smoking
Cessation advised
Nicotine patch
#Hypocalcemia-Check Vit D and replace calcium
#Abdominal aortic aneurysm, measuring 5.7 cm in greatest orthogonal dimension.
#PAD-Multifocal arterial stenoses within both common iliac, external iliac, and common femoral arteries.
HO when stable
#50 pound weight loss over the past year -Needs OP work up
#Hepatic Steatosis
#Hypoalbuminemia
#Diverticulosis
#History of hepatitis A
#2.3 mm noncalcified nodule in the anterolateral inferior right upper lobe-OP follow up
#Nutrition- TPN being started
#DVT prophylaxis-Lovenox
#Full code
Anticipated Discharge: 24 - 48 hours
Subjective/Interval History
-
Date of Service: June 13, 2024
Objective Data
-
Labs:
Laboratory Results
06/13/24
09:39
WBC 9.3
Hgb 8.1 L
Hct 23.9 L
Plt Count 242 D
Sodium 137
Potassium 3.5
Chloride 109 H
Carbon Dioxide 24
BUN 11
Creatinine 0.9
Glucose 238 H
Calcium 7.6 L
Vital Signs:
Vital Signs
Temp Pulse Resp BP Pulse Ox
98.4 F 87 16 107/60 94
06/13/24 07:12 06/13/24 07:12 06/13/24 07:12 06/13/24 07:12 06/13/24 07:12
I&O
06/12/24 06/13/24 06/14/24
06:59 06:59 06:59
Intake Total 2432.8 / 2432.8 980 / 980
Output Total 2485 / 2485 1205 / 1205
Balance -52.2 / -52.2 -225 / -225
Physical Exam
-
General: Well Developed and No Apparent Distress
HEENT: Normocephalic, Atraumatic and Moist Mucous Membranes
Respiratory: Clear to Auscultation
Cardiac: Regular Rhythm and S1/S2; Negative Murmur, Rub or Gallop
GI: Soft, Nontender, Nondistended, Normal Bowel Sounds and Other (DAVID drain in place with serosanguineous fluid); Negative Organomegaly
Rectal: Deferred by Provider
Musculoskeletal: No Clubbing, No Cyanosis and No Edema
Skin: Negative Rash
Neuro: Awake, Alert, Oriented and Nonfocal/Grossly Intact
--- NOTE | 2024-06-13 14:46 | W.PN.GS2 ---
Addendum entered and electronically signed by Ricardo Loera MD 06/13/24 15:07:
I saw and examined the patient.
The Supervisor Steffen House's note was reviewed and I agree with the note.
Comment: Improving. [place]rie diet. Denies n/v. Pain controlled. Passing flatus and BM. Non-bloody BM this am. Hb has stabilized, no transfusion in >24 hrs. Exam approp. Drain ss. Plan to adv diet, smaller meals. IV abx. SCDs.
Original Note:
Today's Communication / Plan
-
Diet advancement
Assessment / Plan
-
Assessment: 68-year-old male POD #7 status post ex lap primary repair perforated giant duodenal ulcer with omental pedicle flap to buttress primary closure; washout large contaminated retroperitoneal/pancreatic perforation site.
AFVSS
Acute blood loss anemia. followup CT angio 06/10 again negative for localizing source of GIB - ? upper from ulcer/repair site
- reports brown stools today
- h/h now stable. given total of 7 units of blood, last transfusion was 06/11
- s/p TXA on 06/12
- tolerating CLD
DAVID with light SSF
Operative cultures: Gram-positive cocci on Gram stain, no growth; blood cx negative
Plan: Advance to LRD/ADA diet: 6 small meals a day. Cautioned to go slow
continue off TPN
Maintain DAVID
ABx: unasyn - ID following
Lovenox for VTE prophylaxis -> on hold d/t GIB. Utilize SCD's while in bed
PPI BID
OOB/Ambulate. Declined PT today.
Subjective Data
-
Date of Service: June 13, 2024
Patient seen and examined at bedside with Dr. Loera. Denies n/v. Notes he is very hungry. Passing flatus stools. Notes stools turned from green to brown. Some residual discomfort to abdomen but not severe.
Objective Data
-
Intake and Output
06/12/24 06/13/24 06/14/24
06:59 06:59 06:59
Intake Total 2432.8 / 2432.8 980 / 980
Output Total 2485 / 2485 1205 / 1205
Balance -52.2 / -52.2 -225 / -225
Intake:
Oral fluids 1340 / 1340 980 / 980
IV fluids (Total) 96.8 / 96.8
Insulin 56.8 / 56.8
Protonix 40 / 40
IV piggybacks 100 / 100
TPN/PPN 616 / 616
Amount instilled into GI Tube ( 30 / 30
Total)
[place] Sump 30 / 30
Blood Product Amount Infused ( 250 / 250
mL)
Packed Rbc Leukoreduced Unit 250 / 250
[id number]
Output:
Liquid stool amount 150 / 150 500 / 500
Rectum 150 / 150 500 / 500
Drain Output (Total) 35 105 / 105
Right Abdomen Piotr-Tobias 35 / 105 / 105
Urine, Voided 2300 / 2300 600 / 600
Other:
Number of approximated MODERATE 1
amounts of urine
Number of unmeasured liquid
stools
Rectum 2
Vital Signs
Temp Pulse Resp BP Pulse Ox
98.4 F 87 16 107/60 94
06/13/24 07:12 06/13/24 07:12 06/13/24 07:12 06/13/24 07:12 06/13/24 07:12
Lab Results
06/13/24 09:39
06/13/24 09:39
Calcium 7.6 mg/dl (8.4-10.2) L 06/13/24 09:39
Phosphorus 3.5 mg/dl (2.5-4.5) 06/11/24 04:19
Magnesium 2.0 mg/dl (1.6-2.3) 06/11/24 04:19
Total Bilirubin 0.6 mg/dl (0.2-1.3) 06/12/24 03:46
AST 69 U/L (17-59) H 06/12/24 03:46
ALT 49 U/L (0-50) 06/12/24 03:46
Alkaline Phosphatase 246 U/L (38-126) H 06/12/24 03:46
Total Protein 4.1 g/dl (6.3-8.2) L 06/12/24 03:46
Albumin 2.1 g/dl (3.5-5.0) L 06/12/24 03:46
Physical Exam
-
NAD AAOx3
ABD: soft, obese, mild distention, nontender
incision with intact staple line
DAVID with light SSF, nonpurulent, non bilious
[2024-06-13 15:19] VITALS: BP 101/62
[2024-06-13 15:48] LABS: Glucose - Point of Care 260 mg/dl (70-99)
[2024-06-13] MEDS: NOVOLOG FLEXPEN-MODERATE RESISTANCE 5 UNITS SC (16:12)
[2024-06-13] MEDS: AUGMENTIN 875 MG/125 MG 1 TABLET PO (20:11)
[2024-06-13 22:23] LABS: Glucose - Point of Care 185 mg/dl (70-99)
[2024-06-13] MEDS: LANTUS 0.2 UNITS SC (22:33)
[2024-06-13 23:13] VITALS: BP 97/54
[2024-06-14 06:00] VITALS: BMI 33.5
[2024-06-14 06:16] LABS: % Basophils 0.4 % (0-2); % Eosinophils 3.8 % (0-6); % Immature Granulocytes 3.7 % (0-0.5); % Lymphocytes 15.6 % (20.5-51.1); % Monocytes 10.8 % (1.7-9.3); % Neutrophils 65.7 % (42.2-75.2); Absolute Eosinophils 0.3 10^3/uL (0-0.7); Absolute Immature Granulocytes 0.3 10^3/uL (0-0.05); Absolute Lymphocytes 1.3 10^3/uL (1.2-3.4); Absolute Monocytes 0.9 10^3/uL (0.1-0.6); Absolute Neutrophils 5.3 10^3/uL (1.4-6.5); Hematocrit 22.2 % (39.0-52.0); Hemoglobin 7.5 g/dL (13.0-18.0); Mean Corp Hgb Conc. 33.8 g/dL (33.0-37.0); Mean Corpuscular Hgb 30.4 pg (27.0-31.0); Mean Corpuscular Volume 89.9 fL (80.0-94.0); Mean Platelet Volume 9.9 fL (7.4-10.4); Nucleated Red Blood Cells % 0.2 % (-); Platelet Count 277 10^3/uL (130-400); Red Blood Cell Count 2.47 10^6/uL (4.70-6.10); Red Cell Dist. Width 16.5 % (11.5-14.5); White Blood Cell Count 8.1 10^3/uL (4.8-10.8)
[2024-06-14 07:06] LABS: Blood Urea Nitrogen 10 mg/dl (9-20); Calcium 7.8 mg/dl (8.4-10.2); Carbon Dioxide 25 mmol/L (22-30); Chloride 111 mmol/L (98-107); Estimated Creatinine Clearance 92 ml/min; Glucose 144 mg/dl (70-99); Potassium 3.6 mmol/L (3.5-5.1); Sodium 139 mmol/L (135-145); eGFR > 60.00
[2024-06-14 07:13] VITALS: BP 97/56
[2024-06-14 07:48] LABS: Glucose - Point of Care 189 mg/dl (70-99)
[2024-06-14] MEDS: NICODERM TRANSDERMAL 21 MG TRANSDERM (07:52)
[2024-06-14] MEDS: NSS (PRESERVATIVE FREE) 10 ML IV ×2 (07:52→20:17)
[2024-06-14] MEDS: PROTONIX IV 40 MG IV ×2 (07:52→20:18)
[2024-06-14] MEDS: PRED FORTE 1% EYE DROPS 1 DROP LEFT EYE (07:52)
[2024-06-14] MEDS: GLUCOTROL 2.5 MG PO ×2 (07:53→17:23)
[2024-06-14] MEDS: AUGMENTIN 875 MG/125 MG 1 TABLET PO ×2 (07:53→20:17)
[2024-06-14] MEDS: NOVOLOG FLEXPEN-MODERATE RESISTANCE 1 UNITS SC ×3 (07:53→17:23)
--- NOTE | 2024-06-14 10:03 | W.PN.HOSP.TC ---
Today's Communication/Plan
-
PT/OT
follow HGB
D/C planning
Assessment / Plan
Assessment / Plan
Impression:
Presented with severe abdominal pain.
Perforated duodenal ulcer with pneumoperitoneum
� Status post exploratory laparotomy, primary repair of perforated duodenal ulcer with omental pedicle flap 06/06.
Acute blood loss anemia from gastrointestinal bleed/bright red blood per rectum
Sepsis
Shock, likely combination of sepsis and secondary to acute blood loss anemia.
Lactic acidosis
Hyperglycemia
Conditions prior to admission:
PAD/abdominal aortic aneurysm 5.6 cm
Essential hypertension
Insulin requiring diabetes
GERD.
98-syae-chzm tobacco smoking.
Emphysema.
Plan
06/14/24 -- cont with PT/OT to build stamina--add IS, encourage OOB
#Sepsis secondary to perforated duodenal ulcer resulting peritonitis
Status post OR 06/06 with exploratory laparotomy, primary repair perforated duodenal ulcer with omental pedicle flap 06/06
H/O GERD/history of duodenal ulcer/gastritis
Blood culture NGTD
CT angio 06/08 negative for bleed
ID following, antibiotics changed to Unasyn and to Augmentin on 06/13
OR with gram-positive cocci
Diet has been advanced to low residue on 06/13
Continue with PPI changed from drip to twice daily, eventually transition to p.o.
Monitor DAVID drain output
#Lactic acidosis
resolved
Acute hypoxic respiratory insufficiency--add IS, encourage OOB
Suspect secondary to atelectasis
Chest x-ray with no acute infiltrates.
Monitor.
Increase activity
#Anemia- Due to acute blood loss anemia
Bright red blood per rectum overnight on 06/10
2 unit PRBC 06/09, 3 units 06/10; hemoglobin 6.6 06/10; monitor. CTA 06/10 without any acute GI bleeding. now no more bleeding episodes; hemoglobin 8.3. Continue to monitor
TXA surgery
Continue to monitor hemoglobin with blood transfusion--HGB 7.5--follow, consider for another transfusion if pt fatigued with ADLs
#History of hypertension
Hold lisinopril
Hydralazine as needed
#Diabetes mellitus
A1c 7.5
With diet advanced, transition off insulin drip to subcutaneous Lantus with addition of glyburide.
Hyponatremia improved
Hypophosphatemia
Replete
#History of smoking
Cessation advised
Nicotine patch
#Hypocalcemia-Check Vit D and replace calcium
#Abdominal aortic aneurysm, measuring 5.7 cm in greatest orthogonal dimension.
#PAD-Multifocal arterial stenoses within both common iliac, external iliac, and common femoral arteries.
HO when stable
#50 pound weight loss over the past year -Needs OP work up
#Hepatic Steatosis
#Hypoalbuminemia
#Diverticulosis
#History of hepatitis A
#2.3 mm noncalcified nodule in the anterolateral inferior right upper lobe-OP follow up
#Nutrition- diet advanced per surgery
#DVT prophylaxis-Lovenox
#Full code
Anticipated Discharge: > 48 hours
Subjective/Interval History
-
Date of Service: June 14, 2024
pt tired from washing up/brushing teeth, etc
Objective Data
-
Labs:
Laboratory Results
06/14/24
06:08
WBC 8.1
Hgb 7.5 L
Hct 22.2 L
Plt Count 277
Sodium 139
Potassium 3.6
Chloride 111 H
Carbon Dioxide 25
BUN 10
Creatinine 0.8
Glucose 144 H
Calcium 7.8 L
Vital Signs:
max temp for 24 hours
06/13/24
15:19
Temp 99.4 F
Vital Signs
Temp Pulse Resp BP Pulse Ox
98.3 F 82 16 97/56 96
06/14/24 07:13 06/14/24 07:13 06/14/24 07:13 06/14/24 07:13 06/14/24 07:13
I&O
06/13/24 06/14/24 06/15/24
06:59 06:59 06:59
Intake Total 980 / 980 3960 / 3960
Output Total 1205 / 1205 3400 / 3400
Balance -225 / -225 560 / 560
Review of Systems
-
All other systems: Reviewed and negative
Physical Exam
-
General: Well Developed, Well Nourished and No Apparent Distress
HEENT: Normocephalic and Atraumatic
Respiratory: Clear to Auscultation; Negative Wheezes or Rhonchi
Cardiac: Regular Rhythm and S1/S2; Negative Murmur
GI: Soft, Normal Bowel Sounds, Tender (minimal), Distended and Other (DAVID drain in place)
Musculoskeletal: No Clubbing, No Cyanosis and No Edema
Neuro: Awake and Alert
--- NOTE | 2024-06-14 11:17 | W.PN.ID1 ---
Date of Service
Date of Service: June 14, 2024
Today's Communication
Continue Augmentin 875mg po bid through 06/19.
Assessment / Plan
# Perforated giant duodenal ulcer with peritonitis
- 06/06 s/p ex-lap, primary repair, perforated duodenal ulcer with omental pedicle flap.
- OR gram stain: moderate GPC, cx neg to date; Anaerobic cx - NG
- s/p Unasyn x7 days
- Continue Augmentin 875mg po bid through 06/19
# leukocytosis
- resolved
# Post-op ileus
-resolved
# Anemia (acute blood loss) with maroon/bloody stools.
# Tobacco use disorder
# DM
# AAA
#Additional Past Medical History:
Duodenal ulcer
DM
HTN
GERD
Abdominal aortic aneurysm 5.7 cm
Chief Complaint
-: Other (Perforated viscus)
Subjective / Review of Systems
No new complaitns.
Vital Signs / Physical Exam
Vital Signs
Vital Signs
Temp Pulse Resp BP Pulse Ox
98.3 F 82 16 97/56 96
06/14/24 07:13 06/14/24 07:13 06/14/24 07:13 06/14/24 07:13 06/14/24 07:13
Physical Exam
Constitutional: No Acute Distress and Comfortable
Gastrointestinal: Soft and Non Tender
Objective Data
Lab Data
Lab Results
06/14/24 06:08
06/14/24 06:08
PT 15.9 Sec (11.4-14.6) H 06/12/24 03:46
INR 1.26 06/12/24 03:46
APTT 33.8 Sec (23.4-35.0) 06/12/24 03:46
Estimated Creat Clear 92 ml/min 06/14/24 06:08
Lactic Acid 1.2 mmol/L (0.7-2.0) 06/08/24 02:04
Total Bilirubin 0.6 mg/dl (0.2-1.3) 06/12/24 03:46
AST 69 U/L (17-59) H 06/12/24 03:46
ALT 49 U/L (0-50) 06/12/24 03:46
Alkaline Phosphatase 246 U/L (38-126) H 06/12/24 03:46
Most recent labs reviewed.
Micro Results:
06/06/24 11:50 Blood Culture - Final
Blood/Venous No Growth - Final Report
06/06/24 11:50 Blood Culture - Final
Blood/Venous No Growth - Final Report
06/06/24 14:11 Wound Culture - Final
Abdomen No growth
Gram Stain - Final
06/06/24 14:11 Anaerobic Culture - Final
Peritoneal Fluid NO ANAEROBES ISOLATED
06/10/24 CT a/P: No findings to suggest active colonic bleeding.
Small bilateral simple renal cysts as well as additional subcentimeter low-attenuation renal lesions too small to characterize. Single 1.2 cm slightly high attenuation left renal cyst without postcontrast enhancement, likely representing a
hyperdense cyst.
Dilation of the intestinal tract limited without oral contrast without gross findings to suggest accompanying inflammatory changes.
06/08/24 CT a/p: 1. No foci of contrast extravasation to suggest active gastrointestinal hemorrhage at the time of imaging.
2.Small amount of hyperattenuating fluid within the duodenum, which may represent blood products.
3. Suggestion of mild postoperative ileus.
4. Small amount of free intraperitoneal air, likely postoperative.
5. Small bilateral pleural effusions, with likely bibasilar subsegmental atelectasis.
6. Abdominal aortic aneurysm, measuring 5.7 cm in greatest orthogonal dimension.
7. Multifocal arterial stenoses within both common iliac, external iliac, and common femoral arteries. If there is clinical suspicion of significant peripheral arterial disease, consider ankle-brachial indices.
06/06/24 CTA C/A/P: Diffuse duodenitis. Duodenal perforation. No focal collection or abscess. Discussed with Dr. Rodgers at 11:48 AM on 06/06/2024, and reviewed with Dr. Sanchez. Mid to distal infrarenal abdominal aortic fusiform aneurysm without
secondary complications. No evidence to suggest impending rupture. No dissection.
[2024-06-14 11:57] LABS: Glucose - Point of Care 182 mg/dl (70-99)
--- NOTE | 2024-06-14 12:34 | W.PN.GS2 ---
Addendum entered and electronically signed by Ricardo Loera MD 06/14/24 12:47:
I saw and examined the patient.
The Sleeping Bag Filler's note was reviewed and I agree with the note.
Comment: Stable. No complaints. Enjoying his meals. Exam approp. Incision cdi, drain ss. Cont diet, monitor Hb, cont abx per ID
Original Note:
Today's Communication / Plan
-
Continue diet
follow labs
Assessment / Plan
-
Assessment: 68-year-old male POD #8 status post ex lap primary repair perforated giant duodenal ulcer with omental pedicle flap to buttress primary closure; washout large contaminated retroperitoneal/pancreatic perforation site.
AFVSS
Acute blood loss anemia. followup CT angio 06/10 again negative for localizing source of GIB - ? upper from ulcer/repair site
- reports brown stools today with some tarry component
- h/h now relatively stable. given total of 7 units of blood, last transfusion was 06/11. Slight drift today from 8.1 to 7.5
- s/p TXA on 06/12
- tolerating lrd/ada diet (6 small meals)
DAVID with light SSF
Operative cultures: Gram-positive cocci on Gram stain, no growth; blood cx negative
Plan: Continue LRD/ADA diet: 6 small meals a day. Cautioned to go slow
Maintain DAVID, will likely remove prior to d/c
ABx: Augmentin - ID following
Lovenox for VTE prophylaxis -> on hold d/t GIB. Utilize SCD's while in bed
PPI BID
OOB/Ambulate. PT following.
CBC in am
Await stable h/h prior to discharge
Subjective Data
-
Date of Service: June 14, 2024
Patient seen and examined at bedside with Dr. Loera. Denies n/v. Minimal pain. Passing flatus. Had a brown stool with some tarry component this am.
Objective Data
-
Intake and Output
06/13/24 06/14/24 06/15/24
06:59 06:59 06:59
Intake Total 980 / 980 3960 / 3960
Output Total 1205 / 1205 3400 / 3400
Balance -225 / -225 560 / 560
Intake:
Oral fluids 980 / 980 3960 / 3960
Output:
Liquid stool amount 500 / 500
Rectum 500 / 500
Drain Output (Total) 105 / 105 75 / 75
Right Abdomen Piotr-Tobias 105 / 105 75 / 75
Urine, Voided 600 / 600 3325 / 3325
Other:
Number of approximated MODERATE 7
amounts of urine
Vital Signs
Temp Pulse Resp BP Pulse Ox
98.3 F 82 16 97/56 96
06/14/24 07:13 06/14/24 07:13 06/14/24 07:13 06/14/24 07:13 06/14/24 07:13
Lab Results
06/14/24 06:08
06/14/24 06:08
Calcium 7.8 mg/dl (8.4-10.2) L 06/14/24 06:08
Phosphorus 3.5 mg/dl (2.5-4.5) 06/11/24 04:19
Magnesium 2.0 mg/dl (1.6-2.3) 06/11/24 04:19
Total Bilirubin 0.6 mg/dl (0.2-1.3) 06/12/24 03:46
AST 69 U/L (17-59) H 06/12/24 03:46
ALT 49 U/L (0-50) 06/12/24 03:46
Alkaline Phosphatase 246 U/L (38-126) H 06/12/24 03:46
Total Protein 4.1 g/dl (6.3-8.2) L 06/12/24 03:46
Albumin 2.1 g/dl (3.5-5.0) L 06/12/24 03:46
Physical Exam
-
NAD AAOx3
ABD: soft, obese, obese, nontender
incision with intact staple line
DAVID with light SSF, nonpurulent, non bilious
[2024-06-14 15:08] VITALS: BP 137/54
[2024-06-14 17:24] LABS: Glucose - Point of Care 187 mg/dl (70-99)
[2024-06-14] MEDS: FLUSH (NSS) 2 FLUSH IV (20:18)
[2024-06-14] MEDS: TYLENOL 650 MG PO (20:27)
[2024-06-14 21:11] LABS: Glucose - Point of Care 170 mg/dl (70-99)
[2024-06-14] MEDS: LANTUS 0.2 UNITS SC (21:55)
--- NOTE | 2024-06-14 22:47 | PTCARENOTE ---
Report received from previous shift RN [id number]. Pt in bed, AAO3, no complaints offered. Heart sounds are regular, generalized anasarca noted and +1 pitting edema of RLE noted, palpable peripheral pulses present. pt declining SCDs as ordered, education
provided. Lung sounds clear, pt is WATTS and slightly SOB at rest, pox 94-95% on room air. Oc moist productive cough noted. IS at bedside, pt achieving 2000 ml. +BS, abdomen round obese. Tolerating low residue diet. Pt reports loose bms. RLQ JPdrain
with light serosanguineous drainage. Midline abdominal incision KOLTON w robi intact. Voiding in urinal. LUE midline catheter flushed and patent, capped. L w int capped. Call pride within reach, safe environment maintained. Will monitor.
[2024-06-14 22:48] VITALS: BP 96/56
[2024-06-15 04:01] VITALS: BMI 33.3
--- NOTE | 2024-06-15 06:01 | PTCARENOTE ---
Pt slept intermittently throughout night. Pt frequently turning side to side in bed; DAVID bulb came dislodged 2x throughout shift d/t pt's repositioning. Pinned drain slightly higher to attempt to prevent disconnection.
Assisted pt OOB to bathroom. Pt states he had loose bm and voided. Pt states stool was 'normal' in color, denied burgundy or black coloration; Instructed pt to call for staff prior to flushing toilet next bm.
[2024-06-15 07:16] VITALS: BP 120/56
[2024-06-15 07:56] LABS: Glucose - Point of Care 166 mg/dl (70-99)
[2024-06-15] MEDS: NOVOLOG FLEXPEN-MODERATE RESISTANCE 1 UNITS SC ×2 (08:19→12:33)
[2024-06-15] MEDS: GLUCOTROL 2.5 MG PO ×2 (08:20→09:45)
[2024-06-15] MEDS: AUGMENTIN 875 MG/125 MG 1 TABLET PO ×2 (08:21→20:41)
[2024-06-15] MEDS: NSS (PRESERVATIVE FREE) 10 ML IV ×2 (08:22→20:41)
[2024-06-15] MEDS: NICODERM TRANSDERMAL 21 MG TRANSDERM (08:22)
[2024-06-15] MEDS: FLUSH (NSS) 2 FLUSH IV (08:23)
[2024-06-15] MEDS: PRED FORTE 1% EYE DROPS 1 DROP LEFT EYE (08:23)
[2024-06-15] MEDS: PROTONIX IV 40 MG IV ×2 (08:23→20:41)
--- NOTE | 2024-06-15 08:34 | PN.DE.MGMTRT ---
Insulin Management
- -
06/15/2024: Diabetes Management Follow up
Patient admitted 06/06 with abdominal pain, perforated viscus, perforated duodenal ulcer-->exploratory lap and repair of perforated ulcer/viscus.
PMH: PUD, T2DM, was taking Basaglar 20 units hs only [employer], no other diabetes medications. A1C 7.5% Cr 0.8 eGFR >60. Patient normally sees Kevin Laws PA-C and Dr. Desai for diabetes management and uses a CGM- [place] for glucose monitoring at home.
Patient is awake, alert and oriented, resting in bed, offers no complaints, able to discuss diabetes management, eager to go home.
POD # 9 s/p exploratory lap and repair of perforated ulcer/viscus.
Diet was advanced and is tolerating it. pre meal Glucose has been 166 to 260, fasting 185 this AM
Will increase Glucotrol to 5mg BID, and Lantus to 22 units @ HS discussed with pt and he was agreeable.
Pt uses a CGM- [place] for glucose monitoring at home.
D/C regimen: Glucotrol to 5mg BID, and Lantus to 22 units @ HS. Encouraged pt to f/u with his Endocrine specialist after discharge.
Diabetes History
- -
Type of Diabetes: 2 requiring insulin
Pre-Admission Diabetes Regimen
Lab Results
Hemoglobin A1c 7.5 % (4.0-5.6) H 06/07/24 03:22
Insulin Pump Settings
IP Diabetes Regimen
06/14/24 06/14/24 06/14/24
11:56 17:22 21:09
POC Glucose 182 H 187 H 170 H
06/15/24
07:54
POC Glucose 166 H
Meal type: Dinner
Meal type: Breakfast
Amount consumed: 100%
Amount consumed: 100%
Patient Education
--- NOTE | 2024-06-15 09:46 | W.PN.GS2 ---
Addendum entered and electronically signed by Vincent Kelley MD 06/15/24 10:49:
I saw and examined the patient independently.
The Chucking Machine Operator's note was reviewed and I agree with the note, assessment and plan except where noted below.
Comment: 68-year-old male postop day 9 from an exploratory laparotomy for perforated giant duodenal ulcer.
Low residue diet
Will recheck H&H later today.
DC DAVID and robi.
Smoking cessation.
Anticipate discharge home tomorrow if hemoglobin remains stable.
Original Note:
Today's Communication / Plan
-
dispo planning
Assessment / Plan
-
Assessment: 68-year-old male POD #9 status post ex lap primary repair perforated giant duodenal ulcer with omental pedicle flap to buttress primary closure; washout large contaminated retroperitoneal/pancreatic perforation site.
Acute blood loss anemia. followup CT angio 06/10 again negative for localizing source of GIB - ? upper from ulcer/repair site
- reports brown stools today with some tarry component
- h/h now relatively stable. given total of 7 units of blood, last transfusion was 06/11. Slight drift today from 8.1 to 7.5
- s/p TXA on 06/12
- tolerating lrd/ada diet (6 small meals)
- PICC placed for TPN earlier this admission, removed on 06/14/24
DAVID with light SSF
Operative cultures: Gram-positive cocci on Gram stain, no growth; blood cx negative
AFVSS
Labs for today pending
Plan: Continue LRD/ADA diet: 6 small meals a day.
Maintain DAVID, will likely remove prior to d/c as well as robi
ABx: Augmentin - ID following
Lovenox for VTE prophylaxis -> on hold d/t GIB. Utilize SCD's while in bed
PPI BID (continue upon d/c)
OOB/Ambulate. PT following.
Await stable h/h prior to discharge, labs for today still pending
Subjective Data
-
Date of Service: June 15, 2024
Patient seen and examined at bedside with Dr. Philip. Subramanian n/v. Tolerating diet. Minimal discomfort. Eager to go home.
Objective Data
-
Intake and Output
06/14/24 06/15/24 06/16/24
06:59 06:59 06:59
Intake Total 3960 / 3960 2640 / 2640
Output Total 3400 / 3400 3175 / 3175
Balance 560 / 560 -535 / -535
Intake:
Oral fluids 3960 / 3960 2640 / 2640
Output:
Drain Output (Total) 75 / 75 45 / 45
Right Abdomen Piotr-Tobias 75 / 75 45 / 45
Urine, Voided 3325 / 3325 3130 / 3130
Other:
Number of approximated MODERATE 7 3
amounts of urine
Number of unmeasured liquid
stools
Rectum 2
Vital Signs
Temp Pulse Resp BP Pulse Ox
98.4 F 95 19 120/56 98
06/15/24 07:16 06/15/24 07:16 06/15/24 07:16 06/15/24 07:16 06/15/24 07:16
Calcium 7.8 mg/dl (8.4-10.2) L 06/14/24 06:08
Phosphorus 3.5 mg/dl (2.5-4.5) 06/11/24 04:19
Magnesium 2.0 mg/dl (1.6-2.3) 06/11/24 04:19
Total Bilirubin 0.6 mg/dl (0.2-1.3) 06/12/24 03:46
AST 69 U/L (17-59) H 06/12/24 03:46
ALT 49 U/L (0-50) 06/12/24 03:46
Alkaline Phosphatase 246 U/L (38-126) H 06/12/24 03:46
Total Protein 4.1 g/dl (6.3-8.2) L 06/12/24 03:46
Albumin 2.1 g/dl (3.5-5.0) L 06/12/24 03:46
Physical Exam
-
NAD AAOx3
ABD: soft, ND, obese, nontender
incision with intact staple line
DAVID with light SSF, nonpurulent, non bilious
[2024-06-15] MEDS: TYLENOL 650 MG PO ×2 (09:49→20:47)
[2024-06-15 10:44] VITALS: BP 96/53; PULSE 85; O2SAT 98
[2024-06-15 10:59] LABS: Blood Urea Nitrogen 11 mg/dl (9-20); Calcium 7.9 mg/dl (8.4-10.2); Carbon Dioxide 23 mmol/L (22-30); Chloride 110 mmol/L (98-107); Estimated Creatinine Clearance 91 ml/min; Glucose 184 mg/dl (70-99); Potassium 3.8 mmol/L (3.5-5.1); Sodium 137 mmol/L (135-145); eGFR > 60.00
--- NOTE | 2024-06-15 11:23 | W.PN.ID1 ---
Date of Service
Date of Service: June 15, 2024
Today's Communication
Continue Augmentin 875mg po bid through 06/19
Assessment / Plan
# Perforated giant duodenal ulcer with peritonitis
- 06/06 s/p ex-lap, primary repair, perforated duodenal ulcer with omental pedicle flap.
- OR gram stain: moderate GPC, cx neg to date; Anaerobic cx - NG
- s/p Unasyn x7 days
- Continue Augmentin 875mg po bid through 06/19
# leukocytosis
- resolved
# Post-op ileus
-resolved
# Anemia (acute blood loss) with maroon/bloody stools.
# Tobacco use disorder
# DM
# AAA
#Additional Past Medical History:
Duodenal ulcer
DM
HTN
GERD
Abdominal aortic aneurysm 5.7 cm
Chief Complaint
-: Other (Perforated viscus)
Subjective / Review of Systems
No complaints.
Vital Signs / Physical Exam
Vital Signs
Vital Signs
Temp Pulse Resp BP Pulse Ox
98.4 F 95 19 120/56 98
06/15/24 07:16 06/15/24 07:16 06/15/24 07:16 06/15/24 07:16 06/15/24 08:20
Physical Exam
Constitutional: No Acute Distress and Comfortable
Objective Data
Lab Data
Lab Results
06/15/24 09:58
PT 15.9 Sec (11.4-14.6) H 06/12/24 03:46
INR 1.26 06/12/24 03:46
APTT 33.8 Sec (23.4-35.0) 06/12/24 03:46
Estimated Creat Clear 91 ml/min 06/15/24 09:58
Lactic Acid 1.2 mmol/L (0.7-2.0) 06/08/24 02:04
Total Bilirubin Cancelled 06/15/24 06:00
AST Cancelled 06/15/24 06:00
ALT Cancelled 06/15/24 06:00
Alkaline Phosphatase Cancelled 06/15/24 06:00
Most recent labs reviewed.
Micro Results:
06/06/24 11:50 Blood Culture - Final
Blood/Venous No Growth - Final Report
06/06/24 11:50 Blood Culture - Final
Blood/Venous No Growth - Final Report
06/06/24 14:11 Wound Culture - Final
Abdomen No growth
Gram Stain - Final
06/06/24 14:11 Anaerobic Culture - Final
Peritoneal Fluid NO ANAEROBES ISOLATED
06/10/24 CT a/P: No findings to suggest active colonic bleeding.
Small bilateral simple renal cysts as well as additional subcentimeter low-attenuation renal lesions too small to characterize. Single 1.2 cm slightly high attenuation left renal cyst without postcontrast enhancement, likely representing a
hyperdense cyst.
Dilation of the intestinal tract limited without oral contrast without gross findings to suggest accompanying inflammatory changes.
06/08/24 CT a/p: 1. No foci of contrast extravasation to suggest active gastrointestinal hemorrhage at the time of imaging.
2.Small amount of hyperattenuating fluid within the duodenum, which may represent blood products.
3. Suggestion of mild postoperative ileus.
4. Small amount of free intraperitoneal air, likely postoperative.
5. Small bilateral pleural effusions, with likely bibasilar subsegmental atelectasis.
6. Abdominal aortic aneurysm, measuring 5.7 cm in greatest orthogonal dimension.
7. Multifocal arterial stenoses within both common iliac, external iliac, and common femoral arteries. If there is clinical suspicion of significant peripheral arterial disease, consider ankle-brachial indices.
06/06/24 CTA C/A/P: Diffuse duodenitis. Duodenal perforation. No focal collection or abscess. Discussed with Dr. Rodgers at 11:48 AM on 06/06/2024, and reviewed with Dr. Sanchez. Mid to distal infrarenal abdominal aortic fusiform aneurysm without
secondary complications. No evidence to suggest impending rupture. No dissection.
[2024-06-15 11:45] LABS: Glucose - Point of Care 181 mg/dl (70-99)
[2024-06-15 11:56] LABS: Hematocrit 23.5 % (39.0-52.0); Mean Corpuscular Hgb 30.9 pg (27.0-31.0); Mean Corpuscular Volume 90.7 fL (80.0-94.0); Mean Platelet Volume 10.1 fL (7.4-10.4); Platelet Count 368 10^3/uL (130-400); Red Blood Cell Count 2.59 10^6/uL (4.70-6.10); Red Cell Dist. Width 16.4 % (11.5-14.5); White Blood Cell Count 8.7 10^3/uL (4.8-10.8)
--- NOTE | 2024-06-15 15:09 | CM ---
Discharge Plan of Care: Home with [facility] VN and PT.
[2024-06-15 15:22] VITALS: BP 96/51
--- NOTE | 2024-06-15 16:53 | W.PN.HOSP.TC ---
Today's Communication/Plan
-
Monitor hemoglobin.
Continue oral antibiotics through 06/19.
DAVID drain removed.
Diet has been advanced
Discharge planing.
Assessment / Plan
Assessment / Plan
Impression:
Presented with severe abdominal pain.
Perforated duodenal ulcer with pneumoperitoneum
� Status post exploratory laparotomy, primary repair of perforated duodenal ulcer with omental pedicle flap 06/06.
Acute blood loss anemia from gastrointestinal bleed/bright red blood per rectum
Sepsis
Shock, likely combination of sepsis and secondary to acute blood loss anemia.
Lactic acidosis
Hyperglycemia
Conditions prior to admission:
PAD/abdominal aortic aneurysm 5.6 cm
Essential hypertension
Insulin requiring diabetes
GERD.
27-atod-tvix tobacco smoking.
Emphysema.
Plan
06/14/24 -- cont with PT/OT to build stamina--add IS, encourage OOB
#Sepsis secondary to perforated duodenal ulcer resulting peritonitis
Status post OR 06/06 with exploratory laparotomy, primary repair perforated duodenal ulcer with omental pedicle flap 06/06
H/O GERD/history of duodenal ulcer/gastritis
Blood culture NGTD
CT angio 06/08 negative for bleed
ID following, antibiotics changed to Unasyn and to Augmentin on 06/13
OR with gram-positive cocci
Diet has been advanced to low residue on 06/13
Continue with PPI changed from drip to twice daily, eventually transition to p.o.
Monitor DAVID drain output
#Lactic acidosis
resolved
Acute hypoxic respiratory insufficiency--
Suspect secondary to atelectasis
Chest x-ray with no acute infiltrates.
Monitor.
Increase activity
#Anemia- Due to acute blood loss anemia
Bright red blood per rectum overnight on 06/10
2 unit PRBC 06/09, 3 units 06/10; hemoglobin 6.6 06/10; monitor. CTA 06/10 without any acute GI bleeding. now no more bleeding episodes; hemoglobin 8.3. Continue to monitor
TXA surgery
Continue to monitor hemoglobin with blood transfusion--
#History of hypertension
Hold lisinopril
Hydralazine as needed
#Diabetes mellitus
A1c 7.5
With diet advanced, transition off insulin drip to subcutaneous Lantus with addition of glyburide.
Hyponatremia improved
Hypophosphatemia
Replete
#History of smoking
Cessation advised
Nicotine patch
#Hypocalcemia-Check Vit D and replace calcium
#Abdominal aortic aneurysm, measuring 5.7 cm in greatest orthogonal dimension.
#PAD-Multifocal arterial stenoses within both common iliac, external iliac, and common femoral arteries.
HO when stable
#50 pound weight loss over the past year -Needs OP work up
#Hepatic Steatosis
#Hypoalbuminemia
#Diverticulosis
#History of hepatitis A
#2.3 mm noncalcified nodule in the anterolateral inferior right upper lobe-OP follow up
#Nutrition-
#DVT prophylaxis-Lovenox
#Full code
Anticipated Discharge: 24 - 48 hours
Subjective/Interval History
-
Date of Service: June 15, 2024
Objective Data
-
Labs:
Laboratory Results
06/15/24 06/15/24 06/15/24
06:00 09:46 09:58
WBC Cancelled 8.7
Hgb Cancelled 8.0 L
Hct Cancelled 23.5 L
Plt Count Cancelled 368 D
Sodium Cancelled 137
Potassium Cancelled 3.8
Chloride Cancelled 110 H
Carbon Dioxide Cancelled 23
BUN Cancelled 11
Creatinine Cancelled 0.8
Glucose Cancelled 184 H
Calcium Cancelled 7.9 L
Total Bilirubin Cancelled
AST Cancelled
ALT Cancelled
Alkaline Phosphatase Cancelled
Vital Signs:
Vital Signs
Temp Pulse Resp BP Pulse Ox
98.9 F 84 19 96/51 99
06/15/24 15:22 06/15/24 15:22 06/15/24 15:22 06/15/24 15:22 06/15/24 15:22
I&O
06/14/24 06/15/24 06/16/24
06:59 06:59 06:59
Intake Total 3960 / 3960 2640 / 2640
Output Total 3400 / 3400 3175 / 3175
Balance 560 / 560 -535 / -535
Physical Exam
-
General: Well Developed, Well Nourished and No Apparent Distress
HEENT: Normocephalic and Atraumatic
Respiratory: Clear to Auscultation; Negative Wheezes or Rhonchi
Cardiac: Regular Rhythm and S1/S2; Negative Murmur
GI: Soft, Normal Bowel Sounds, Tender (minimal), Distended and Other (DAVID drain in place)
Musculoskeletal: No Clubbing, No Cyanosis and No Edema
Neuro: Awake and Alert
[2024-06-15 16:58] LABS: Glucose - Point of Care 206 mg/dl (70-99)
[2024-06-15] MEDS: NOVOLOG FLEXPEN-MODERATE RESISTANCE 3 UNITS SC (17:33)
[2024-06-15] MEDS: GLUCOTROL 5 MG PO (17:34)
[2024-06-15 21:35] LABS: Glucose - Point of Care 201 mg/dl (70-99)
[2024-06-15] MEDS: LANTUS 0.22 UNITS SC (22:11)
[2024-06-15 22:59] VITALS: BP 107/75
[2024-06-16 06:00] VITALS: BMI 32.7
[2024-06-16 07:19] VITALS: BP 114/85
[2024-06-16 07:29] LABS: Glucose - Point of Care 162 mg/dl (70-99)
--- NOTE | 2024-06-16 07:33 | PN.DE.MGMTRT ---
Insulin Management
- -
06/16/2024: Diabetes Management Follow up
Patient admitted 06/06 with abdominal pain, perforated viscus, perforated duodenal ulcer-->exploratory lap and repair of perforated ulcer/viscus.
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 A1C 7.5% Cr 0.8 eGFR >60. Patient normally sees Kevin Laws PA-C and Dr. Desai for diabetes management and uses a CGM- [place] for glucose monitoring at home.
Patient is awake, alert and oriented, offers no complaints, able to discuss diabetes management, eager to go home.
POD # 10 s/p exploratory lap and repair of perforated ulcer/viscus.
Diet was advanced and is tolerating. Pre meal Glucose has been 166 to 200, fasting 162 this AM
Glucotrol Increased from 2.5 mg BID to to 5mg BID, and Lantus to 22 units @ HS discussed with pt and he was agreeable.
D/C regimen: Glucotrol to 5mg BID, and Lantus to 22 units @ HS. Encouraged pt to f/u with his Endocrine specialist after discharge.
Diabetes History
- -
Type of Diabetes: 2 requiring insulin
Pre-Admission Diabetes Regimen
06/15/24 06/15/24
06:00 09:58
Creatinine Cancelled 0.8
Lab Results
Hemoglobin A1c 7.5 % (4.0-5.6) H 06/07/24 03:22
Insulin Pump Settings
IP Diabetes Regimen
06/15/24 06/15/24 06/15/24
06:00 07:54 09:58
Glucose Cancelled 184 H
POC Glucose 166 H
06/15/24 06/15/24 06/15/24
11:43 16:56 21:34
Glucose
POC Glucose 181 H 206 H 201 H
06/16/24
07:19
Glucose
POC Glucose 162 H
Meal type: Breakfast
Amount consumed: 100%
Patient Education
[2024-06-16] MEDS: NSS (PRESERVATIVE FREE) 10 ML IV (09:00)
[2024-06-16] MEDS: GLUCOTROL 5 MG PO (09:00)
[2024-06-16] MEDS: PROTONIX IV 40 MG IV (09:00)
[2024-06-16] MEDS: AUGMENTIN 875 MG/125 MG 1 TABLET PO (09:01)
[2024-06-16] MEDS: NICODERM TRANSDERMAL 21 MG TRANSDERM (09:01)
[2024-06-16] MEDS: NOVOLOG FLEXPEN-MODERATE RESISTANCE 1 UNITS SC (09:01)
[2024-06-16] MEDS: PRED FORTE 1% EYE DROPS 1 DROP LEFT EYE (09:01)
--- NOTE | 2024-06-16 09:55 | W.PN.ID1 ---
Date of Service
Date of Service: June 16, 2024
Today's Communication
Continue Augmentin 875mg po bid through 06/19
Assessment / Plan
# Perforated giant duodenal ulcer with peritonitis
- 06/06 s/p ex-lap, primary repair, perforated duodenal ulcer with omental pedicle flap.
- OR gram stain: moderate GPC, cx neg to date; Anaerobic cx - NG
- s/p Unasyn x7 days
- Continue Augmentin 875mg po bid through 06/19
# leukocytosis
- resolved
# Post-op ileus
-resolved
# Anemia (acute blood loss)
# Tobacco use disorder
# DM
# AAA
#Additional Past Medical History:
Duodenal ulcer
DM
HTN
GERD
Abdominal aortic aneurysm 5.7 cm
Chief Complaint
-: Other (Perforated viscus)
Subjective / Review of Systems
Has decreased stamina today.
Vital Signs / Physical Exam
Vital Signs
Vital Signs
Temp Pulse Resp BP Pulse Ox
98.3 F 82 17 114/85 98
06/16/24 07:19 06/16/24 07:19 06/16/24 07:19 06/16/24 07:19 06/16/24 07:19
Physical Exam
Constitutional: No Acute Distress and Comfortable
Cardiovascular: Regular Rate and S1/S2
Gastrointestinal: Soft, Non Tender and Non Distended
Neurological: AO x 3
Objective Data
Lab Data
Lab Results
06/15/24 09:58
PT 15.9 Sec (11.4-14.6) H 06/12/24 03:46
INR 1.26 06/12/24 03:46
APTT 33.8 Sec (23.4-35.0) 06/12/24 03:46
Estimated Creat Clear 91 ml/min 06/15/24 09:58
Lactic Acid 1.2 mmol/L (0.7-2.0) 06/08/24 02:04
Total Bilirubin Cancelled 06/15/24 06:00
AST Cancelled 06/15/24 06:00
ALT Cancelled 06/15/24 06:00
Alkaline Phosphatase Cancelled 06/15/24 06:00
Most recent labs reviewed.
Micro Results:
06/06/24 11:50 Blood Culture - Final
Blood/Venous No Growth - Final Report
06/06/24 11:50 Blood Culture - Final
Blood/Venous No Growth - Final Report
06/06/24 14:11 Wound Culture - Final
Abdomen No growth
Gram Stain - Final
06/06/24 14:11 Anaerobic Culture - Final
Peritoneal Fluid NO ANAEROBES ISOLATED
06/10/24 CT a/P: No findings to suggest active colonic bleeding.
Small bilateral simple renal cysts as well as additional subcentimeter low-attenuation renal lesions too small to characterize. Single 1.2 cm slightly high attenuation left renal cyst without postcontrast enhancement, likely representing a
hyperdense cyst.
Dilation of the intestinal tract limited without oral contrast without gross findings to suggest accompanying inflammatory changes.
06/08/24 CT a/p: 1. No foci of contrast extravasation to suggest active gastrointestinal hemorrhage at the time of imaging.
2.Small amount of hyperattenuating fluid within the duodenum, which may represent blood products.
3. Suggestion of mild postoperative ileus.
4. Small amount of free intraperitoneal air, likely postoperative.
5. Small bilateral pleural effusions, with likely bibasilar subsegmental atelectasis.
6. Abdominal aortic aneurysm, measuring 5.7 cm in greatest orthogonal dimension.
7. Multifocal arterial stenoses within both common iliac, external iliac, and common femoral arteries. If there is clinical suspicion of significant peripheral arterial disease, consider ankle-brachial indices.
06/06/24 CTA C/A/P: Diffuse duodenitis. Duodenal perforation. No focal collection or abscess. Discussed with Dr. Rodgers at 11:48 AM on 06/06/2024, and reviewed with Dr. Sanchez. Mid to distal infrarenal abdominal aortic fusiform aneurysm without
secondary complications. No evidence to suggest impending rupture. No dissection.
--- NOTE | 2024-06-16 10:21 | W.DS.TRANS ---
DC Summary - Roll Skinner
-
Discharge Instructions:
Discharge Diagnosis/Procedures Perforated duodenal ulcer with exploratory
laparotomy and primary repair of perforated
giant duodenal ulcer with omental pedicle flap
Diet Low Fiber
Additional Diets eat small, soft meals
Activity No strenuous activity
Additional Activity Do not lift more than 15lbs for the next 4-6
weeks
Driving Restrictions Wait until comfortable twisting and off
narcotics
Bathing Restrictions OK to Shower
Wound Care Ok to wash incision with soap and water. Kirstin
will be removed during your follow up visit
with your surgeon. Call your surgeon if you
develop fevers or worsening pain.
You must quit smoking as it is linked to stomach
and duodenal ulcers such as the one you had. Do
not take NSAID medications (Advil, Aleve,
Aspirin) until cleared by your doctor to do so.
Avoid alcohol as well.
Instructions: Quitting smoking
Stand-Alone Forms:
Changes to Home Medications: Yes
Discharge Medications:
DC Medications w/original date entered in [facility]
multivitamin with folic acid 400 mcg tablet (Tab-A-Eebnezer) 1 tab PO DAILY Supplement 01/10/21
omega 5-fhe-aja-fish oil 300 mg-1,000 mg capsule (Fish Oil) 1 cap PO DAILY Supplement 01/10/21
methylsulfonylmethane 500 mg capsule 500 mg PO DAILY Supplement 06/06/24
prednisolone acetate 1 % eye drops,suspension 1 drp LEFT EYE DAILY Eye Condition 06/06/24
amoxicillin 875 mg-potassium clavulanate 125 mg tablet 1 tab PO Q12 #8 tabs 06/16/24
glipizide 5 mg tablet 5 mg PO BID@0800,1700 #60 tabs 06/16/24
insulin glargine 100 unit/mL (3 mL) subcutaneous pen (Basaglar KwikPen U-100 Insulin) 22 unit (0.22 mL) SC HS Diabetes #0 mL 06/16/24
nicotine 21 mg/24 hr daily transdermal patch 21 mg transdermal DAILY #30 ea 06/16/24
pantoprazole 40 mg tablet,delayed release (Protonix) 40 mg PO DAILY #60 tabs 06/16/24
Home Medication Changes
Lantus increased and Glyburide added.
Lisinopril stopped.
Protonix added
Completing antibiotics course through 06/19/24.
Nicotine patch started.
Pending Results: No
[2024-06-16 10:50] LABS: Hematocrit 24.7 % (39.0-52.0); Mean Corp Hgb Conc. 32.4 g/dL (33.0-37.0); Mean Corpuscular Hgb 30.5 pg (27.0-31.0); Mean Corpuscular Volume 94.3 fL (80.0-94.0); Platelet Count 452 10^3/uL (130-400); Red Blood Cell Count 2.62 10^6/uL (4.70-6.10); Red Cell Dist. Width 16.5 % (11.5-14.5); White Blood Cell Count 8.6 10^3/uL (4.8-10.8)
[2024-06-16 11:56] VITALS: BP 105/64
--- NOTE | 2024-06-16 12:04 | VNURNOTE ---
chart reviewed. Attempted to meet patient at bedside, he was not in the room. Referral in [facility], [facility]
--- NOTE | 2024-06-16 12:32 | W.PN.SURGUPD ---
Surgical Update
Surgical Update
No complaints. Denies worsening abdominal pain. No nausea or vomiting. Hemoglobin stable.
-- Okay for discharge from surgical perspective.
--- NOTE | 2024-06-16 13:01 | CM ---
Patient has been medically cleared for discharge to home with no additional skilled services. Patient has declined VN and PT HH. Son will transport home.
== END 2024-06-16 13:31 | disposition home or self-care (01) | DRG 326 ==
LOC: 2 SOUTH 16:38
PROVIDERS: Internal Medicine; Nurse Practitioner Family; Nurse Practitioner Primary Care; Physician Assistant; Registered Nurse; Surgery; ADMITTING PHYSICIAN Internal Medicine; ATTENDING PHYSICIAN Internal Medicine; CONSULT PHYSICIAN Internal Medicine Infectious Disease; CONSULT PHYSICIAN Surgery; EMERGENCY PHYSICIAN Emergency Medicine; FAMILY PHYSICIAN Family Medicine; OTHER PHYSICIAN Internal Medicine Critical Care Medicine
PROC: 0DQ90ZZ Repair Duodenum, Open Approach (ICD-10-PCS; 2024-06-06)
PROC: 0DXU0ZW Transfer Omentum to Abdominal Region, Open Approach (ICD-10-PCS; 2024-06-06)
PROC: 0D9670Z Drainage of Stomach with Drainage Device, Via Natural or Artificial Opening (ICD-10-PCS; 2024-06-06)
PROC: 02HV33Z Insertion of Infusion Device into Superior Vena Cava, Percutaneous Approach (ICD-10-PCS; 2024-06-08)
PROC: 3E0436Z Introduction of Nutritional Substance into Central Vein, Percutaneous Approach (ICD-10-PCS; 2024-06-08)
PROC: 30243N1 Transfusion of Nonautologous Red Blood Cells into Central Vein, Percutaneous Approach (ICD-10-PCS; 2024-06-08)
DX: K26.5 Chronic or unspecified duodenal ulcer with perforation (principal); A41.9 Sepsis, unspecified organism; K65.9 Peritonitis, unspecified; R65.21 Severe sepsis with septic shock; E87.20 Acidosis, unspecified; K91.89 Other postprocedural complications and disorders of digestive system; K56.7 Ileus, unspecified; J98.11 Atelectasis; D62 Acute posthemorrhagic anemia; J90 Pleural effusion, not elsewhere classified; E87.1 Hypo-osmolality and hyponatremia; E11.65 Type 2 diabetes mellitus with hyperglycemia; G47.33 Obstructive sleep apnea (adult) (pediatric); E11.51 Type 2 diabetes mellitus with diabetic peripheral angiopathy without gangrene; K21.9 Gastro-esophageal reflux disease without esophagitis; F17.210 Nicotine dependence, cigarettes, uncomplicated; D75.1 Secondary polycythemia; D72.829 Elevated white blood cell count, unspecified; I10 Essential (primary) hypertension; I71.43 Infrarenal abdominal aortic aneurysm, without rupture; J43.8 Other emphysema; E83.39 Other disorders of phosphorus metabolism; R91.1 Solitary pulmonary nodule; E88.09 Other disorders of plasma-protein metabolism, not elsewhere classified; I95.81 Postprocedural hypotension; E83.51 Hypocalcemia; R09.02 Hypoxemia; R06.89 Other abnormalities of breathing; Y83.8 Other surgical procedures as the cause of abnormal reaction of the patient, or of later complication, without mention of misadventure at the time of the procedure; K92.1 Melena; K76.0 Fatty (change of) liver, not elsewhere classified; Z80.0 Family history of malignant neoplasm of digestive organs; Z87.11 Personal history of peptic ulcer disease; Z87.19 Personal history of other diseases of the digestive system; Z79.4 Long term (current) use of insulin
CPT/HCPCS: 71045; 71275; 74174; 80048; 80053; 82330; 82607; 82728; 82962; 83036; 83540; 83550; 83605; 83690; 83735; 83880; 84100; 84134; 84478; 85014; 85018; 85025; 85027; 85610; 85730; 86850; 86900; 86901; 86920; 87040; 87070; 87075; 87205; 93005; 94640; 94667; 94668; 96365; 96375; 96376; 97116; 97163; 97167; 97530; 97535; 99291; P9016; P9058; Q9967

== ENCOUNTER 2024-07-29 06:12 | Inpatient (IN) | payer MEDICARE, OTHER, SELFPAY ==
[2024-07-24 11:38] LABS: % Eosinophils 3.3 % (0-6); % Immature Granulocytes 0.2 % (0-0.5); % Monocytes 11.5 % (1.7-9.3); Absolute Eosinophils 0.1 10^3/uL (0-0.7); Absolute Lymphocytes 1.4 10^3/uL (1.2-3.4); Absolute Monocytes 0.5 10^3/uL (0.1-0.6); Absolute Neutrophils 2.1 10^3/uL (1.4-6.5); Hematocrit 34.7 % (39.0-52.0); Hemoglobin 11.3 g/dL (13.0-18.0); Mean Corp Hgb Conc. 32.6 g/dL (33.0-37.0); Mean Corpuscular Hgb 28.5 pg (27.0-31.0); Mean Corpuscular Volume 87.6 fL (80.0-94.0); Mean Platelet Volume 9.5 fL (7.4-10.4); Nucleated Red Blood Cells % 0 % (-); Platelet Count 275 10^3/uL (130-400); Red Blood Cell Count 3.96 10^6/uL (4.70-6.10); Red Cell Dist. Width 14.6 % (11.5-14.5); White Blood Cell Count 4.2 10^3/uL (4.8-10.8)
[2024-07-24 11:50] LABS: INR 1.11; PT 14.2 Sec (11.4-14.6)
[2024-07-24 11:51] LABS: APTT 31.9 Sec (23.4-35.0)
[2024-07-24 12:23] LABS: Blood Urea Nitrogen 20 mg/dl (9-20); Calcium 9.1 mg/dl (8.4-10.2); Carbon Dioxide 22 mmol/L (22-30); Chloride 110 mmol/L (98-107); Glucose 123 mg/dl (70-99); Potassium 4.5 mmol/L (3.5-5.1); Sodium 142 mmol/L (135-145); eGFR > 60.00
[2024-07-29] VITALS (19 sets, daily range): BP systolic 94–144; BP diastolic 60–83; BMI 32.9
[2024-07-29] MEDS: BACTROBAN NASAL 1 GRAM NASAL (06:59)
[2024-07-29] MEDS: PERIDEX 0.12% ORAL RINSE 15 ML PO (06:59)
[2024-07-29] MEDS: NSS 267 ML IV (07:00)
[2024-07-29 07:08] LABS: Glucose - Point of Care 130 mg/dl (70-99)
[2024-07-29 09:15] LABS: Glucose - Point of Care 140 mg/dl (70-99)
--- NOTE | 2024-07-29 09:25 | W.SUR.POST ---
Surgical Immediate Post Op
Note
Pre Op Diagnosis: AAA
Post Op Diagnosis: AAA
Procedure Performed: EVAR (endologix), stent placed to right external iliac artery
Primary Surgeon: Keon
Anesthesia: General
Estimated Blood Loss: 15cc
Fluids: See anesthesia flow sheet
Drains/Shunts: none
Specimens/Cultures: none
Doppler/Duplex/Angio (Y/N): Y
Complications: none
Operative Findings: No endoleak
[2024-07-29] MEDS: DILAUDID 0.25 MG IV ×3 (10:05→10:46)
[2024-07-29 10:19] LABS: Hemoglobin 10.6 g/dL (13.0-18.0); Mean Corp Hgb Conc. 33.1 g/dL (33.0-37.0); Mean Corpuscular Hgb 28.9 pg (27.0-31.0); Mean Corpuscular Volume 87.2 fL (80.0-94.0); Mean Platelet Volume 9.2 fL (7.4-10.4); Platelet Count 222 10^3/uL (130-400); Red Blood Cell Count 3.67 10^6/uL (4.70-6.10); Red Cell Dist. Width 14.7 % (11.5-14.5); White Blood Cell Count 4.9 10^3/uL (4.8-10.8)
[2024-07-29 10:28] LABS: Blood Urea Nitrogen 17 mg/dl (9-20); Calcium 8.7 mg/dl (8.4-10.2); Carbon Dioxide 21 mmol/L (22-30); Chloride 111 mmol/L (98-107); Estimated Creatinine Clearance 91 ml/min; Glucose 154 mg/dl (70-99); Potassium 4.4 mmol/L (3.5-5.1); Sodium 141 mmol/L (135-145); eGFR > 60.00
[2024-07-29 10:29] LABS: INR 1.16; PT 14.9 Sec (11.4-14.6)
[2024-07-29 10:30] LABS: APTT 33.6 Sec (23.4-35.0)
[2024-07-29] MEDS: NSS 1000 IV ×2 (10:32→22:36)
--- NOTE | 2024-07-29 11:30 | TRANSFER ---
Patient transferred to ICU, telephone and bedside report and site and csm checks with Kayla Pickard RN. Patient restful and alert. Felix blount RN BSN.
[2024-07-29 12:17] LABS: Glucose - Point of Care 183 mg/dl (70-99)
--- NOTE | 2024-07-29 12:30 | PTCARENOTE ---
Rec'd pt at 1135 via bed from PACU. Rec'd pt sl groggy but then easily awake alert and oriented. SIMS. Speech is clear. Skin is pale pink wm and dry. Respirs are unlabored- Rec'd pt on 2l nc with sats of 99%. BS are coarse and decreased posteriorly.
Coughing a moist non-prod cough. Monitor SR. + pulses. PT and DP pulses with the doppler. Bilateral legs are warm. +1 edema. Bilateral groin incisions are approximated with surgical adhesive present. No swelling or drainage. Denies chest pain. R
radial a line is intact- site wnl. Zeroed and recalibrated. Overall congruent with cuff bp. Goal SYST bp 100-165, Waveform as documented. Abd is round and soft with hypoactive BS. Denies nausea. Taking sips of clear liquids. Thermistor town[place] intact
intact. Draining pale yellow urine. IV NSS infusing at 80 ml/hr via L arm IV site. Repositioned. Skin and mouth care given. Call pride in reach. Plan of care reviewed with. Pts son in to see pt and updated.
[2024-07-29] MEDS: PROTONIX 40 MG PO (12:56)
[2024-07-29] MEDS: PLAVIX 75 MG PO (12:56)
[2024-07-29] MEDS: LOW STRENGTH ASPIRIN 81 MG PO (12:56)
[2024-07-29] MEDS: NOVOLOG FLEXPEN-LOW RESISTANCE 1 UNITS SC ×2 (13:39→17:54)
--- NOTE | 2024-07-29 13:57 | PTCARENOTE ---
Pulses unchanged. Bilat groin sites unchanged. Remains resting -working on clear liquids. HOB at 30'. Pts son at the bedside
--- NOTE | 2024-07-29 14:00 | PTCARENOTE ---
Pt changed to RA with sats of 95%
--- NOTE | 2024-07-29 14:46 | OR.RPT ---
Operative Report
Operative Report
PROCEDURE DATE: 07/29/2024
Preoperative diagnosis:
1. Abdominal aortic aneurysm.
2. Debilitating right lower extremity thigh claudication.
Postoperative diagnosis: Same
Procedure:
1. Endovascular repair of abdominal aortic aneurysm with aortobiiliac endoprosthesis (Endologix AFX 2, 25 mm x 90 mm) with extension cuff with suprarenal stents (28 mm x 95 mm).
2. Percutaneous bilateral common femoral artery closure.
3. Right external iliac artery angioplasty and stent with Incentivyze Zilver PTX 7 mm x 80 mm drug-eluting self-expanding stent.
4. Supervision and interpretation.
Surgeon: Keon
Oil Well Logger: None
Complications: None
Anesthesia: General
Indications for procedure:
Abdominal aortic aneurysm measuring 5.7 cm. Risk/benefits/alternatives of endovascular repair of abdominal aortic aneurysm all fully discussed. Patient understood all wish to proceed. Of note patient had significant right external iliac artery
stenosis as well as claudication.
Description of procedure:
Patient was identified brought to the operating room placed on the table in supine position. After the adequate administration of anesthesia and perioperative antibiotics he was prepped and draped in the standard surgical fashion. A standard
preoperative timeout was undertaken and everybody was in agreement the plan. Bilateral common femoral artery access was obtained under direct duplex ultrasound guidance. 6 Barbadian sheaths were placed over 0.035 inch wires.
On the left side percutaneous sutures (Yu Perclose) were deployed in the standard fashion using preclosed technique at the 10:00 and 2 o'clock position and suture strands tacked outside the skin. Then we exchanged for a 11 Barbadian sheath. On
the right side we upsized over a 0.035 inch wire for a 7 Barbadian by 23 cm sheath. Now using a glide catheter exchanged for a Lunderquist wire from the left groin access. Next we ran a 14 mm dilator up the left side (exchanging out the 11 Barbadian
sheath) given somewhat small size of the iliac we wanted to make sure that we would not have trouble with her sheath. The 14 mm dilator went without difficulty and therefore we then advanced the Endologix 17 Barbadian sheath into the abdominal aorta.
From the right sided access, we advanced a snare wire and catheter. Next, the endograft was oriented and loaded on the left sided wire and advanced through the sheath. (KME74-10/120-30). Contralateral wire was then loaded through the 17 Barbadian
ipsilateral sheath. This was then snared in the aorta using the snare that had been positioned up the right sided access. It was then pulled out the contralateral 7 Barbadian sheath side. Now that we had through and through access, the AFX 2 device
was fully advanced and mated into the introducer sheath. Then the device was then advanced through the sheath until it was into the aorta and above the bifurcation (both limbs/iliac limbs above the aortic bifurcation). Care was taken to relieve
any wire wrap. The graft was pulled down to the bifurcation. Graft was then positioned on the aortic bifurcation. The main body was then deployed by pulling on the control handle and pulling the cord. The contralateral iliac limb was then
deployed by pulling the yellow limb cover. Next the pigtail catheter was advanced over the contralateral wire until it was in contact with the wire lock. The pigtail catheter was advanced forward while the wire was withdrawn thereby dissociating
the contralateral wire. The pigtail catheter was advanced forward/cephalad. The ipsilateral limb was then deployed by pinning the inner core and retracting the AFX introducer sheath to unsheathed the remainder of the ipsilateral limb.
Now, the introducer was then mated again with the sheath and then the entirety of the system was advanced into the suprarenal aorta. The initial delivery device was then withdrawn out of the sheath maintaining the sheath in the suprarenal aorta.
We then advanced a 28 x 95 suprarenal stent endograft cuff (AFX-2 A-28-28/C95-020 V). At this point we then obtained a power injection aortogram and marked the level of the renal arteries on the screen. Aortic bifurcation was also noted. We
then began unsheathing the extension cuff (after having made it into the delivery sheath), intentionally starting high. We then pulled it down such that the top of the fabric was just below the lower right renal artery. I then completed deployment
confirming that distally it would be within the main aortic body of the distal graft piece. It was completely on sheath and were happy with its positioning. The delivery device was then removed from the sheath. A molding balloon was then advanced
and proximal seal zone and all overlaps were then molded into place. The left iliac distal component was molded as well. Completion aortography demonstrated excellent result with good positioning stent graft, no evidence of endoleak, good filling
of both renal arteries and both hypogastric arteries. We confirmed on angiogram no evidence of a type Ib endoleak as well. Next, having been satisfied, we used a 12 x 4 mm angioplasty balloon to mold/post angioplasty of the right common iliac
portion of the stent. We are very satisfied with this now.
Now at this point, I performed retrograde right iliac angiogram through the existing 7 Barbadian sheath. Identified the severe stenosis in the external iliac artery. Marked on the screen. Then used a Incentivyze Zilver PTX 7 mm x 80 mm self-expanding stent
to encompass that segment. This was post angioplastied with a 6 mm angioplasty balloon. Completion angiogram demonstrated excellent result with no residual stenosis. At this point is very satisfied.
Next, I removed the sheath in the left groin while cinching down the percutaneous sutures. Once hemostasis was noted the wire was then withdrawn, the knot was tightened with a knot pusher. Hemostasis was confirmed. The knot was then locked and
the suture strands trimmed. On the right side, I used a single Perclose suture while removing the sheath to obtain hemostasis. Hemostasis was fully achieved bilateral groins with good femoral pulses bilaterally. The small skin incisions in the
left groin was then closed with 4-0 Monocryl subcuticular stitch and Dermabond was applied. Dermabond was applied to the right groin puncture site. Patient tolerated procedure well. He had palpable right DP and dopplerable left PT upon completion.
--- NOTE | 2024-07-29 15:34 | W.PN.INTV ---
Today's Communication / Plan
Recommendations
Continue neuro and vascular checks as per protocol. Will continue to monitor patient and assess whether patient is stable and once patient has reached maximal benefit from this hospital stay we will move forward with discharge planning.
Assessment
-
Assessment: Patient is a 68-year-old gentleman s/p recent surgical intervention for perforated duodenal ulcer who was found to have a abdominal aortic aneurysm on incidental finding during a hospital workup for abdominal pain. Patient has a medical
history of hyperlipidemia, essential hypertension, nicotine dependence, basal cell carcinoma, hematuria, GI bleed, diverticulosis, multiple disc herniations, and septic shock. Abdomen/pelvis CT conducted on 06/08/2024 showed an infrarenal abdominal
aortic aneurysm measuring 5.[address]. [address]s conducted on 06/10/2024 confirmed the abdominal aortic aneurysm measuring 5.7 cm. After meeting with vascular surgery and discussing the risks and benefits of undergoing endovascular repair of
abdominal aortic aneurysm he decided to move forward with the procedure. Patient underwent EVAR (endologix) and had a stent placed to right external iliac artery, conducted by Dr. Herbert on 07/29/2024 at [facility]. Patient tolerated the
procedure well and was transferred to the ICU for further observation.
Past medical history/chronic conditions: Hyperlipidemia, essential hypertension, abdominal aortic aneurysm, nicotine dependence, basal cell carcinoma, hematuria, GI bleed, diverticulosis, herniations, and septic shock.
Impression:
#Abdominal aortic aneurysm
S/p EVAR on 07/29/2024
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
S/p right external iliac artery angioplasty and stent with Cook Zilver PTX 7 mm x 80 mm drug-eluting self-expanding stent on 07/29/2024
# Nicotine dependence
# Hyperlipidemia
# Essential hypertension
Plan:
-Postoperative surgical intensive care unit monitoring
-Supplemental oxygen as needed
-Incentive spirometry
-Aspiration precautions
-Nebulizer use if needed�currently not bronchospastic
-Chest x-ray on 07/29/2024 showed no active cardiopulmonary disease
-Neuro and vascular checks as per protocol
-Vascular surgery following - correspondence and operative notes reviewed
-Monitor blood pressure - currently 122/68
-Allow for mild permissive hypertension
-Cardene drip if needed
-Follow hemoglobin � currently 10.6 on 07/29/2024
-Patient hemodynamically stable
-Follow blood sugars - Currently 154 on 07/29/2024
-Patient currently on low resistance insulin sliding scale.
-DVT prophylaxis -held until cleared by vascular
-2000-calorie diabetic diet
-Early mobilization as tolerated
-FULL CODE
Subjective Dataa
Subjective Data
Date of Service:
Date of Service: July 29, 2024
Met with patient at the bedside. Patient's somnolent coming off of anesthesia from prior procedure. Patient offers no complaints and is comfortable while laying in bed.
Objective Data
Data Reviewed
Vital Signs / I&O / Oxygen:
Vital Signs
Temp Pulse Resp BP Pulse Ox
97.8 F 64 13 122/68 95
07/29/24 11:45 07/29/24 14:00 07/29/24 14:00 07/29/24 14:00 07/29/24 14:00
Intake and Output
07/28/24 07/29/24 07/30/24
06:59 06:59 06:59
Intake Total 422 / 422
Output Total 310 / 310
Balance 112 / 112
SaO2 95
Nasal Cannula flow liters per 2
minute
Physical Exam
General: Comfortable
HEENT: Normocephalic and Anicteric
Cardiovascular: Regular Rhythm
Respiratory: Clear and Non-Labored Respirations
GI: Soft, Non Distended, Non Tender and Normal Bowel Sounds
Neurology: Awake, Alert and Oriented
Labs/Micro/Reports
Lab Data
07/29/24 10:03
07/29/24 10:03
Laboratory Results
07/29/24
10:03
PT 14.9 H
INR 1.16
APTT 33.6
[2024-07-29] MEDS: HEPARIN 5000 UNITS SC ×2 (16:56→23:34)
--- NOTE | 2024-07-29 17:00 | PTCARENOTE ---
Pt dozing at intervals. States only time he is sore is when he moves but otherwise is comfortable and did not want anything for pain. Respirs are unlabored on RA with sats of 95%. VS as documented. Pulses and bilat groin sites unchanged. Bella
draining good amts of pale yellow urine. Repositioned. Dinner ordered
[2024-07-29 17:42] LABS: Glucose - Point of Care 192 mg/dl (70-99)
--- NOTE | 2024-07-29 18:30 | PTCARENOTE ---
Exellent appetite for dinner. No complaints. Does have some leaking/dampness around the townsend but the townsedn is also putting out a large amt of urine. Pulses are unchanged. Call pride in reach.
--- NOTE | 2024-07-29 20:31 | PTCARENOTE ---
pt received at the bedside with previous rn- pt aox4, left pupil slightly enlarged- pt states multiple surgeries to eye- baseline- both pupils reactive. neuro status wnl. pt with doppler pedal and pt pulses. trace edema to legs- not tender or firm.
pt able to move all extremities, aware of bedrest orders. bilateral groin sites vidhya with surgical adhesive. pt on room air, nsr with 1st degree av block on monitor. right radial rufino zeroed and functioning. ivf continue as per order. pt aware of
plan of care- verbalized understanding to education. all safety precautions in place, call pride within reach.
[2024-07-29] MEDS: LANTUS 0.22 UNITS SC (22:35)
[2024-07-29 22:43] LABS: Glucose - Point of Care 180 mg/dl (70-99)
[2024-07-30] VITALS (16 sets, daily range): BP systolic 100–128; BP diastolic 47–78; BMI 32.8
--- NOTE | 2024-07-30 00:31 | PTCARENOTE ---
assessment unchanged. pt denies pain. see neurovasc sheet
[2024-07-30] MEDS: NEO-SYNEPHRINE 250 IV (01:33)
--- NOTE | 2024-07-30 01:37 | PTCARENOTE ---
systolic bps in 80s-90s- ravinder started per protocol to maintain systolic 100-165.
--- NOTE | 2024-07-30 04:32 | PTCARENOTE ---
assessment unchanged, pt turning and repositioning self, am labs sent. remains on 20mcg of ravinder for systolic goal 100-165
[2024-07-30 05:03] LABS: Blood Urea Nitrogen 14 mg/dl (9-20); Calcium 8.8 mg/dl (8.4-10.2); Carbon Dioxide 20 mmol/L (22-30); Chloride 112 mmol/L (98-107); Estimated Creatinine Clearance 104 ml/min; Glucose 133 mg/dl (70-99); Potassium 4.3 mmol/L (3.5-5.1); Sodium 142 mmol/L (135-145); eGFR > 60.00
[2024-07-30 05:04] LABS: Hemoglobin 11.3 g/dL (13.0-18.0); Mean Corp Hgb Conc. 33.2 g/dL (33.0-37.0); Mean Corpuscular Hgb 29.2 pg (27.0-31.0); Mean Corpuscular Volume 87.9 fL (80.0-94.0); Mean Platelet Volume 9.4 fL (7.4-10.4); Platelet Count 296 10^3/uL (130-400); Red Blood Cell Count 3.87 10^6/uL (4.70-6.10); Red Cell Dist. Width 14.4 % (11.5-14.5); White Blood Cell Count 9.4 10^3/uL (4.8-10.8)
[2024-07-30] MEDS: TYLENOL 650 MG PO (06:07)
[2024-07-30 06:49] LABS: INR 1.12; PT 14.4 Sec (11.4-14.6)
[2024-07-30 06:50] LABS: APTT 32.6 Sec (23.4-35.0)
--- NOTE | 2024-07-30 08:05 | W.PN.VS ---
Addendum entered and electronically signed by James Herbert MD 07/30/24 12:12:
Seen and examined with DRIVER TRAINEE. Agree with findings as noted below. Patient without specific complaints. Abdomen is soft, nondistended, nontender. Left groin groin small incision and right groin puncture site clean dry and intact. No hematoma. Feet
warm and well-perfused with palpable pedal pulses. Labs reviewed. Plan/as discussed and noted below.
Original Note:
Today's Communication / Plan
-
Patient seen and examined at bedside with Dr. James Herbert, below plan reviewed with attending.
Assessment/Plan
-
Assessment: 68-year-old male POD #1 Endovascular repair of abdominal aortic aneurysm with aortobiiliac endoprosthesis
Plan:
Discontinue IV fluid
Discontinue arterial line
Discontinue Bella catheter
OOB to chair with progression ambulation as tolerated
Possible discharge later this afternoon pending progression
Subjective Data
-
Date of Service: July 30, 2024
Patient seen and examined at bedside, offers no complaints. Reports tolerating p.o. diet. Reports well-managed postoperative pain. Denies nausea, vomiting, fever, and chills.
Objective Data
-
Vital Signs
Temp Pulse Resp BP Pulse Ox
98.1 F 74 17 106/47 96
07/30/24 03:36 07/30/24 06:15 07/30/24 06:15 07/30/24 06:00 07/30/24 06:15
Intake and Output
07/29/24 07/30/24 07/31/24
06:59 06:59 06:59
Intake Total 2912 / 2912
Output Total 3835 / 3835
Balance -923 / -923
Intake:
Oral fluids 1205 / 1205
IV fluids (Total) 1707 / 1707
Nss 1,000 ml @ 80 mls/hr IV . 1360 / 1360
[id number] ENRIQUE Rx#:[id number]
ravinder
nss 317 / 317
Output:
Urine, Bella 3835 / 3835
Lab Results
07/30/24 04:24
07/30/24 04:24
Calcium 8.8 mg/dl (8.4-10.2) 07/30/24 04:24
Physical Exam
-
AAOx3, no apparent distress
No tachycardia
No dyspnea on room air
ABD rotund, nondistended, nontender
Bilateral groin puncture sites CDI, no evidence of hematoma or edema, all surrounding compartments soft
Right PT palpable and left DP palpable, bilateral feet warm
Bella draining clear yellow urine
[2024-07-30] MEDS: PLAVIX 75 MG PO (08:12)
[2024-07-30] MEDS: PROTONIX 40 MG PO (08:12)
[2024-07-30] MEDS: LOW STRENGTH ASPIRIN 81 MG PO (08:12)
[2024-07-30] MEDS: THERAGRAN 1 TABLET PO (08:12)
[2024-07-30] MEDS: NOVOLOG FLEXPEN-HIGH RESISTANCE 1 UNITS SC (08:13)
[2024-07-30] MEDS: PRED FORTE 1% EYE DROPS 1 DROP LEFT EYE (08:13)
[2024-07-30] MEDS: HEPARIN 5000 UNITS SC (08:14)
--- NOTE | 2024-07-30 08:18 | W.PN.INTV ---
Addendum entered and electronically signed by Evans Watts MD 07/30/24 12:44:
Prior note/addendum from 12:40 PM was entered in error. Wrong patient.
-
Correct note to follow:
Again, this patient was evaluated by me with the resident. I agree with the findings and plan.
Postoperative day 1 status post EVAR. 07/29/2024.
Patient doing extremely well.
Incision is intact without hematoma
He is hemodynamically stable
He is neurologically intact
Out of bed, increase activity as able
Tolerating diet
Possible discharge planning later today.
Critical care team will sign off.
Original Note:
Today's Communication / Plan
Recommendations
Will likely move forward with discharge planning later today once it is certain that the patient is back at his baseline and has reached maximal benefit from this hospital stay.
Assessment
-
Assessment: Patient is a 68-year-old gentleman s/p recent surgical intervention for perforated duodenal ulcer who was found to have a abdominal aortic aneurysm on incidental finding during a hospital workup for abdominal pain. Patient has a medical
history of hyperlipidemia, essential hypertension, nicotine dependence, basal cell carcinoma, hematuria, GI bleed, diverticulosis, multiple disc herniations, and septic shock. Abdomen/pelvis CT conducted on 06/08/2024 showed an infrarenal abdominal
aortic aneurysm measuring 5.[address]. [address]s conducted on 06/10/2024 confirmed the abdominal aortic aneurysm measuring 5.7 cm. After meeting with vascular surgery and discussing the risks and benefits of undergoing endovascular repair of
abdominal aortic aneurysm he decided to move forward with the procedure. Patient underwent EVAR (endologix) and had a stent placed to right external iliac artery, conducted by Dr. Herbert on 07/29/2024 at [facility]. Patient tolerated the
procedure well and was transferred to the ICU for further observation.
Past medical history/chronic conditions: Hyperlipidemia, essential hypertension, abdominal aortic aneurysm, nicotine dependence, basal cell carcinoma, hematuria, GI bleed, diverticulosis, herniations, and septic shock.
Impression:
#Abdominal aortic aneurysm
S/p EVAR on 07/29/2024
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
S/p right external iliac artery angioplasty and stent with Cook Zilver PTX 7 mm x 80 mm drug-eluting self-expanding stent on 07/29/2024
# Nicotine dependence
# Hyperlipidemia
# Essential hypertension
Plan:
-Will likely move forward with discharge planning later today once it is certain that the patient is back at his baseline and has reached maximal benefit from this hospital stay.
-IV fluid, arterial line, and Bella catheter to be discontinued.
-Postoperative surgical intensive care unit monitoring
-Supplemental oxygen as needed
-Incentive spirometry
-Aspiration precautions
-Nebulizer use if needed�currently not bronchospastic
-Chest x-ray on 07/29/2024 showed no active cardiopulmonary disease
-Neuro and vascular checks as per protocol
-Vascular surgery following - correspondence and operative notes reviewed
-Monitor blood pressure - currently 106/47
-Allow for mild permissive hypertension
-Cardene drip if needed
-Follow hemoglobin � currently 11.3 on 07/30/2024
-Patient hemodynamically stable
-Follow blood sugars - Currently 133 on 07/30/2024
-Patient currently on low resistance insulin sliding scale.
-DVT prophylaxis -held until cleared by vascular
-2000-calorie diabetic diet
-Early mobilization as tolerated
-FULL CODE
Subjective Dataa
Subjective Data
Date of Service:
Date of Service: July 30, 2024
Met with patient at the bedside. Patient is calm and pleasant in discussion and offers no complaints at the present time. Patient mention speaking to Dr. Herbert about his progression after surgery. Patient is satisfied with his outcome following his
surgery.
Objective Data
Data Reviewed
Vital Signs / I&O / Oxygen:
Vital Signs
Temp Pulse Resp BP Pulse Ox
98.1 F 74 17 106/47 96
07/30/24 03:36 07/30/24 06:15 07/30/24 06:15 07/30/24 06:00 07/30/24 06:15
Intake and Output
07/29/24 07/30/24 07/31/24
06:59 06:59 06:59
Intake Total 2912 / 2912
Output Total 3835 / 3835
Balance -923 / -923
SaO2 96
Nasal Cannula flow liters per 2
minute
Physical Exam
General: Comfortable
HEENT: Normocephalic and Anicteric
Cardiovascular: Regular Rhythm
Respiratory: Clear and Non-Labored Respirations
GI: Soft, Non Distended, Non Tender and Normal Bowel Sounds
Neurology: Awake, Alert and Oriented
Labs/Micro/Reports
Lab Data
07/30/24 04:24
07/30/24 04:24
Laboratory Results
07/29/24 07/30/24
10:03 04:24
PT 14.9 H 14.4
INR 1.16 1.12
APTT 33.6 32.6
[2024-07-30 08:24] LABS: Glucose - Point of Care 127 mg/dl (70-99)
--- NOTE | 2024-07-30 08:30 | PTCARENOTE ---
Rec'd pt at 0700 awake, alert and oriented resting in bed. Overall states he slept ok last night. Denies headache or dizziness. Speech is clear. Of note from yesterday- pt has an irregular shaped L pupil from previous L eye surgery. BETHANY. Admits to a
dull 'beesting' like discomfort at his bilat groin incisions. Bilat groin incisions are approximated with surgical adhesive present. No swelling or drainage. + pulses. Able to palpate RDP and L PT. L DP and R PT are easily audible with the doppler.
Skin otherwise is warm and dry. Pt does have an existing small scabbed area on is R abd from his previous surgical drain. Tissue is pink No drainage. Respirs are unlabored on RA with sats of 98%. Bs are sl decreased at the bases otherwise clear.
Monitor SR with avb-DC. 22-.24. VS as documented. Pt with R Radial a line that overall once zeroed was congruent with the cuff BP. Site wnl. A Line dc'd at 0800 per md order. Pressure held over the site. No hematoma. Tr to +1LE edema. Legs are
warm. ABd is round and soft with + BS. No c/o nausea. Thermistor townsend with yellow urine- dc'd at 0800. IV fluids initally infusing via L arm IV site- also dc'd at 0800. Capped int intact R forearm. Pt able to help with repositioning. Breakfast
ordered. Plan of care reviewed with pt. Call bigg in reach. Dr. Herbert in to see pt.
--- NOTE | 2024-07-30 10:45 | PTCARENOTE ---
Pt with good appetite for breakfast. No c/o nausea. Currently partial CHG bath given and pt then assisted oob to the chair. Gait steady. No complaints offered. No dizziness. Pulses and groin sites unchanged. Call pride in reach
[2024-07-30 11:48] LABS: Glucose - Point of Care 157 mg/dl (70-99)
[2024-07-30] MEDS: NOVOLOG FLEXPEN-HIGH RESISTANCE 2 UNITS SC (12:24)
--- NOTE | 2024-07-30 12:49 | CM ---
Addendum entered by Jose Mayo 07/30/24 15:19:
Discharge order noted.
Pt is aware, expressed his agreement with discharge. IMM reviewed, placed on chart, pt has a copy. Pt stated his spouse will transport home.
Pt reports she does not need any after care VN services, independent with functional ability.
D/C plan: home with no needs. Spouse to transport at discharge.
Original Note:
CM following rte: discharge planning.
Discussed in rounds, reviewed pt's chart, met with pt.
Pt is a 68 year old male, admitted with primary dx of POD #1 Endovascular repair of abdominal aortic aneurysm with aortobiiliac endoprosthesis.
Pt reports he live with spouse in a rancher style house, no step to enter, has 3 supportive children. 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 No DME, VN or SNF history.
PT and OT will evaluate the pt to determine a level of care at discharge.
PCP: Eduardo Tellez
pharmacy: [address]
D/C plan: home with anticipated no needs. Family to transport at discharge.
CM will follow with discharger plan updates as hospitalization progresses
--- NOTE | 2024-07-30 13:00 | PTCARENOTE ---
Has remained sitting up in the chair. Ambulating in the room without difficulty and ambulated 1 loop in the hallway without difficulty. Gait is steady. No c/o dizziness. RA sats are 98%. VS as documented. Good appetite for lunch. Pulses and groin
sites as documented. Bilat groin incisions WAITER approximated with no swelling or drainage. Per pt has voided x2 in the toilet without diff. Call pride in reach. Will update vascular surgery for possible discharge.
--- NOTE | 2024-07-30 14:30 | W.DS.TRANS ---
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
-
Discharge Instructions:
Discharge Diagnosis/Procedures EVAR, iliac stent placement
Diet As tolerated
Activity No strenuous activity
Driving Restrictions No driving for 1 week
Bathing Restrictions OK to Shower
Instructions:
Stand-Alone Forms: DC Instr - Vascular OR
Changes to Home Medications: Yes
Discharge Medications:
DC Medications w/original date entered in [employer]
multivitamin with folic acid 400 mcg tablet (Tab-A-Ebenezer) 1 tab PO DAILY Supplement 01/10/21
omega 8-vgh-nwm-fish oil 300 mg-1,000 mg capsule (Fish Oil) 1 cap PO DAILY Supplement 01/10/21
methylsulfonylmethane 500 mg capsule 1,500 mg PO DAILY Supplement 06/06/24
prednisolone acetate 1 % eye drops,suspension 1 drp LEFT EYE DAILY Eye Condition 06/06/24
pantoprazole 40 mg tablet,delayed release (Protonix) 40 mg PO DAILY #60 tabs 06/16/24
insulin glargine 100 unit/mL (3 mL) subcutaneous pen (Basaglar KwikPen U-100 Insulin) 22 unit SC HS Diabetes 07/22/24
glipizide 5 mg tablet 5 mg PO BID 07/29/24
aspirin 81 mg chewable tablet 81 mg PO DAILY #90 tabs 07/30/24
clopidogrel 75 mg tablet 75 mg PO DAILY #90 tabs 07/30/24
Home Medication Changes
Added ASA and plavix
Pending Results: No
--- NOTE | 2024-07-30 16:00 | PTCARENOTE ---
Pt ambulating in the room on and off and has been oob since earlier. Vasc surgery updated and ok for discharge. Capped ints dc'd from R and L arms. Discharge instructions given to pt and pt discharged via wheelchair with son. Pulses and groin sites
unchanged. No complaints. Verbalized understanding of instructions. 2 stent cards also sent with pt at discharge.
== END 2024-07-30 16:28 | disposition home or self-care (01) | DRG 269 ==
LOC: ICU 06:12
PROVIDERS: Nurse Practitioner Acute Care; ADMITTING PHYSICIAN Surgery Vascular Surgery; FAMILY PHYSICIAN Family Medicine
PROC: 04V03DZ Restriction of Abdominal Aorta with Intraluminal Device, Percutaneous Approach (ICD-10-PCS; 2024-07-29)
PROC: 047H34Z Dilation of Right External Iliac Artery with Drug-eluting Intraluminal Device, Percutaneous Approach (ICD-10-PCS; 2024-07-29)
DX: I71.43 Infrarenal abdominal aortic aneurysm, without rupture (principal); I70.221 Atherosclerosis of native arteries of extremities with rest pain, right leg; I70.8 Atherosclerosis of other arteries; I77.1 Stricture of artery; E78.5 Hyperlipidemia, unspecified; I10 Essential (primary) hypertension; F17.200 Nicotine dependence, unspecified, uncomplicated; Z85.828 Personal history of other malignant neoplasm of skin; Z87.19 Personal history of other diseases of the digestive system; Z86.19 Personal history of other infectious and parasitic diseases; Z83.3 Family history of diabetes mellitus; Z80.0 Family history of malignant neoplasm of digestive organs; Z82.49 Family history of ischemic heart disease and other diseases of the circulatory system
CPT/HCPCS: 34705; 34713; 36415; 37221; 71045; 80048; 82962; 85025; 85027; 85610; 85730; 86850; 86900; 86901; 87070; 93005; C1725; C1760; C1769; C1773; C1874; C1892; C1894; Q9967

== ENCOUNTER → 2024-09-07 11:05 | Outpatient (REF) | payer MEDICARE, OTHER, SELFPAY | LOC: RAD 11:05 | PROVIDERS: ATTENDING PHYSICIAN Physician Assistant; FAMILY PHYSICIAN Family Medicine | DX: I71.43 Infrarenal abdominal aortic aneurysm, without rupture (principal) | CPT/HCPCS: 74174; Q9967 ==

== ENCOUNTER → 2024-09-24 15:10 | Outpatient (REF) | payer MEDICARE, OTHER, SELFPAY | LOC: RAD 15:10 | PROVIDERS: ATTENDING PHYSICIAN Physician Assistant; FAMILY PHYSICIAN Family Medicine | DX: I77.1 Stricture of artery (principal) | CPT/HCPCS: 93922; 93925 ==

== ENCOUNTER → 2025-04-06 10:24 | Outpatient (REF) | payer MEDICARE, OTHER, SELFPAY | LOC: RAD 10:24 | PROVIDERS: ATTENDING PHYSICIAN Surgery Vascular Surgery; FAMILY PHYSICIAN Family Medicine | DX: I71.43 Infrarenal abdominal aortic aneurysm, without rupture (principal); I77.1 Stricture of artery | CPT/HCPCS: 76770 ==

== ENCOUNTER → 2025-08-12 09:30 | Outpatient (REF) | payer MEDICARE, OTHER, SELFPAY | LOC: HWRAD 09:30 | PROVIDERS: ATTENDING PHYSICIAN Family Medicine | DX: F17.210 Nicotine dependence, cigarettes, uncomplicated (principal) | CPT/HCPCS: 71271 ==

== ENCOUNTER → 2025-10-04 09:49 | Outpatient (REF) | payer MEDICARE, OTHER, SELFPAY ==
[2025-10-04 14:36] LABS: Hematocrit 39.2 % (39.0-52.0); Hemoglobin 12.6 g/dL (13.0-18.0); Mean Corp Hgb Conc. 32.1 g/dL (33.0-37.0); Mean Corpuscular Volume 84.5 fL (80.0-94.0); Nucleated Red Blood Cells % 0 % (-); Platelet Count 229 10^3/uL (130-400); Red Cell Dist. Width 15.6 % (11.5-14.5)
[2025-10-04 14:59] LABS: ALT (SGPT) 23 U/L (0-50); AST (SGOT) 29 U/L (17-59); Albumin 4.0 g/dl (3.5-5.0); Alkaline Phosphatase 133 U/L (38-126); Blood Urea Nitrogen 19 mg/dl (9-20); Calcium 9.4 mg/dl (8.4-10.2); Carbon Dioxide 23 mmol/L (22-30); Chloride 106 mmol/L (98-107); Glucose 184 mg/dl (70-99); HDL Cholesterol 43 mg/dl; LDL Cholesterol, Calculated 109 mg/dl; Magnesium 1.8 mg/dl (1.6-2.3); Potassium 4.0 mmol/L (3.5-5.1); Sodium 136 mmol/L (135-145); Total Protein 7.5 g/dl (6.3-8.2); Uric Acid 4.4 mg/dl (3.5-8.5); Very Low Density Lipoprotein 16 mg/dl (0-30); eGFR > 60.00
[2025-10-04 15:10] LABS: Urine Character Clear (Clear)
[2025-10-04 15:20] LABS: Urine Squamous Cell 0-2 /LPF (Few)
[2025-10-04 15:21] LABS: Urine Red Blood Cell 0-2 /HPF (0-2); Urine White Cell 0-2 /HPF (0-5)
[2025-10-04 15:30] LABS: PSA, Total - Screen 3.90 ng/ml (0.0-4.0)
[2025-10-04 15:48] LABS: Microalb - Urine Creatinine 127.200 mg/dl
[2025-10-04 15:50] LABS: Microalbumin, Random Urine 6.9 mg/dl (0.6-1.7)
[2025-10-05 09:09] LABS: Glycohemoglobin (HgbA1c) 7.9 % (4.0-5.9)
[2025-10-06 21:28] LABS: HCV Quant by NAAT IU/mL Not Detected; HCV Quant by NAAT Interp Not Detected (Not Detected); HCV Quant by NAAT Log IU/mL Not Detected log IU/mL
== END ==
LOC: HWLAB 09:49
PROVIDERS: ATTENDING PHYSICIAN Physician Assistant; FAMILY PHYSICIAN Family Medicine; REFERRING PHYSICIAN Surgery Vascular Surgery
DX: E11.65 Type 2 diabetes mellitus with hyperglycemia (principal); E78.5 Hyperlipidemia, unspecified; I10 Essential (primary) hypertension; Z00.00 Encounter for general adult medical examination without abnormal findings; E78.2 Mixed hyperlipidemia; Z12.5 Encounter for screening for malignant neoplasm of prostate; R82.89 Other abnormal findings on cytological and histological examination of urine; E07.9 Disorder of thyroid, unspecified; Z20.5 Contact with and (suspected) exposure to viral hepatitis; I71.43 Infrarenal abdominal aortic aneurysm, without rupture
CPT/HCPCS: 36415; 80053; 80061; 81003; 81015; 82043; 82570; 83036; 83735; 84100; 84443; 84550; 85025; 87522; G0103

== ENCOUNTER → 2025-10-12 08:17 | Outpatient (REF) | payer MEDICARE, OTHER, SELFPAY | LOC: RAD 08:17 | PROVIDERS: ATTENDING PHYSICIAN Surgery Vascular Surgery; FAMILY PHYSICIAN Family Medicine; REFERRING PHYSICIAN Physician Assistant | DX: I71.43 Infrarenal abdominal aortic aneurysm, without rupture (principal) | CPT/HCPCS: 74174; 93922; Q9967 ==